=== PATIENT | female | born 1945 | race Caucasian/White ===

== ENCOUNTER → 2017-02-20 | Outpatient (CLI) | payer MEDICARE ==
--- NOTE | 2017-02-20 11:07 | XR ---
EXAMINATION TYPE: XR chest 2V DATE OF EXAM: 02/20/2017 COMPARISON: 07/01/2012 HISTORY: Unexpected weight loss and cough with history of tobacco abuse TECHNIQUE: Frontal and lateral views of the chest are obtained. FINDINGS: There is no focal air space opacity, pleural effusion, or pneumothorax seen. There is pulm onary hyperinflation, tapering of the pulmonary vasculature, and flattening of the diaphragms. The ca rdiac silhouette size is within normal limits. The osseous structures are intact. Degenerative shirley ges are appreciated of the thoracic spine. IMPRESSION: 1. No acute cardiopulmonary process. 2. No radiographic pulmonary nodules, however CT is better suited for assessment of pulmonary nodules . With a history of tobacco abuse low dose CT could be performed for annual lung cancer screening. 3. Radiographic sequela of COPD.
--- NOTE | 2017-02-21 09:27 | MM ---
Reason for exam: screening (asymptomatic). Last mammogram was performed 2 years and 2 months ago. History: Patient is postmenopausal. Benign stereotactic core biopsy of the right breast, December 14, 1999. Core biopsy of the right breast. Physical Findings: A clinical breast exam by your physician is recommended on an annual basis and results should be correlated with mammographic findings. MG 3D Screening Mammo W/Cad Bilateral CC and MLO view(s) were taken. Prior study comparison: December 24, 2014, bilateral MG screening mammo w CAD. May 20, 2014, left breast MG diagnostic mammo LT w CAD. December 02, 2013, bilateral MG screening mammo w CAD. The breast tissue is heterogeneously dense. This may lower the sensitivity of mammography. Finding: There are typically benign dystrophic, round, diffuse/scattered and grouped calcifications in the left breast. Previous mammotome biopsy in the right breast. Increase in number of calcifications since December 24, 2014, May 20, 2014, and December 02, 2013, but still benign morphology. ASSESSMENT: Benign, BI-RAD 2 RECOMMENDATION: Routine screening mammogram of both breasts in 1 year.
== END | disposition home or self-care (01) ==
LOC: RADMAMWWP 10:00
PROVIDERS: ATTEND Internal Medicine
DX: Z12.31 Encounter for screening mammogram for malignant neoplasm of breast (principal); R05 Cough; R91.8 Other nonspecific abnormal finding of lung field
CPT/HCPCS: 71020; 77063; G0202

== ENCOUNTER → 2017-03-01 | Outpatient (CLI) | payer MEDICARE ==
--- NOTE | 2017-03-01 13:46 | CT ---
EXAMINATION TYPE: CT chest w con DATE OF EXAM: 03/01/2017 COMPARISON: CT abdomen pelvis 04/05/2010 HISTORY: Pulmonary Nodule CT DLP: 494 mGycm Automated exposure control for dose reduction was used. CONTRAST: CT scan of the chest is performed with IV Contrast, patient injected with 100 mL of Omnipaque 300. FINDINGS: LUNGS: There is hyperinflation compatible with COPD. Upper lobe emphysematous changes are noted as we ll as biapical parenchymal scarring. No suspicious nodule or mass. No evidence for infiltrate or volu me loss. No pleural effusion detected. MEDIASTINUM: There are no greater than 1 cm hilar or mediastinal lymph nodes. No pericardial effusi on is seen. Thoracic aorta is of normal caliber. The heart is not enlarged. UPPER ABDOMEN: Nodular thickening of the left adrenal gland is stable. Splenic granulomas identified. OTHER: No additional significant abnormality is seen. IMPRESSION: 1. COPD with biapical scarring and mild emphysematous change.
== END | disposition home or self-care (01) ==
LOC: RADCTMAIN 12:16
PROVIDERS: ATTEND Internal Medicine
DX: J43.9 Emphysema, unspecified (principal); J98.4 Other disorders of lung
CPT/HCPCS: 82565; 84520; 71260; 36415; Q9967

== ENCOUNTER 2018-02-25 09:34 | Inpatient (IN) | payer MEDICARE ==
[2018-02-25] MEDS ORDERED: SODIUM CHLORIDE 0.9% 500 ML IV STA (09:49)
--- NOTE | 2018-02-25 10:02 | ED ---
General Adult HPI - General Chief complaint: Weakness Stated complaint: Leg Weakness Time Seen by Provider: 02/25/18 09:34 Source: patient, RN notes reviewed Mode of arrival: wheelchair Limitations: no limitations - History of Present Illness Initial comments: This is a 72-year-old female who presents emergency Department with left-sided weakness since last night at 8:00. Patient was unable to get out of the car and she needed assistance from her . She went to bed and woke up this morning continued to have difficulty walking and cord in the left side of her body she came to the emergency department. Patient is able to write her name but is not the same because she can't correlate her hand very well. Patient states her leg is also weak on the left. Patient denies any headache patient denies blurred vision. Patient denies any slurred speech. Patient denies any chest pain palpitations difficulty breathing or shortness of breath. Patient is complaint is her left leg is weak any catwalk without feeling she got a fall over. And her other complaint is that her left hand is uncoordinated when she is trying to do something. Patient states she's not had a previous stroke she is a heavy smoker. Patient denies any high blood pressure she does have high cholesterol. Patient denies any recent fever chills or cough. - Related Data Home Medications Medication Instructions Recorded Confirmed Aspirin EC [Ecotrin Low Dose] 81 mg PO HS 02/25/18 02/25/18 Atorvastatin [Lipitor] 80 mg PO HS 02/25/18 02/25/18 Allergies Allergy/AdvReac Type Severity Reaction Status Date / Time No Known Allergies Allergy Verified 02/25/18 11:11 Review of Systems ROS Statement: Those systems with pertinent positive or pertinent negative responses have been documented in the HPI. ROS Other: All systems not noted in ROS Statement are negative. Past Medical History Past Medical History: CVA/TIA, Hyperlipidemia History of Any Multi-Drug Resistant Organisms: None Reported Past Psychological History: No Psychological Hx Reported Smoking Status: Current every day smoker Past Alcohol Use History: None Reported Past Drug Use History: None Reported General Exam - General Exam Comments Initial Comments: GENERAL: Patient is well-developed and well-nourished. Patient is nontoxic and well- hydrated and is in no acute distress. ENT: Neck is soft and supple. No significant lymphadenopathy is noted. Oropharynx is clear. Moist mucous membranes. Neck has full range of motion without eliciting any pain. There is no thyroid enlargement and no masses were felt. EYES: The sclera were anicteric and conjunctiva were pink and moist. Extraocular movements were intact and pupils were equal round and reactive to light. Eyelids were unremarkable. PULMONARY: Unlabored respirations. Good breath sounds bilaterally. No audible rales rhonchi or wheezing was noted. CARDIOVASCULAR: There is a regular rate and rhythm without any murmurs gallops or rubs. Femoral pulses are equal bilaterally ABDOMEN: Soft and nontender with normal bowel sounds. No palpable organomegaly was noted. There is no palpable pulsatile mass. SKIN: Skin is clear with no lesions or rashes and otherwise unremarkable. NEUROLOGIC: Patient is alert and oriented x3. Cranial nerves II through XII are grossly intact. Patient has weakness when trying to lift her left leg and plantar and dorsiflexion. Patient also has poor finger-nose testing on the left hand. Patient has poor hpeq-ax-thcm movement as well. MUSCULOSKELETAL: Normal extremities with adequate strength and full range of motion. No lower extremity swelling or edema. No calf tenderness. LYMPHATICS: No significant lymphadenopathy is noted PSYCHIATRIC: Normal psychiatric evaluation. Normal interpersonal interactions appears functionally intact in deals appropriately with others. No signs of depression. Limitations: no limitations Course Vital Signs 02/25/18 09:37 Temperature 98.5 F Pulse Rate 99 Respiratory 18 Rate Blood Pressure 156/90 O2 Sat by Pulse 94 L Oximetry Medical Decision Making - Medical Decision Making EKG shows normal sinus rhythm at 94 bpm WI interval is 152 QRS is 84 Q-T intervals 380 QTC is 475. Patient's EKG shows no ST segment elevation or depression or T wave abnormalities are noted. Patient's CT and CTA were negative. Patient's chest x-ray was negative.. Patient continued to have strokelike symptoms. I gave the patient aspirin. I spoke with Dr. wright he agreed to accept the patient I admitted the patient I wrote admitting orders and I consult the neurology - Lab Data Result diagrams: 02/25/18 09:55 02/25/18 09:55 Lab Results 02/25/18 02/25/18 02/25/18 Range/Units 09:55 09:55 09:55 WBC 12.5 H (3.8-10.6) k/uL RBC 5.38 (3.80-5.40) m/uL Hgb 15.4 (11.4-16.0) gm/dL Hct 47.7 H (34.0-46.0) % MCV 88.7 (80.0-100.0) fL MCH 28.7 (25.0-35.0) pg MCHC 32.3 (31.0-37.0) g/dL RDW 16.1 H (11.5-15.5) % Plt Count 338 (150-450) k/uL Neutrophils % 63 % Lymphocytes % 23 % Monocytes % 6 % Eosinophils % 6 % Basophils % 1 % Neutrophils # 7.9 H (1.3-7.7) k/uL Lymphocytes # 2.9 (1.0-4.8) k/uL Monocytes # 0.7 (0-1.0) k/uL Eosinophils # 0.8 H (0-0.7) k/uL Basophils # 0.1 (0-0.2) k/uL Anisocytosis Slight PT (9.0-12.0) sec INR (<1.2) APTT (22.0-30.0) sec Sodium 141 (137-145) mmol/L Potassium 4.5 (3.5-5.1) mmol/L Chloride 107 (98-107) mmol/L Carbon Dioxide 27 (22-30) mmol/L Anion Gap 7 mmol/L BUN 24 H (7-17) mg/dL Creatinine 0.90 (0.52-1.04) mg/dL Est GFR (CKD-EPI)AfAm 75 (>60 ml/min/1.73 sqM) Est GFR (CKD-EPI)NonAf 65 (>60 ml/min/1.73 sqM) Glucose 102 H (74-99) mg/dL Calcium 9.1 (8.4-10.2) mg/dL Total Bilirubin 0.5 (0.2-1.3) mg/dL AST 50 H (14-36) U/L ALT 50 (9-52) U/L Alkaline Phosphatase 105 (38-126) U/L Total Creatine Kinase 153 H (30-135) U/L CK-MB (CK-2) 2.5 H* (0.0-2.4) ng/mL CK-MB (CK-2) Rel Index 1.6 Troponin I <0.012 (0.000-0.034) ng/mL Total Protein 7.6 (6.3-8.2) g/dL Albumin 4.0 (3.5-5.0) g/dL 02/25/18 Range/Units 09:55 WBC (3.8-10.6) k/uL RBC (3.80-5.40) m/uL Hgb (11.4-16.0) gm/dL Hct (34.0-46.0) % MCV (80.0-100.0) fL MCH (25.0-35.0) pg MCHC (31.0-37.0) g/dL RDW (11.5-15.5) % Plt Count (150-450) k/uL Neutrophils % % Lymphocytes % % Monocytes % % Eosinophils % % Basophils % % Neutrophils # (1.3-7.7) k/uL Lymphocytes # (1.0-4.8) k/uL Monocytes # (0-1.0) k/uL Eosinophils # (0-0.7) k/uL Basophils # (0-0.2) k/uL Anisocytosis PT 9.8 (9.0-12.0) sec INR 1.0 (<1.2) APTT 22.8 (22.0-30.0) sec Sodium (137-145) mmol/L Potassium (3.5-5.1) mmol/L Chloride (98-107) mmol/L Carbon Dioxide (22-30) mmol/L Anion Gap mmol/L BUN (7-17) mg/dL Creatinine (0.52-1.04) mg/dL Est GFR (CKD-EPI)AfAm (>60 ml/min/1.73 sqM) Est GFR (CKD-EPI)NonAf (>60 ml/min/1.73 sqM) Glucose (74-99) mg/dL Calcium (8.4-10.2) mg/dL Total Bilirubin (0.2-1.3) mg/dL AST (14-36) U/L ALT (9-52) U/L Alkaline Phosphatase (38-126) U/L Total Creatine Kinase (30-135) U/L CK-MB (CK-2) (0.0-2.4) ng/mL CK-MB (CK-2) Rel Index Troponin I (0.000-0.034) ng/mL Total Protein (6.3-8.2) g/dL Albumin (3.5-5.0) g/dL Disposition Clinical Impression: CVA (cerebral vascular accident) Disposition: ADMITTED IP TO THIS HOSP Referrals: Therese Omer MD [Primary Care Provider] - 1-2 days Time of Disposition: 11:46
[2018-02-25 10:13] LABS: Anisocytosis Slight; Basophils # (A) 0.1 k/uL (0-0.2); Basophils % (A) 1 %; Eosinophils # (A) 0.8 k/uL (0-0.7); Eosinophils % (A) 6 %; HCT 47.7 % (34.0-46.0); HGB 15.4 gm/dL (11.4-16.0); Lymphocytes # (A) 2.9 k/uL (1.0-4.8); Lymphocytes % (A) 23 %; MCH 28.7 pg (25.0-35.0); MCHC 32.3 g/dL (31.0-37.0); MCV 88.7 fL (80.0-100.0); Mean Platelet Volume 6.9; Monocytes # (A) 0.7 k/uL (0-1.0); Monocytes % (A) 6 %; Neutrophils # (A) 7.9 k/uL (1.3-7.7); Neutrophils % (A) 63 %; Platelet Count 338 k/uL (150-450); RBC 5.38 m/uL (3.80-5.40); RDW 16.1 % (11.5-15.5); WBC 12.5 k/uL (3.8-10.6)
[2018-02-25 10:21] LABS: Calcium 9.1 mg/dL (8.4-10.2); Potassium 4.5 mmol/L (3.5-5.1); Total Bilirubin 0.5 mg/dL (0.2-1.3); Total Protein 7.6 g/dL (6.3-8.2)
[2018-02-25 10:27] LABS: Partial Thromboplastin Time 22.8 sec (22.0-30.0); Prothrombin Time 9.8 sec (9.0-12.0)
--- NOTE | 2018-02-25 10:32 | CT ---
EXAMINATION TYPE: CT brain wo con for TPA DATE OF EXAM: 02/25/2018 COMPARISON: Previous study dated 07/17/2012 HISTORY: Lt sided weakness CT DLP: 999.8 mGycm Automated exposure control for dose reduction was used. FINDINGS: There are mild, generalized changes of sulcal prominence and ventriculomegaly, compatible with mild a trophic change. There is diffuse periventricular white matter lucency, compatible with chronic white matter ischemic change. There are bilateral lacunar infarcts in the caudate nuclear lab bilaterally. There is no mass effect, midline shift or intracranial blood. Visualized portions of the paranasal sinuses and mastoids are clear. The bony calvarium is intact. IMPRESSION: 1. NO ACUTE INTRACRANIAL ABNORMALITY. 2. 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 3. DEGENERATIVE CHANGE.
--- NOTE | 2018-02-25 10:39 | XR ---
EXAMINATION TYPE: XR chest 1V DATE OF EXAM: 02/25/2018 HISTORY: altered mental status. REFERENCE: Previous study dated 02/20/2017. FINDINGS: The lungs are overinflated. There is some scarring or atelectasis at the left lung base. Jennifer ngs otherwise clear. Pleural space are clear. The heart is not enlarged. IMPRESSION: 1. COPD. 2. SCARRING VERSUS ATELECTASIS, LEFT LUNG BASE.
[2018-02-25 10:59] LABS: Creatine Kinase 153 U/L (30-135)
--- NOTE | 2018-02-25 11:06 | CT ---
EXAMINATION TYPE: CT angio head neck DATE OF EXAM: 02/25/2018 HISTORY: Lt sided weakness COMPARISON: Unenhanced CT scan of the brain from earlier today. CT DLP: 223.0 mGycm. Automated Exposure Control for Dose Reduction was Utilized. TECHNIQUE: CTA scan of the neck is performed with IV Contrast, patient injected with 65 mL of Isovue 370, axial images are obtained, coronal and sagittal reformatted images are reviewed. Three-D recons tructed images are created on an independent workstation and reviewed. FINDINGS: There are diffuse emphysematous changes within the visualized portions of the lungs. There is apical scarring bilaterally. Soft tissues of the neck are unremarkable. There is mild degenerative disc disease at C3-4, C4-5 and C6-7. There is a normal origin of the great vessels. There is mild atheromatous calcification at the caroti d bulbs. There is no significant stenosis in either carotid system. Vertebral arteries are codominant. There is a origin of the left posterior cerebral artery. The re is normal arborization of the middle cerebral arteries. Both anterior cerebral arteries are patent . No sizable aneurysm is seen. IMPRESSION: 1. MINIMAL ATHEROMATOUS CALCIFICATION OF THE CAROTID BULBS WITHOUT HEMODYNAMICALLY SIGNIFICANT STENOS IS ON EITHER SIDE. 2. NORMAL MRI OF THE TELLER OF HYMAN.
[2018-02-25 11:10] LABS: Troponin I <0.012 ng/mL (0.000-0.034)
[2018-02-25 11:17] LABS: Creatine Kinase MB 2.5 ng/mL (0.0-2.4)
[2018-02-25] MEDS ORDERED: hydrALAZINE HCL 20 MG/ML 1 ML VIAL IVP STA (11:54)
[2018-02-25] MEDS ORDERED: IPRATROPIUM-ALBUTEROL 3 ML NEB INHALATION STA (11:54)
[2018-02-25] MEDS: ATORVASTATIN 80 MG TAB PO SCH (20:01)
--- NOTE | 2018-02-25 23:40 | P.CNNES ---
History of Present Illness Consult date: 02/25/18 History of Present Illness: The patient is a 72-year-old left-handed white female who states that nSaturday night she was gtting out of ar leg went numb. When she went to bed and she woke up with worsening left arm and leg weakness. There was also numbness in the left leg. Her coordination was off to the point where she had difficulty walking. She felt her legs felt like rubber. The patient denied any other neurologic complaints such as double vision slurred speech facial droop or dizziness Patient gives a history of TIA 5 years ago but does not recall what her symptoms were at the time. She does take 1 baby aspirin daily. She does smoke one pack of cigarettes a day. The patient was admitted through the emergency room with stroke. She had a CT of the brain which showed old lacunar infarcts in both basal ganglia. No acute abnormality. She had a CT angiogram of the head and neck which showed minimal calcification of the carotid bulbs without hemodynamically significant stenosis. Review of Systems Constitutional: Denies chills, Denies fever Eyes: denies blurred vision, denies pain Ears, nose, mouth and throat: Denies headache, Denies sore throat Cardiovascular: Denies chest pain, Denies shortness of breath Respiratory: Denies cough Gastrointestinal: Denies abdominal pain, Denies diarrhea, Denies nausea, Denies vomiting Musculoskeletal: Denies myalgias Neurological: Denies numbness, Denies weakness Psychiatric: Denies anxiety, Denies depression Past Medical History Past Medical History: CVA/TIA, Hyperlipidemia History of Any Multi-Drug Resistant Organisms: None Reported Additional Past Surgical History / Comment(s): bilateral cataract removed November 2017 Past Anesthesia/Blood Transfusion Reactions: No Reported Reaction Past Psychological History: No Psychological Hx Reported Smoking Status: Current every day smoker Past Alcohol Use History: None Reported Past Drug Use History: None Reported Medications and Allergies Home Medications Medication Instructions Recorded Confirmed Type Aspirin EC [Ecotrin Low Dose] 81 mg PO HS 02/25/18 02/25/18 History Atorvastatin [Lipitor] 80 mg PO HS 02/25/18 02/25/18 History Allergies Allergy/AdvReac Type Severity Reaction Status Date / Time No Known Allergies Allergy Verified 02/25/18 11:11 Physical Examination - Vital Signs Vital Signs: Vital Signs Temp Pulse Pulse Resp BP BP Pulse Ox 02/25/18 20:00 98.0 F 88 18 136/72 94 L 02/25/18 16:00 97.0 F L 80 16 166/77 94 L 02/25/18 12:13 76 16 191/93 97 02/25/18 11:50 96.8 F L 74 16 188/91 96 02/25/18 11:46 78 16 164/100 93 L 02/25/18 11:00 74 16 194/96 93 L 02/25/18 10:40 80 16 182/95 95 02/25/18 09:40 100 16 189/90 95 02/25/18 09:37 98.5 F 99 18 156/90 94 L Intake and Output 02/25/18 02/25/18 02/26/18 14:59 22:59 06:59 Intake Total 240 240 Balance 240 240 Intake: Oral 240 240 Other: Voiding Method Toilet Weight 72.575 kg - Constitutional General appearance: average body habitus, thin - EENT EENT: PERRL, hearing intact, vision intact - Respiratory Respiratory: lungs clear - Cardiovascular Cardiovascular: regular rate, normal S1 - Integumentary Integumentary: normal - Neurologic Neurologic examination: Mental status: He she was awake alert and oriented 3. Her speech was fluent there is no a aphasia or dysarthria. Cranial nerve examination: PERRL, VFF, V1/V2/V3 grossly intact, face symmetric Speech examination: intact Sensorimotor examination: intact Detailed motor examination: grossly full strength in all extremities Motor examination - right side: 5/5: biceps, triceps, knee extensors Motor examination - left side: 3/5: hip flexors, knee extensors, 4/5: biceps Detailed sensory examination: intact - Psychiatric Psychiatric: mood/affect appropriate Results - Laboratory Findings CBC and BMP: 02/25/18 09:55 02/25/18 09:55 Abnormal Lab Findings: Abnormal Labs 02/25/18 02/25/18 02/25/18 09:55 09:55 09:55 WBC 12.5 H Hct 47.7 H RDW 16.1 H Neutrophils # 7.9 H Eosinophils # 0.8 H BUN 24 H Glucose 102 H AST 50 H Total Creatine Kinase 153 H CK-MB (CK-2) 2.5 H* Assessment and Plan (1) CVA (cerebral vascular accident) Current Visit: Yes Status: Acute SNOMED Code(s): 010478068 Plan: The patient is a 72-year-old woman with history of left sided weakness and prior history of TIA. She has been taking one baby aspirin daily. Her stroke risk factors are high cholesterol and smoking. The patient has likely had a right subcortical infarct with left-sided weakness. Recommend PT OT. Recommend echocardiogram. Recommend aspirin 325 mg a day. Recommend MRI of the brain
[2018-02-25 23:53] LABS: Cholesterol 163 mg/dL (<200); HDL Cholesterol 46 mg/dL (40-60); LDL Cholesterol,Calculated 98 mg/dL (0-99); Triglycerides 97 mg/dL (<150)
[2018-02-26] MEDS: ASPIRIN 325 MG TAB PO SCH (08:04)
--- NOTE | 2018-02-26 09:27 | MR ---
EXAMINATION TYPE: MR brain wo con DATE OF EXAM: 02/26/2018 COMPARISON: CT brain from yesterday and older exam from 2013. Prior MRI brain July 14, 2012. HISTORY: Stroke per order. Patient admitted for left-sided weakness for neuro deficit yesterday. TECHNIQUE: Multiplanar, multisequence imaging of the brain and brainstem is performed without IV cont rast. FINDINGS: Diffusion weighted images demonstrate roughly 1.5 x 1.0 cm area at level of right yun radiata fron chun parietal junction periventricular level image 152 series 305 that shows increased signal on diffu katelyn weighted images with diminished signal on ADC mapping that shows diminished T1 and increased T2 signal consistent with evolving acute infarct just above the thalamus. There is a smaller 5 mm focus deep left parietal white matter at level of centrum semiovale image 168 series 305 of increased signa l on diffusion weighted images and diminished signal on ADC mapping with increased T2 signal consiste nt with second focus of evolving acute infarct. There is no worrisome extra-axial fluid collection. The ventricular system and cisternal spaces are normal in size and appearance. The brain volume is age appropriate. There are focal and confluent ar eas of T2 hyperintensity seen throughout the deep and periventricular white matter. Lesions are nonsp ecific in appearance and distribution but most likely on basis of product of chronic small vessel isc hemic change. Progression in findings from 2012 MRI is noted. Lesion is involving the right cerebella r peduncle axial image 9 is redemonstrated unchanged from prior MRI. Midline structures demonstrate normal morphology. The craniocervical junction appears within normal limits. Normal vascular flow voids are present. The visualized sinuses are clear and the globes are i ntact. Nasal septum is deviated to right of midline. There is mild mucosal thickening involving ethmo id sinuses bilaterally. IMPRESSION: 1. There is evolving acute right-sided periventricular infarct level of yun radiata frontal pariet al junction. There is evolving acute lacunar infarct left centrum semiovale at level of deep parietal white matter. 2. There is moderate to advanced nonspecific white matter changes may be on basis of product of chron ic small vessel ischemic change. Combination of etiologies are not excluded. Progression from prior M RI is noted.
[2018-02-26 10:27] VITALS: BMI 20.9
--- NOTE | 2018-02-26 11:29 | P.HPIM ---
History of Present Illness This is a pleasant 72 years old female with past medical history of hyperlipidemia, TIA on aspirin, fall about 4 months ago. She presents because of left sided weakness. As per patient 2 days ago she felt numbness in her left leg which results, next morning she woke up with weakness in her left leg and left upper extremity with the legs more than arm. Patient denies headache. No slurred speech no difficulty in swallowing. No blurred vision. Patient denies chest pain, no dyspnea. No change in urine or bowel habits. No fever In the ED, a shunt has high WBC at 12.5 K, rest of CBC was unremarkable. INR 1.0. BMP was unremarkable a sodium 141, potassium 4.5, creatinine 0.9. Troponin less than 0.012. Patient has negative CT of the brain. Chest x-ray shows COPD. CTA of the neck shows no significant hemodynamic stenosis. There is MRI of the brain which shows acute right sided. Ventricular infarct as well as evolving acute left infarct in the centrum semiovale and the white matter. Chronic small vessel ischemic changes Review of Systems CONSTITUTIONAL: No fever, no malaise, no fatigue. HEENT: No recent visual problems or hearing problems. Denied any sore throat. CARDIOVASCULAR: No orthopnea, PND, no palpitations, no syncope. PULMONARY: No shortness of breath, no cough, no hemoptysis. GASTROINTESTINAL: No diarrhea, no nausea, no vomiting, no abdominal pain. Normoactive bowel sounds. NEUROLOGICAL: No headaches, no weakness, no numbness. HEMATOLOGICAL: Denies any bleeding or petechiae. GENITOURINARY: Denies any burning micturition, frequency, or urgency. MUSCULOSKELETAL/RHEUMATOLOGICAL: Denies any joint pain, swelling, or any muscle pain. ENDOCRINE: Denies any polyuria or polydipsia. Past Medical History Past Medical History: CVA/TIA, Hyperlipidemia History of Any Multi-Drug Resistant Organisms: None Reported Additional Past Surgical History / Comment(s): bilateral cataract removed November 2017 Past Anesthesia/Blood Transfusion Reactions: No Reported Reaction Past Psychological History: No Psychological Hx Reported Smoking Status: Current every day smoker Past Alcohol Use History: None Reported Past Drug Use History: None Reported Medications and Allergies Home Medications Medication Instructions Recorded Confirmed Type Aspirin EC [Ecotrin Low Dose] 81 mg PO HS 02/25/18 02/25/18 History Atorvastatin [Lipitor] 80 mg PO HS 02/25/18 02/25/18 History Allergies Allergy/AdvReac Type Severity Reaction Status Date / Time No Known Allergies Allergy Verified 02/25/18 11:11 Physical Exam Vitals: Vital Signs Temp Pulse Pulse Resp BP BP Pulse Ox 02/26/18 07:58 98.2 F 98 16 136/70 93 L 02/26/18 04:00 97.6 F 84 17 138/84 92 L 02/26/18 00:00 98.3 F 83 16 157/87 94 L 02/25/18 20:00 98.0 F 88 18 136/72 94 L 02/25/18 16:00 97.0 F L 80 16 166/77 94 L 02/25/18 12:13 76 16 191/93 97 02/25/18 11:50 96.8 F L 74 16 188/91 96 02/25/18 11:46 78 16 164/100 93 L Intake and Output 02/25/18 02/26/18 02/26/18 22:59 06:59 14:59 Intake Total 240 240 Balance 240 240 Intake: Oral 240 240 Other: Voiding Method Toilet Toilet # Voids 1 Weight 64.4 kg 64.4 kg GENERAL: The patient is alert and oriented x3, not in any acute distress. Well developed, well nourished. HEENT: Pupils are round and equally reacting to light. EOMI. No scleral icterus. No conjunctival pallor. Normocephalic, atraumatic. No pharyngeal erythema. No thyromegaly. CARDIOVASCULAR: S1 and S2 present. No murmurs, rubs, or gallops. PULMONARY: Chest is clear to auscultation, no wheezing or crackles. ABDOMEN: Soft, nontender, nondistended, normoactive bowel sounds. No palpable organomegaly. MUSCULOSKELETAL: No joint swelling or deformity. EXTREMITIES: No cyanosis, clubbing, or pedal edema. - mild weakness of her left forearm, and more significant weakness of her left leg NEUROLOGICAL: Gross neurological examination did not reveal any focal deficits. SKIN: No rashes. Results CBC & Chem 7: 02/25/18 09:55 02/25/18 09:55 Labs: Abnormal Lab Results - Last 24 Hours (Table) 02/25/18 Range/Units 09:55 CK-MB (CK-2) 2.5 H* (0.0-2.4) ng/mL Thrombosis Risk Factor Assmnt - Choose All That Apply Other Risk Factors: Yes Each Risk Factor Represents 2 Points: Age 61-74 years Thrombosis Risk Factor Assessment Total Risk Factor Score: 2 Thrombosis Risk Factor Assessment Level: Low Risk Assessment and Plan Assessment: Bilateral acute infarct on MRI of the brain on 02/26/2018 Hyperlipidemia Plan: This is a pleasant 72 years old female who presents with signs symptoms of acute stroke. Continue same treatment. Continue symptomatic treatment. Neurological evaluation is appreciated. Patient is already on aspirin and statin. We'll add Plavix. Echo: Pending. As for physical therapy evaluation. GI and DVT prophylaxis. Further recommendation the clinical course DVT prophylaxis subcutaneous heparin GI prophylaxis Pepcid PT/OT:Pending Prognosis is guarded
[2018-02-26] MEDS: CLOPIDOGREL 75 MG TAB PO SCH (12:09)
[2018-02-26] MEDS: HEPARIN SODIUM,PORCINE 5,000 UNIT/ML 1 ML VIAL SQ SCH ×2 (12:09→20:24)
--- NOTE | 2018-02-26 19:34 | P.PN ---
Subjective Progress Note Date: 02/26/18 The patient is a 72-year-old woman who was admitted to the hospital yesterday with left-sided weakness. The patient reports that today she is doing much better. She is able to lift her leg today. She is still unable to walk. She did have some physical therapy. She denies any new complaints such as numbness speech disturbance visual disturbance or dizziness. She had an MRI of the brain which showed bilateral infarcts and nonspecific white matter changes. Cardiology has been consulted to evaluate for KEYA. She has had a CT angiogram of the head and neck which was unremarkable. Objective - Vital Signs Vital signs: Vital Signs Temp 98.3 F 02/26/18 16:00 Pulse 84 02/26/18 16:00 Resp 16 02/26/18 16:00 BP 128/78 02/26/18 16:00 Pulse Ox 96 02/26/18 16:00 Intake & Output 02/26/18 02/26/18 02/27/18 06:59 18:59 06:59 Intake Total 960 Balance 960 Weight 64.4 kg 64.4 kg Intake: Oral 960 Other: Voiding Method Toilet # Voids 1 1 - Constitutional General appearance: Present: thin - EENT Eyes: Present: EOMI, PERRLA ENT: Present: hearing grossly normal - Respiratory Respiratory: bilateral: CTA - Cardiovascular Rhythm: regular - Neurologic Neurologic Comment(s): Neurologic examination: Mental status: She was awake alert and oriented. There was no a aphasia or dysarthria. Neurologic: Present: CNII-XII intact - Musculoskeletal Musculoskeletal: Present: left sided weakness - Psychiatric Psychiatric: Present: A&O x's 3, appropriate affect - Labs CBC & Chem 7: 02/25/18 09:55 02/25/18 09:55 Assessment and Plan (1) CVA (cerebral vascular accident) Current Visit: Yes Status: Acute SNOMED Code(s): 556848445 Plan: The patient is a 72-year-old woman with history of left sided weakness and prior history of TIA. She has been taking one baby aspirin daily. Her stroke risk factors are high cholesterol and smoking. The patient has had an MRI of the brain today which showed bilateral infarcts. Cardiology is consulted for evaluation for KEYA. Patient has been placed on Plavix and aspirin. Recommend possible inpatient rehab
[2018-02-26] MEDS: ATORVASTATIN 80 MG TAB PO SCH (20:24)
[2018-02-26] MEDS: FAMOTIDINE 20 MG/2 ML VIAL IV SCH (20:30)
[2018-02-27] MEDS: FAMOTIDINE 20 MG/2 ML VIAL IV SCH ×2 (11:14→21:16)
[2018-02-27] MEDS: ASPIRIN 325 MG TAB PO SCH (11:14)
[2018-02-27] MEDS: CLOPIDOGREL 75 MG TAB PO SCH (11:14)
[2018-02-27] MEDS: HEPARIN SODIUM,PORCINE 5,000 UNIT/ML 1 ML VIAL SQ SCH ×2 (11:15→21:16)
--- NOTE | 2018-02-27 12:06 | P.CRDCN ---
History of Present Illness Consult date: 02/27/18 Requesting physician: Ramon Upton Chief complaint: Left-sided weakness History of present illness: This is a pleasant 72-year-old female with history of hyperlipidemia and nicotine dependence, who presented to the hospital with symptoms of left arm and left leg weakness. According to the patient, she had been told in the past to have a prior TIA. CAT scan on admission here did not reveal any acute intracranial abnormality. It did reveal an old lacunar infarct in both basal ganglia. Chest x-ray showed COPD. CT angiography revealed minimal atheromatous calcification in the carotid bulbs without hemodynamically significant stenosis on either side. Normal MRI of the [place] of [place]. EKG on presentation here showed a normal sinus rhythm with a left anterior fascicular block, no acute changes noted. MRI of the brain revealed an evolving acute right sided periventricular infarct at the level of the yun radiata frontal parietal junction. There is evolving acute lacunar infarct in the left centrum semiovale at level of deep parietal white matter.Moderate to advanced nonspecific white matter changes. Blood pressure this morning 194/96, heart rate in the 70s, 93% on room air. Blood cell count 12.5, hemoglobin 15.4 , platelet count 338. Sodium 141, potassium 4.5, BUN 24, creatinine 0.9. Troponin 0.012. At the time of my examination this morning, patient's left arm strength seems to be improving, she continues to have weakness in the left leg. Cardiology consultation was requested, and we were asked to perform a transesophageal echocardiographic study. The risks and the benefits of this procedure were explained to the patient in detail. This will be performed tomorrow by Dr. VC Franklin. Past Medical History Past Medical History: CVA/TIA, Hyperlipidemia History of Any Multi-Drug Resistant Organisms: None Reported Additional Past Surgical History / Comment(s): bilateral cataract removed November 2017 Past Anesthesia/Blood Transfusion Reactions: No Reported Reaction Past Psychological History: No Psychological Hx Reported Smoking Status: Current every day smoker Past Alcohol Use History: None Reported Past Drug Use History: None Reported Medications and Allergies Home Medications Medication Instructions Recorded Confirmed Type Aspirin EC [Ecotrin Low Dose] 81 mg PO HS 02/25/18 02/25/18 History Atorvastatin [Lipitor] 80 mg PO HS 02/25/18 02/25/18 History Allergies Allergy/AdvReac Type Severity Reaction Status Date / Time No Known Allergies Allergy Verified 02/25/18 11:11 Physical Exam Vitals: Vital Signs Temp Pulse Resp BP Pulse Ox 02/27/18 11:10 96.8 F L 83 18 167/88 90 L 02/27/18 07:40 96.8 F L 82 18 167/84 94 L 02/27/18 04:00 97.9 F 67 16 127/56 96 02/27/18 00:00 98 F 68 16 118/67 97 02/26/18 20:00 97.9 F 70 16 120/62 96 02/26/18 16:00 98.3 F 84 16 128/78 96 02/26/18 12:00 97.3 F L 62 16 118/70 97 Intake and Output 02/26/18 02/27/18 02/27/18 22:59 06:59 14:59 Intake Total 840 0 250 Balance 840 0 250 Intake: Oral 840 0 250 Other: Voiding Method Toilet Toilet Toilet # Voids 2 2 Weight 64.4 kg 64.9 kg PHYSICAL EXAMINATION: GENERAL: 72-year-old female in no acute distress at the time of our examination. HEENT: Head is atraumatic, normocephalic. Pupils equal, round. Sclera anicteric. Conjunctiva are clear. Mucous membranes of the mouth are moist. Neck is supple. There is no elevated jugular venous pressure.] bruit is heard. HEART EXAMINATION: Heart S1, S2 normal. No murmur or gallop heard. CHEST EXAMINATION: Lungs are clear to auscultation and precussion. No chest wall tenderness is noted on palpation or with deep breathing. ABDOMEN: Soft, nontender. Bowel sounds are heard. No organomegaly noted. EXTREMITIES: 2+ peripheral pulses with no evidence of peripheral edema and no calf tenderness noted. NEUROLOGIC patient is awake, alert and oriented ?-3. Patient does continue to have weakness in the left leg, mild weakness in the left hand . Results 02/25/18 09:55 02/25/18 09:55 Current Medications Generic Name Dose Route Start Last Admin Trade Name Freq PRN Reason Stop Dose Admin Aspirin 325 mg 02/26/18 09:00 02/27/18 11:14 Aspirin PO 325 mg DAILY ELIANA Administration Atorvastatin Calcium 80 mg 02/25/18 21:00 02/26/18 20:24 Lipitor PO 80 mg HS ELIANA Administration Clopidogrel Bisulfate 75 mg 02/26/18 11:30 02/27/18 11:14 Plavix PO 75 mg DAILY ELIANA Administration Famotidine 20 mg 02/26/18 21:00 02/27/18 11:14 Pepcid IV 20 mg Q12HR ELIANA Administration Heparin Sodium (Porcine) 5,000 unit 02/26/18 11:30 02/27/18 11:15 Heparin SQ 5,000 unit Q12HR ELIANA Administration Intake and Output 02/26/18 02/27/18 02/27/18 22:59 06:59 14:59 Intake Total 840 0 250 Balance 840 0 250 Intake: Oral 840 0 250 Other: Voiding Method Toilet Toilet Toilet # Voids 2 2 Weight 64.4 kg 64.9 kg 02/25/18 09:55 02/25/18 09:55 EKG Interpretations (text) EKG shows a normal sinus rhythm with left anterior fascicular block. Assessment and Plan Plan: Assessment and plan #1 acute CVA #2 hyperlipidemia #3 nicotine dependence Plan We will obtain an echocardiogram with Doppler study. Patient will be scheduled tomorrow to undergo transesophageal echocardiographic study. The risks and the benefits of the procedure were explained in detail, this will be performed tomorrow by Dr. VC Franklin. DNP note has been reviewed, I agree with a documented findings and plan of care. Patient was seen and examined.
--- NOTE | 2018-02-27 15:29 | P.PN ---
Subjective This is a pleasant 72 years old female with past medical history of hyperlipidemia, TIA on aspirin, fall about 4 months ago. She presents because of left sided weakness. As per patient 2 days ago she felt numbness in her left leg which results, next morning she woke up with weakness in her left leg and left upper extremity with the legs more than arm. Patient denies headache. No slurred speech no difficulty in swallowing. No blurred vision. Patient denies chest pain, no dyspnea. No change in urine or bowel habits. No fever In the ED, a shunt has high WBC at 12.5 K, rest of CBC was unremarkable. INR 1.0. BMP was unremarkable a sodium 141, potassium 4.5, creatinine 0.9. Troponin less than 0.012. Patient has negative CT of the brain. Chest x-ray shows COPD. CTA of the neck shows no significant hemodynamic stenosis. There is MRI of the brain which shows acute right sided. Ventricular infarct as well as evolving acute left infarct in the centrum semiovale and the white matter. Chronic small vessel ischemic changes Subjective 02/27/2018 Patient feels better today, she couldn't move her left arm and leg more freely and she can hold her up and straight which she couldn't do yesterday. Patient might go for a KEYA tomorrow Objective - Vital Signs Vital signs: Vital Signs Temp 96.8 F L 02/27/18 11:10 Pulse 83 02/27/18 11:10 Resp 18 02/27/18 11:10 BP 167/88 02/27/18 11:10 Pulse Ox 90 L 02/27/18 11:10 Intake & Output 02/26/18 02/27/18 02/27/18 18:59 06:59 18:59 Intake Total 960 480 250 Balance 960 480 250 Weight 64.4 kg 64.9 kg Intake: Oral 960 480 250 Other: Voiding Method Toilet Toilet # Voids 1 2 - Exam GENERAL: The patient is alert and oriented x3, not in any acute distress. Well developed, well nourished. HEENT: Pupils are round and equally reacting to light. EOMI. No scleral icterus. No conjunctival pallor. Normocephalic, atraumatic. No pharyngeal erythema. No thyromegaly. CARDIOVASCULAR: S1 and S2 present. No murmurs, rubs, or gallops. PULMONARY: Chest is clear to auscultation, no wheezing or crackles. ABDOMEN: Soft, nontender, nondistended, normoactive bowel sounds. No palpable organomegaly. MUSCULOSKELETAL: No joint swelling or deformity. EXTREMITIES: No cyanosis, clubbing, or pedal edema. - mild weakness of her left forearm, and more significant weakness of her left leg , both improving NEUROLOGICAL: Gross neurological examination did not reveal any focal deficits. SKIN: No rashes. - Labs CBC & Chem 7: 02/25/18 09:55 02/25/18 09:55 Assessment and Plan Assessment: Bilateral acute infarct on MRI of the brain on 02/26/2018 Hyperlipidemia Plan: This is a pleasant 72 years old female who presents with signs symptoms of acute stroke. Continue same treatment. Continue symptomatic treatment. Neurological evaluation is appreciated. Patient is already on aspirin and statin. We'll add Plavix. Echo: Pending. As for physical therapy evaluation. GI and DVT prophylaxis. Further recommendation the clinical course DVT prophylaxis subcutaneous heparin GI prophylaxis Pepcid PT/OT:Pending Prognosis is guarded
[2018-02-27] MEDS: ATORVASTATIN 80 MG TAB PO SCH (21:17)
[2018-02-28] MEDS: ACETAMINOPHEN TAB 325 MG TAB PO PRN ×3 (06:12→23:07)
[2018-02-28 06:19] LABS: Basophils % (A) 0 %; Eosinophils # (A) 0.3 k/uL (0-0.7); Eosinophils % (A) 1 %; HCT 45.5 % (34.0-46.0); Lymphocytes % (A) 5 %; MCH 28.9 pg (25.0-35.0); MCHC 33.1 g/dL (31.0-37.0); MCV 87.4 fL (80.0-100.0); Mean Platelet Volume 7.2; Monocytes # (A) 0.8 k/uL (0-1.0); Monocytes % (A) 4 %; Neutrophils # (A) 16.8 k/uL (1.3-7.7); Neutrophils % (A) 89 %; Platelet Count 304 k/uL (150-450); RDW 15.8 % (11.5-15.5); WBC 18.9 k/uL (3.8-10.6)
[2018-02-28 06:36] LABS: Potassium 4.2 mmol/L (3.5-5.1)
[2018-02-28] MEDS: FAMOTIDINE 20 MG TAB PO SCH ×2 (07:58→21:49)
[2018-02-28] MEDS: CLOPIDOGREL 75 MG TAB PO SCH (07:58)
[2018-02-28] MEDS: ASPIRIN 325 MG TAB PO SCH (07:58)
[2018-02-28] MEDS: HEPARIN SODIUM,PORCINE 5,000 UNIT/ML 1 ML VIAL SQ SCH ×2 (07:58→21:49)
[2018-02-28] MEDS ORDERED: MIDAZOLAM 2 MG/2 ML VIAL ONE ×2 (09:19)
[2018-02-28] MEDS ORDERED: fentaNYL (PF) 50 MCG/ML 2 ML AMP ONE (09:19)
[2018-02-28] MEDS ORDERED: SODIUM CHLORIDE 0.9% 500 ML IV ONE (09:30)
[2018-02-28] MEDS ORDERED: BENZOCAINE SPRAY 1 CAN MUCOUS MEM ONE (09:32)
[2018-02-28] MEDS ORDERED: fentaNYL (PF) 50 MCG/ML 2 ML AMP IV ONE (09:43)
[2018-02-28] MEDS ORDERED: MIDAZOLAM 2 MG/2 ML VIAL IV ONE (09:43)
--- NOTE | 2018-02-28 10:23 | ECHOT ---
TRANSESOPHAGEAL ECHOCARDIOGRAM This patient was seen in consultation yesterday because patient presented with a CVA. MRI is suggestive of possible lacunar infarct. There is no definite evidence of any cortical infarct. The patient was advised further evaluation with transesophageal echocardiogram to rule out any cardiac source of emboli. The patient was given intravenous sedation with Versed and fentanyl and transesophageal echocardiogram was performed without any complications. FINDINGS: Left ventricular chamber is normal in size with normal left ventricular systolic function. Mitral valve morphology is normal. There is a mild mitral regurgitation noted. Mild thickening of the aortic leaflets noted. There is no definite evidence of any vegetations or thrombus. There is no evidence of thrombus in left atrium or atrial appendage. No aortic regurgitation is noted. Interatrial septum is intact. There is no evidence of any PFO by saline contrast study. There is a mild atherosclerotic plaque noted in the descending thoracic aorta. FINAL IMPRESSION: 1. There is no evidence of thrombus in left atrium or atrial appendage. 2. Aortic and mitral valve shows mild thickening without any evidence of thrombus. 3. The left ventricular systolic function is normal. 4. Interatrial septum is intact. There is no evidence of any patent foramen ovale. RECOMMENDATIONS: Continue the current treatment. Most likely, this patient's stroke is due to the small vessel disease. MMODL / IJN: [id number] /
--- NOTE | 2018-02-28 10:38 | ECHOF ---
Referral Reason:cva MEASUREMENTS -------- HEIGHT: 175.3 cm WEIGHT: 64.9 kg BP: 167/84 RVIDd: 2.5 cm (< 3.3) IVSd: 1.2 cm (0.6 - 1.1) LVIDd: 3.8 cm (3.9 - 5.3) LVPWd: 1.1 cm (0.6 - 1.1) IVSs: 1.5 cm LVIDs: 2.7 cm LVPWs: 1.4 cm LA Diam: 2.3 cm (2.7 - 3.8) LAESV Index (A-L): 15.24 ml/m Ao Diam: 3.4 cm (2.0 - 3.7) AV Cusp: 2.0 cm (1.5 - 2.6) MV EXCURSION: 12.690 mm (> 18.000) MV EF SLOPE: 60 mm/s (70 - 150) EPSS: 1.1 cm MV E Emanuel: 0.45 m/s MV DecT: 375 ms MV A Emanuel: 0.64 m/s MV E/A Ratio: 0.70 RAP: 5.00 mmHg RVSP: 22.55 mmHg FINDINGS -------- Sinus rhythm. This was a technically good study. The left ventricular size is normal. There is borderline concentric left ventricular hypertrophy. Overall left ventricular systolic function is mild-moderately impaired with, an EF between 40 - 45 % . The right ventricle is normal in size. Normal LA size by volume 22+/-6 ml/m2. The right atrium is normal in size. There is mild aortic valve sclerosis. The mitral valve is normal. Mild tricuspid regurgitation present. Right ventricular systolic pressure is normal at < 35 mmHg. The pulmonic valve was not well visualized. The aortic root size is normal. Normal inferior vena cava with normal inspiratory collapse consistent with estimated right atrial pre ssure of 5 mmHg. There is no pericardial effusion. CONCLUSIONS -------- 1. Sinus rhythm. 2. This was a technically good study. 3. The left ventricular size is normal. 4. There is borderline concentric left ventricular hypertrophy. 5. Overall left ventricular systolic function is mild-moderately impaired with, an EF between 40 - 45 %. 6. The right ventricle is normal in size. 7. Normal LA size by volume 22+/-6 ml/m2. 8. The right atrium is normal in size. 9. There is mild aortic valve sclerosis. 10. The mitral valve is normal. 11. Mild tricuspid regurgitation present. 12. Right ventricular systolic pressure is normal at < 35 mmHg. 13. The pulmonic valve was not well visualized. 14. The aortic root size is normal. 15. Normal inferior vena cava with normal inspiratory collapse consistent with estimated right atrial pressure of 5 mmHg. 16. There is no pericardial effusion. [employer]: Peyton Lara RDCS
--- NOTE | 2018-02-28 15:15 | XR ---
EXAMINATION TYPE: XR chest 2V DATE OF EXAM: 02/28/2018 COMPARISON: 02/25/2018 INDICATION: Fever and leukocytosis TECHNIQUE: Frontal and lateral views of the chest are obtained. FINDINGS: The heart size is normal. The pulmonary vasculature is normal. The lungs are clear. Some mild scarring stable is at the apices. IMPRESSION: 1. No suspicious acute pulmonary process.
[2018-02-28] MEDS ORDERED: ONDANSETRON 4 MG/2 ML VIAL IVP STA (15:23)
[2018-02-28] MEDS: AZITHROMYCIN 500 MG in SODIUM CHLORIDE 0.9% 250 ML IVPB SCH (15:28)
[2018-02-28] MEDS: cefTRIAXone IN SWFI 1,000 MG/10 ML SYRINGE IVP SCH (15:28)
--- NOTE | 2018-02-28 19:33 | P.PN ---
Subjective This is a pleasant 72 years old female with past medical history of hyperlipidemia, TIA on aspirin, fall about 4 months ago. She presents because of left sided weakness. As per patient 2 days ago she felt numbness in her left leg which results, next morning she woke up with weakness in her left leg and left upper extremity with the legs more than arm. Patient denies headache. No slurred speech no difficulty in swallowing. No blurred vision. Patient denies chest pain, no dyspnea. No change in urine or bowel habits. No fever In the ED, a shunt has high WBC at 12.5 K, rest of CBC was unremarkable. INR 1.0. BMP was unremarkable a sodium 141, potassium 4.5, creatinine 0.9. Troponin less than 0.012. Patient has negative CT of the brain. Chest x-ray shows COPD. CTA of the neck shows no significant hemodynamic stenosis. There is MRI of the brain which shows acute right sided. Ventricular infarct as well as evolving acute left infarct in the centrum semiovale and the white matter. Chronic small vessel ischemic changes Subjective 02/27/2018 Patient feels better today, she couldn't move her left arm and leg more freely and she can hold her up and straight which she couldn't do yesterday. Patient might go for a KEYA tomorrow 02/28/2018 pt feels genearlly weak, she had fever last night, and her wbc is trending up from 12K to 18 K , pt complains from coughing with scant yellow phelgm and sore throat, on exam she has pharyngitis with suspected purulent discharge on the right tonsil, that is started today as per pt. we will hold her discharge to rehab today and order sepsis work up , with UA , chest xray and BC, and strept culture and rapid strept test, pt was started on ceftriaxone and zithromax Objective - Vital Signs Vital signs: Vital Signs Temp 98.4 F 02/28/18 11:13 Pulse 79 02/28/18 10:00 Resp 18 02/28/18 11:13 BP 99/57 02/28/18 11:13 Pulse Ox 93 L 02/28/18 11:13 Intake & Output 02/28/18 02/28/18 03/01/18 06:59 18:59 06:59 Intake Total 30 180 Output Total 1750 Balance 30 -1570 Weight 64.7 kg Intake: IV 30 0.9 30 Oral 180 Output: Urine 1750 Other: Voiding Method Toilet # Voids 1 - Exam GENERAL: The patient is alert and oriented x3, not in any acute distress. Well developed, well nourished. HEENT: Pupils are round and equally reacting to light. EOMI. No scleral icterus. No conjunctival pallor. Normocephalic, atraumatic. No pharyngeal erythema. No thyromegaly. -pharyngitis and . no tonsilar enlarged , suspected discharge on the right tosnil but is not clear, CARDIOVASCULAR: S1 and S2 present. No murmurs, rubs, or gallops. PULMONARY: Chest is clear to auscultation, no wheezing or crackles. ABDOMEN: Soft, nontender, nondistended, normoactive bowel sounds. No palpable organomegaly. MUSCULOSKELETAL: No joint swelling or deformity. EXTREMITIES: No cyanosis, clubbing, or pedal edema. - mild weakness of her left forearm, and more significant weakness of her left leg , both improving NEUROLOGICAL: Gross neurological examination did not reveal any focal deficits. SKIN: No rashes. - Labs CBC & Chem 7: 02/28/18 06:07 02/28/18 06:07 Labs: Abnormal Lab Results - Last 24 Hours (Table) 02/28/18 02/28/18 Range/Units 06:07 06:07 WBC 18.9 H (3.8-10.6) k/uL RDW 15.8 H (11.5-15.5) % Neutrophils # 16.8 H (1.3-7.7) k/uL BUN 25 H (7-17) mg/dL Creatinine 1.21 H (0.52-1.04) mg/dL Glucose 126 H (74-99) mg/dL Assessment and Plan Assessment: Bilateral acute infarct on MRI of the brain on 02/26/2018 Hyperlipidemia possible sepsis with leukocytosis and fever possible pharyngitis vs Lower airway disease Plan: This is a pleasant 72 years old female who presents with signs symptoms of acute stroke. Continue same treatment. Continue symptomatic treatment. Neurological evaluation is appreciated. Patient is already on aspirin and statin. We'll add Plavix. Echo: Pending. As for physical therapy evaluation. GI and DVT prophylaxis. start antibiotic, cxr and other work up is done. Further recommendation the clinical course DVT prophylaxis subcutaneous heparin GI prophylaxis Pepcid PT/OT:Pending Prognosis is guarded
[2018-02-28] MEDS ORDERED: NON-FORMULARY DRUG (Aspirin Ec 81 MG) PO SCH (21:00)
[2018-02-28] MEDS: ATORVASTATIN 80 MG TAB PO SCH (21:49)
[2018-02-28 21:53] LABS: Appearance,Urine Cloudy (Clear); Bacteria,Urine Few /hpf; Bilirubin,Urine Negative (Negative); Blood,Urine Large (Negative); Color,Urine Yellow; Glucose,Urine (UA) Negative (Negative); Hyaline Casts,Urine 4 /lpf (0-2); Ketones,Urine Negative (Negative); Leukocyte Esterase,Urine Moderate (Negative); Mucus,Urine Rare /hpf; Nitrite,Urine Negative (Negative); PH, Urine 5.5 (5.0-8.0); Protein,Urine 1+ (Negative); RBC,Urine 39 /hpf (0-5); Specific Gravity,Urine 1.022 (1.001-1.035); Squamous Epithelial Cell,Urine 2 /hpf (0-4); Urobilinogen,Urine <2.0 mg/dL (<2.0); WBC,Urine 21 /hpf (0-5)
[2018-03-01 06:21] LABS: Anisocytosis Slight; Basophils % (A) 0 %; Eosinophils % (A) 0 %; HCT 46.5 % (34.0-46.0); HGB 14.9 gm/dL (11.4-16.0); Lymphocytes # (A) 0.9 k/uL (1.0-4.8); Lymphocytes % (A) 11 %; MCH 28.4 pg (25.0-35.0); MCHC 32.1 g/dL (31.0-37.0); MCV 88.5 fL (80.0-100.0); Mean Platelet Volume 6.6; Monocytes # (A) 0.4 k/uL (0-1.0); Monocytes % (A) 5 %; Neutrophils % (A) 83 %; Platelet Count 234 k/uL (150-450); RBC 5.25 m/uL (3.80-5.40); RDW 16.1 % (11.5-15.5); WBC 8.4 k/uL (3.8-10.6)
[2018-03-01 06:38] LABS: Potassium 4.8 mmol/L (3.5-5.1)
[2018-03-01] MEDS: HEPARIN SODIUM,PORCINE 5,000 UNIT/ML 1 ML VIAL SQ SCH ×2 (08:22→20:21)
[2018-03-01] MEDS: cefTRIAXone IN SWFI 1,000 MG/10 ML SYRINGE IVP SCH (08:22)
[2018-03-01] MEDS: CLOPIDOGREL 75 MG TAB PO SCH (08:22)
[2018-03-01] MEDS: FAMOTIDINE 20 MG TAB PO SCH ×2 (08:22→20:21)
[2018-03-01] MEDS: AZITHROMYCIN 500 MG in SODIUM CHLORIDE 0.9% 250 ML IVPB SCH (08:34)
[2018-03-01] MEDS: ASPIRIN 81 MG PO SCH (08:37)
[2018-03-01] MEDS ORDERED: ASPIRIN 325 MG TAB PO SCH (09:00)
[2018-03-01] MEDS: ATORVASTATIN 80 MG TAB PO SCH (20:21)
--- NOTE | 2018-03-01 22:59 | P.PN ---
Subjective This is a pleasant 72 years old female with past medical history of hyperlipidemia, TIA on aspirin, fall about 4 months ago. She presents because of left sided weakness. As per patient 2 days ago she felt numbness in her left leg which results, next morning she woke up with weakness in her left leg and left upper extremity with the legs more than arm. Patient denies headache. No slurred speech no difficulty in swallowing. No blurred vision. Patient denies chest pain, no dyspnea. No change in urine or bowel habits. No fever In the ED, a shunt has high WBC at 12.5 K, rest of CBC was unremarkable. INR 1.0. BMP was unremarkable a sodium 141, potassium 4.5, creatinine 0.9. Troponin less than 0.012. Patient has negative CT of the brain. Chest x-ray shows COPD. CTA of the neck shows no significant hemodynamic stenosis. There is MRI of the brain which shows acute right sided. Ventricular infarct as well as evolving acute left infarct in the centrum semiovale and the white matter. Chronic small vessel ischemic changes Subjective 02/27/2018 Patient feels better today, she couldn't move her left arm and leg more freely and she can hold her up and straight which she couldn't do yesterday. Patient might go for a KEYA tomorrow 02/28/2018 pt feels genearlly weak, she had fever last night, and her wbc is trending up from 12K to 18 K , pt complains from coughing with scant yellow phelgm and sore throat, on exam she has pharyngitis with suspected purulent discharge on the right tonsil, that is started today as per pt. we will hold her discharge to rehab today and order sepsis work up , with UA , chest xray and BC, and strept culture and rapid strept test, pt was started on ceftriaxone and zithromax 03/01/18 Patient strength is improving, she is moving her left lower extremity better than yesterday. Patient still have fever today but less than yesterday. His echo cytosis is resolved and WBCs back to normal. Her pharyngitis or salt. Most likely the source of her infection is urinary tract infection. Uses Zithromax. Continue with ceftriaxone. Send for urine culture. If patient continued to improve then discharge planning in 24-48 hours Objective - Vital Signs Vital signs: Vital Signs Temp 97.9 F 08/16/18 19:51 Pulse 84 03/01/18 19:51 Resp 16 03/01/18 19:51 BP 139/82 03/01/18 19:51 Pulse Ox 94 L 03/01/18 19:51 Intake & Output 03/01/18 03/01/18 03/02/18 06:59 18:59 06:59 Intake Total 20 970 20 Output Total 400 Balance -380 970 20 Weight 64.3 kg 64.3 kg Intake: IV 20 20 0.9 20 10 Invasive Line 3 10 Intake, IV Titration 250 Amount Azithromycin 500 mg In 250 Sodium Chloride 0.9% 250 ml @ 125 mls/hr IVPB DAILY [facility] Rx#:[id number] Oral 720 Output: Urine 400 Other: # Voids 1 - Exam GENERAL: The patient is alert and oriented x3, not in any acute distress. Well developed, well nourished. HEENT: Pupils are round and equally reacting to light. EOMI. No scleral icterus. No conjunctival pallor. Normocephalic, atraumatic. No pharyngeal erythema. No thyromegaly. -pharyngitis and . no tonsilar enlarged , suspected discharge on the right tosnil but is not clear, CARDIOVASCULAR: S1 and S2 present. No murmurs, rubs, or gallops. PULMONARY: Chest is clear to auscultation, no wheezing or crackles. ABDOMEN: Soft, nontender, nondistended, normoactive bowel sounds. No palpable organomegaly. MUSCULOSKELETAL: No joint swelling or deformity. EXTREMITIES: No cyanosis, clubbing, or pedal edema. - mild weakness of her left forearm, and more significant weakness of her left leg , both improving NEUROLOGICAL: Gross neurological examination did not reveal any focal deficits. SKIN: No rashes. - Labs CBC & Chem 7: 03/01/18 05:37 03/01/18 05:37 Labs: Abnormal Lab Results - Last 24 Hours (Table) 03/01/18 03/01/18 Range/Units 05:37 05:37 Hct 46.5 H (34.0-46.0) % RDW 16.1 H (11.5-15.5) % Lymphocytes # 0.9 L (1.0-4.8) k/uL BUN 23 H (7-17) mg/dL Creatinine 1.09 H (0.52-1.04) mg/dL Glucose 108 H (74-99) mg/dL Microbiology - Last 24 Hours (Table) 02/28/18 14:57 Blood Culture Gram Stain - Preliminary Blood Blood Culture - Preliminary Presumptive Staph aureus 02/28/18 13:56 Urine Culture - Preliminary Urine,Voided 02/28/18 14:57 Blood Culture - Final Blood 02/28/18 16:45 Group A Strep Throat Culture - Preliminary Throat Assessment and Plan Assessment: Bilateral acute infarct on MRI of the brain on 02/26/2018 Hyperlipidemia possible sepsis with leukocytosis and fever possible pharyngitis vs Lower airway disease Plan: This is a pleasant 72 years old female who presents with signs symptoms of acute stroke. Continue same treatment. Continue symptomatic treatment. Neurological evaluation is appreciated. Patient is already on aspirin and statin. We'll add Plavix. Echo: Pending. As for physical therapy evaluation. GI and DVT prophylaxis. start antibiotic, cxr and other work up is done. Further recommendation the clinical course DVT prophylaxis subcutaneous heparin GI prophylaxis Pepcid PT/OT:Pending Prognosis is guarded
[2018-03-02 06:26] LABS: Anisocytosis Slight; Basophils % (A) 0 %; Eosinophils # (A) 0.3 k/uL (0-0.7); Eosinophils % (A) 4 %; HCT 42.7 % (34.0-46.0); Lymphocytes # (A) 2.4 k/uL (1.0-4.8); Lymphocytes % (A) 27 %; MCH 28.7 pg (25.0-35.0); MCHC 32.9 g/dL (31.0-37.0); MCV 87.3 fL (80.0-100.0); Mean Platelet Volume 6.9; Monocytes # (A) 0.9 k/uL (0-1.0); Monocytes % (A) 10 %; Neutrophils % (A) 55 %; Platelet Count 233 k/uL (150-450); RBC 4.89 m/uL (3.80-5.40); RDW 16.3 % (11.5-15.5); WBC 9.1 k/uL (3.8-10.6)
[2018-03-02 06:34] LABS: Calcium 8.9 mg/dL (8.4-10.2); Potassium 4.2 mmol/L (3.5-5.1)
[2018-03-02] MEDS: FAMOTIDINE 20 MG TAB PO SCH (08:52)
[2018-03-02] MEDS: CLOPIDOGREL 75 MG TAB PO SCH (08:52)
[2018-03-02] MEDS: cefTRIAXone IN SWFI 1,000 MG/10 ML SYRINGE IVP SCH (08:53)
[2018-03-02] MEDS: HEPARIN SODIUM,PORCINE 5,000 UNIT/ML 1 ML VIAL SQ SCH (08:53)
[2018-03-02] MEDS: ASPIRIN 81 MG PO SCH (08:53)
[2018-03-02] MEDS ORDERED: AZITHROMYCIN 500 MG TAB PO SCH (09:00)
[2018-03-02] MEDS ORDERED: VANCOMYCIN IV PER PHARMACY 1 EACH MISC MISCELLANE PRN (13:23)
[2018-03-02] MEDS ORDERED: VANCOMYCIN 1,500 MG in SODIUM CHLORIDE 0.9% 250 ML IVPB ONE (14:00)
[2018-03-02 15:35] VITALS: BP 140/77; PULSE 78; RESP 18; TEMP 97
--- NOTE | 2018-03-02 16:54 | P.DS ---
Providers Date of admission: 02/25/18 11:46 Attending physician: Ramon Upton MD Consults: 02/25/18 11:46 Consult Physician Routine Consulting Provider: Clarita Tomlin Consult Reason/Comments: CVA Do you want consulting provider notified?: Yes 02/26/18 15:27 Consult Physician Routine Consulting Provider: Tolu Franklin Consult Reason/Comments: bilateral stroke, coagulopathy Do you want consulting provider notified?: Yes 03/02/18 13:15 Consult Physician Routine Consulting Provider: Thomas Morgan Consult Reason/Comments: staph in blood culture Do you want consulting provider notified?: Already Contacted Primary care physician: [facility] Course: This is a pleasant 72 years old female with past medical history of hyperlipidemia, TIA on aspirin, fall about 4 months ago. She presents because of left sided weakness. As per patient 2 days ago she felt numbness in her left leg which results, next morning she woke up with weakness in her left leg and left upper extremity with the legs more than arm. Patient denies headache. No slurred speech no difficulty in swallowing. No blurred vision. Patient denies chest pain, no dyspnea. No change in urine or bowel habits. No fever In the ED, a shunt has high WBC at 12.5 K, rest of CBC was unremarkable. INR 1.0. BMP was unremarkable a sodium 141, potassium 4.5, creatinine 0.9. Troponin less than 0.012. Patient has negative CT of the brain. Chest x-ray shows COPD. CTA of the neck shows no significant hemodynamic stenosis. There is MRI of the brain which shows acute right sided. Ventricular infarct as well as evolving acute left infarct in the centrum semiovale and the white matter. Chronic small vessel ischemic changes Patient had MRI of the brain which shows bilateral infarction. However patient showed partial progressive improvement and she can move her left lower extremity better than before. However patient's on the day of discharge developed leukocytosis and fever. Patient was started on antibiotics with ceftriaxone and Zithromax , further workup there was suspicious UTI, with abnormal urine analysis. However patient doesn't have fever in the last 24 hours. Her leukocytosis is normal again over the last 2 days. Patient is improving and clinically she feels getting her strength. However blood culture temperature positive for staph aureus. ID consult is obtained. Under input is appreciated. Patient was started on vancomycin. Risks of nephrotoxic stent with vancomycin is explained to the patient and has begun both sides and both agree with continue with the same treatment, For suspected MRSA. Case discussed with infectious disease and both agreed that she is stable to be transferred to [facility] for rehab, physical and occupational therapy and continue with IV vancomycin and with medicine and infectious disease will be on the consult GENERAL: The patient is alert and oriented x3, not in any acute distress. Well developed, well nourished. HEENT: Pupils are round and equally reacting to light. EOMI. No scleral icterus. No conjunctival pallor. Normocephalic, atraumatic. No pharyngeal erythema. No thyromegaly. -pharyngitis and . no tonsilar enlarged , suspected discharge on the right tosnil but is not clear, CARDIOVASCULAR: S1 and S2 present. No murmurs, rubs, or gallops. PULMONARY: Chest is clear to auscultation, no wheezing or crackles. ABDOMEN: Soft, nontender, nondistended, normoactive bowel sounds. No palpable organomegaly. MUSCULOSKELETAL: No joint swelling or deformity. EXTREMITIES: No cyanosis, clubbing, or pedal edema. - mild weakness of her left forearm, and more significant weakness of her left leg , both improving NEUROLOGICAL: Gross neurological examination did not reveal any focal deficits. SKIN: No rashes. Time spent more than 35 minutes Patient Condition at Discharge: Good Plan - Discharge Summary Discharge Rx Participant: No New Discharge Prescriptions: No Action Aspirin EC [Ecotrin Low Dose] 81 mg PO HS Atorvastatin [Lipitor] 80 mg PO HS Discharge Medication List Aspirin EC [Ecotrin Low Dose] 81 mg PO HS 02/25/18 [History] Atorvastatin [Lipitor] 80 mg PO HS 02/25/18 [History] Follow up Appointment(s)/Referral(s): Antoni Short MD [STAFF PHYSICIAN] - 4 Weeks (Office to call with follow up appointment.) Cindy Tomlin MD [STAFF PHYSICIAN] - 1 Week (Office will call with follow up appointment.) [facility], [NON-STAFF] - As Needed Therese Omer MD [Primary Care Provider] - 03/08/18 12:00 pm () Patient Instructions/Handouts: Urinary Tract Infection in Women (DC), Stroke ( DC) Activity/Diet/Wound Care/Special Instructions: Cancel Kan appointment if pt goes to inpatient rehab.
--- NOTE | 2018-03-02 20:28 | CONS ---
CONSULTATION DATE OF SERVICE: 03/02/2018. REASON FOR CONSULTATION: Positive blood culture with Staph aureus. HISTORY OF PRESENT ILLNESS: The patient is a 72-year-old female who presented to the [facility] on 02/25/2018 with chief complaints of the leg weakness and the patient started having weakness on the left side of her body both in the and the leg that started at night about 8 pm. The patient said she was unable to get out of the car and she needed assistance from her . She went to bed and woke up this morning and did have difficulty walking and weakness in the left arm and left leg. The patient denies having any headache. The patient denies having any difficulty swallowing. No weakness on the right side of the body. No back pain. With these symptoms, the patient was evaluated by the ER physician. The patient did have a brain CT which shows no acute intracranial abnormality, old lacunar infarct in both basal ganglia and degenerative changes. The patient did have an angiographic CT performed, which shows minimal calcification on the carotid bulb without hemodynamically significant stenosis on either side. Normal MRI of the [place] the [place]. The patient subsequently has been admitted to the hospital for workup of the CVA. The patient did have an MRI of the brain completed on February 26, which did show evolving acute right- sided periventricular infarct at the level of yun radiata, frontal parietal junction suggestive of evolving acute lacunar infarct left centrum semiovale at the level of deep white matter with white matter changes, progression from the prior MRI is noted. The patient did have an echocardiogram followed by [facility] that did not show any septal defect and did not show any thrombus or vegetation. The patient who was afebrile on admission did spike a fever of 101.9 degrees Fahrenheit on 02/28/2018 for which the patient did have a workup done including a UA that was positive with moderate leukocyte esterase, 21 WBC. Patient did not have a Jasmine catheter during this admission. She did also have group strep rapid, which was negative. The patient did have blood culture drawn which are coming back positive today for a presumptive Staph aureus that prompted this infectious disease consultation. The urine cultures on February 28 reported to be negative at this point. However, the cultures done on the are currently pending. The patient weakness to the left side of the body seemed to have been improving. The patient currently denies having any headache. No URI symptoms. No chest pain or shortness of breath or cough. No abdominal pain and no diarrhea. REVIEW OF SYSTEMS: Constitutional: Positive for weakness and a fever that seemed to have resolved. Eyes: No complaint. ENT no complaint. Respiratory: No complaint. Cardiovascular: No complaint. GENITOURINARY: As per HPI. Gastrointestinal: No complaint. Musculoskeletal no complaint. Integumentary: No complaint. Psychological: No complaint. Endocrine no complaint. Neurological as per HPI. PAST MEDICAL HISTORY: Significant for hyperlipidemia, CVA and TIA. PAST SURGICAL HISTORY: Bilateral cataract removal. SOCIAL HISTORY: Positive for current everyday smoker. No drinking or drug use. FAMILY HISTORY: No pertinent findings noticed. ALLERGIES: No known drug allergies. MEDICATION: Medications include the patient is currently on Tylenol, aspirin, Lipitor, Rocephin, Plavix, Pepcid, heparin. EXAMINATION: Blood pressure is 140/77 with a pulse of 78, temperature 97, she is 93% on room air. General description is an elderly female, lying in bed in no distress. No tachypnea or accessory muscle of respiration use. HEENT: Shows no pallor or scleral icterus. Oral mucosa membranes are dry. No significant pharyngeal erythema or thrush. Neck trachea central. No thyromegaly. Lungs unlabored breathing. Clear to auscultation anteriorly. No wheeze or crackles. Heart S1, S2. Regular rate and rhythm. No murmur. ABDOMEN: Soft, no tenderness. No guarding. No rigidity. EXTREMITIES: No edema of the feet. Skin examination: No rash or mass palpable. Neurological: Patient is awake, alert, oriented x3. Mood and affect normal. LABS: Hemoglobin is 14, white count 9.1. He did have elevated white count 18.9 on the 15th, BUN of 23, creatinine 1.03. Electrolytes has been normal. Urine was positive on 02/28 with large blood, moderate leukocyte esterases, 21 WBC. Cultures currently pending. Blood culture with Staph aureus. The patient did have chest x-ray negative for pneumonia. KEYA was negative for any vegetation. MRI of the brain was more of an evolving stroke. DIAGNOSTIC IMPRESSION AND PLAN: Patient with an episode of sepsis on 02/28/2018 in a patient who did have a fever of 101 degrees Fahrenheit. The patient did have elevated white count with significantly positive UA likely to be the source of this infection now with Staph aureus bacteremia. The patient currently with no other clinical focus of this positive blood culture with no inflammation at the IV sites. The patient did not have any clinical findings on lung examination. Chest x-ray report negative for pneumonia. KEYA was negative for any vegetation. No joint swelling. PLAN: 1. Blood cultures will be repeated to document clearance of bacteremia. 2. Vancomycin pharmacy to dose, target of 15 while waiting for the final ID sensitive to this pathogen. 3. Check an ultrasound of the kidney and bladder area. 4. Depending on clinical response as well as cultures, we will adjust her medications further if needed. 5. Plan of care discussed in detail with the admitting physician. If the patient ends up going to the [facility] rehab, she will be followed there closely. Continue supportive care. MOSES / DAQUAN: [id number] /
[2018-03-03] MEDS ORDERED: VANCOMYCIN 1,250 MG in SODIUM CHLORIDE 0.9% 250 ML IVPB SCH (06:00)
--- NOTE | 2018-03-05 14:50 | CDI ---
Last Revision, June 2017 Documentation Clarification Form Date: 03/05/18 From: Chikis Gomez Phone: If you have a question regarding this query, please contact Keyla Frank at [phone] between 8am and 5pm. Admit Date: 02/25/2018 11:46:00 AM Patient Name: Ludivina Davenport Visit Number: [id number] Discharge Date: 03/02/18 ATTENTION: The Clinical Documentation Specialists (CDI) and [facility] Coding Staff appreciate your assistance in clarifying documentation. Please respond to the clarification below the line at the bottom and electronically sign. The CDI & [facility] Coding staff will review the response and follow-up if needed. Please note: Queries are made part of the Legal Health Record. If you have any questions, please contact the author of this message via ITS. Ramon Calhoun MD Sepsis is documented in Dr. Morgan's consult. Your 02/28 and 03/01 progress notes documented "possible sepsis" However, you did not document sepsis or possible sepsis in your discharge summary. History/Risk Factors: Patient was admitted for CVA with left weakness. During the stay the patient developed a UTI with a culture of MRSA Clinical Indicators: Leukocytosis and fever WBC/Left Shift: 02/28: 18.9/16.8 Blood cultures: Staph aureus. Vital signs on 02/28: T. 101.9, P. 107, R. 16, BP 129/70 with one episode of 99 /57 ID Consult: Dr. Morgan documented "patient with an episode of sepsis on 2017 in a patient who did have a fever of 101 degrees Fahrenheit. The patient did have elevated white count with significantly positive UA likely to be the source of ithis infection now with Staph aureus bacteremia." Antibiotics: IV Zithromax, IV Rocephin, IV Vancomycin In your professional opinion, please clarify if these findings signify one of the following conditions: Sepsis ruled out Sepsis confirmed Sepsis possible Septic Shock Other, please specify Unable to determine SIR with fever and leukocytosis septicemia with positive blood culture for staph, mostly secondary to UTI MTDD
== END 2018-03-02 17:32 | DRG 64 ==
LOC: EC 09:34 → 6SEL 11:46
PROVIDERS: ADMIT Internal Medicine; ATTEND Internal Medicine
PROC: B24BZZ4 Ultrasonography of Heart with Aorta, Transesophageal (ICD-10-PCS; principal; 2018-02-28 09:25)
DX: I63.8 Other cerebral infarction (principal); A41.01 Sepsis due to Methicillin susceptible Staphylococcus aureus; N39.0 Urinary tract infection, site not specified; G81.94 Hemiplegia, unspecified affecting left nondominant side; E78.5 Hyperlipidemia, unspecified; F17.210 Nicotine dependence, cigarettes, uncomplicated; I44.4 Left anterior fascicular block; J44.9 Chronic obstructive pulmonary disease, unspecified; J02.9 Acute pharyngitis, unspecified; E78.00 Pure hypercholesterolemia, unspecified; R29.703 NIHSS score 3; Z79.82 Long term (current) use of aspirin; Z79.899 Other long term (current) drug therapy; Z86.73 Personal history of transient ischemic attack (TIA), and cerebral infarction without residual deficits; Z98.42 Cataract extraction status, left eye; Z98.41 Cataract extraction status, right eye; Z96.1 Presence of intraocular lens
CPT/HCPCS: 36415; 70450; 70496; 70498; 70551; 71045; 71046; 80048; 80053; 80061; 81001; 82550; 82553; 84484; 85025; 85610; 85730; 87040; 87077; 87081; 87086; 87186; 87430; 93005; 93306; 93312; 93320; 93325; 96361; 96374; 99285

== ENCOUNTER → 2018-03-21 | Outpatient (CLI) | payer MEDICARE | END | disposition home or self-care (01) | LOC: LABWHC1 10:59 | PROVIDERS: ATTEND Internal Medicine Infectious Disease | DX: A49.01 Methicillin susceptible Staphylococcus aureus infection, unspecified site (principal) | CPT/HCPCS: 36415; 87040 ==

== ENCOUNTER → 2018-04-13 | Outpatient (CLI) | payer MEDICARE ==
--- NOTE | 2018-04-16 13:18 | MM ---
Reason for exam: screening (asymptomatic). Last mammogram was performed 1 year and 2 months ago. History: Patient is postmenopausal. Benign stereotactic core biopsy of the right breast, December 14, 1999. Core biopsy of the right breast. Physical Findings: A clinical breast exam by your physician is recommended on an annual basis and results should be correlated with mammographic findings. MG 3D Screening Mammo W/Cad Bilateral CC and MLO view(s) were taken. Prior study comparison: February 20, 2017, bilateral MG 3d screening mammo w/cad. December 24, 2014, bilateral MG screening mammo w CAD. No significant changes when compared with prior studies. ASSESSMENT: Benign, BI-RAD 2 RECOMMENDATION: Routine screening mammogram of both breasts in 1 year.
== END | disposition home or self-care (01) ==
LOC: RADMAMWWP 13:24
PROVIDERS: ATTEND Internal Medicine
DX: Z12.31 Encounter for screening mammogram for malignant neoplasm of breast (principal)
CPT/HCPCS: 77063; 77067

== ENCOUNTER 2018-11-14 01:29 | Inpatient (IN) | payer MEDICARE ==
--- NOTE | 2018-11-14 01:57 | XR ---
EXAM: XR Chest, 1 View CLINICAL HISTORY: ITS.REASON XR Reason: altered mental status TECHNIQUE: Frontal view of the chest. COMPARISON: 02/28/18 chest x-ray IMPRESSION: Normal heart size. No consolidation or pleural effusion. Stable scarring.
--- NOTE | 2018-11-14 02:11 | ED ---
Neuro HPI - General Chief Complaint: Neuro Symptoms/Deficit Stated Complaint: Neuro Deficits Time Seen by Provider: 11/14/18 01:36 Source: patient, family Mode of arrival: ambulatory Limitations: physical limitation - History of Present Illness Is the patient presenting with stroke symptoms?: Yes Last Known Well Date: 11/14/18 Last Known Well Time: 00:10 Onset/Timin -: hour(s) Initial Comments: This patient is a 73-year-old woman who shortly after midnight noticed that she is feeling numbness to the right side of her body, mainly in the right leg but also somewhat in the right arm. She states that she also then noted that it was difficult for walking. She states that it felt like her right leg was somewhat heavier than usual. Patient states that she also has a little bit of left leg heaviness but that this was something she had had since a previous stroke. Patient denies headache. Location: right arm, right leg History of same: No Place: home Severity: moderate Quality: weak, numb Improves With: none Worsens With: none On Anticoagulants: No Context: sudden onset Associated Symptoms: denies other symptoms Treatments Prior to Arrival: none - Related Data Home Medications: Home Medications Medication Instructions Recorded Confirmed Aspirin EC [Ecotrin Low Dose] 81 mg PO HS 02/25/18 11/14/18 Atorvastatin [Lipitor] 80 mg PO HS 02/25/18 11/14/18 Atenolol [Tenormin] 25 mg PO BID 11/14/18 11/14/18 Previous Rx's Medication Instructions Recorded Clopidogrel [Plavix] 75 mg PO DAILY tab 03/02/18 Allergies/Adverse Reactions: Allergies Allergy/AdvReac Type Severity Reaction Status Date / Time No Known Allergies Allergy Verified 11/14/18 07:40 Review of Systems ROS Statement: Those systems with pertinent positive or pertinent negative responses have been documented in the HPI. ROS Other: All systems not noted in ROS Statement are negative. Constitutional: Denies: fever, chills Eyes: Denies: vision change ENT: Denies: hearing loss Respiratory: Denies: cough, dyspnea Cardiovascular: Denies: chest pain, palpitations, orthopnea, edema, syncope Gastrointestinal: Denies: abdominal pain, vomiting, diarrhea Genitourinary: Denies: dysuria, hematuria Musculoskeletal: Denies: back pain Skin: Denies: rash Neurological: Reports: as per HPI, weakness, numbness. Denies: headache Hematological/Lymphatic: Denies: easy bleeding General Exam Limitations: physical limitation General appearance: alert, in no apparent distress Head exam: Present: atraumatic, normocephalic Eye exam: Present: normal appearance. Absent: scleral icterus, conjunctival i njection ENT exam: Present: normal oropharynx Neck exam: Present: normal inspection, full ROM Respiratory exam: Present: normal lung sounds bilaterally. Absent: respiratory distress, wheezes, rales, rhonchi, stridor Cardiovascular Exam: Present: regular rate, normal rhythm, normal heart sounds. Absent: systolic murmur, diastolic murmur, rubs, gallop GI/Abdominal exam: Present: soft. Absent: distended, tenderness, guarding, rebound, rigid, mass Back exam: Present: normal inspection. Absent: CVA tenderness (R), CVA tenderness (L) Neurological exam: Present: alert, oriented X3 Skin exam: Present: warm, dry, intact, normal color. Absent: rash Stroke MDM - Lab Data Result diagrams: 11/14/18 02:07 11/14/18 02:07 Lab Results 11/14/18 11/14/18 11/14/18 Range/Units 02:07 02:07 02:07 WBC 11.9 H (3.8-10.6) k/uL RBC 4.91 (3.80-5.40) m/uL Hgb 13.8 (11.4-16.0) gm/dL Hct 44.1 (34.0-46.0) % MCV 89.8 (80.0-100.0) fL MCH 28.2 (25.0-35.0) pg MCHC 31.4 (31.0-37.0) g/dL RDW 15.9 H (11.5-15.5) % Plt Count 393 (150-450) k/uL Neutrophils % 67 % Lymphocytes % 20 % Monocytes % 8 % Eosinophils % 3 % Basophils % 0 % Neutrophils # 8.0 H (1.3-7.7) k/uL Lymphocytes # 2.4 (1.0-4.8) k/uL Monocytes # 0.9 (0-1.0) k/uL Eosinophils # 0.3 (0-0.7) k/uL Basophils # 0.1 (0-0.2) k/uL PT 9.9 (9.0-12.0) sec INR 0.9 (<1.2) APTT 23.0 (22.0-30.0) sec Sodium 138 (137-145) mmol/L Potassium 3.8 (3.5-5.1) mmol/L Chloride 106 (98-107) mmol/L Carbon Dioxide 25 (22-30) mmol/L Anion Gap 7 mmol/L BUN 22 H (7-17) mg/dL Creatinine 0.96 (0.52-1.04) mg/dL Est GFR (CKD-EPI)AfAm 68 (>60 ml/min/1.73 sqM) Est GFR (CKD-EPI)NonAf 59 (>60 ml/min/1.73 sqM) Glucose 109 H (74-99) mg/dL POC Glucose (mg/dL) (75-99) mg/dL POC Glu Loss Prevention Guard ID Calcium 9.2 (8.4-10.2) mg/dL Total Bilirubin 0.5 (0.2-1.3) mg/dL AST 28 (14-36) U/L ALT 28 (9-52) U/L Alkaline Phosphatase 103 (38-126) U/L Total Creatine Kinase (30-135) U/L CK-MB (CK-2) (0.0-2.4) ng/mL CK-MB (CK-2) Rel Index Troponin I (0.000-0.034) ng/mL Total Protein 7.5 (6.3-8.2) g/dL Albumin 4.0 (3.5-5.0) g/dL 11/14/18 11/14/18 Range/Units 02:07 02:24 WBC (3.8-10.6) k/uL RBC (3.80-5.40) m/uL Hgb (11.4-16.0) gm/dL Hct (34.0-46.0) % MCV (80.0-100.0) fL MCH (25.0-35.0) pg MCHC (31.0-37.0) g/dL RDW (11.5-15.5) % Plt Count (150-450) k/uL Neutrophils % % Lymphocytes % % Monocytes % % Eosinophils % % Basophils % % Neutrophils # (1.3-7.7) k/uL Lymphocytes # (1.0-4.8) k/uL Monocytes # (0-1.0) k/uL Eosinophils # (0-0.7) k/uL Basophils # (0-0.2) k/uL PT (9.0-12.0) sec INR (<1.2) APTT (22.0-30.0) sec Sodium (137-145) mmol/L Potassium (3.5-5.1) mmol/L Chloride (98-107) mmol/L Carbon Dioxide (22-30) mmol/L Anion Gap mmol/L BUN (7-17) mg/dL Creatinine (0.52-1.04) mg/dL Est GFR (CKD-EPI)AfAm (>60 ml/min/1.73 sqM) Est GFR (CKD-EPI)NonAf (>60 ml/min/1.73 sqM) Glucose (74-99) mg/dL POC Glucose (mg/dL) 109 H (75-99) mg/dL POC Glu Loss Prevention Guard ID Conrad Angela Calcium (8.4-10.2) mg/dL Total Bilirubin (0.2-1.3) mg/dL AST (14-36) U/L ALT (9-52) U/L Alkaline Phosphatase (38-126) U/L Total Creatine Kinase 111 (30-135) U/L CK-MB (CK-2) 2.5 H (0.0-2.4) ng/mL CK-MB (CK-2) Rel Index 2.3 Troponin I <0.012 (0.000-0.034) ng/mL Total Protein (6.3-8.2) g/dL Albumin (3.5-5.0) g/dL - EKG Data -: EKG Interpreted by Me EKG shows normal: sinus rhythm, axis (Normal), intervals (Normal), QRS complexes (Normal), ST-T waves (Normal) Rate: normal (Rate 73 bpm) Interpretation: normal EKG Past Medical History Past Medical History: CVA/TIA, Hyperlipidemia History of Any Multi-Drug Resistant Organisms: MRSA Date of last positivie culture/infection: 03/01/18 MDRO Source:: urine Additional Past Surgical History / Comment(s): bilateral cataract removed OctNovember 2017 Past Anesthesia/Blood Transfusion Reactions: No Reported Reaction Past Psychological History: No Psychological Hx Reported Smoking Status: Current every day smoker Past Alcohol Use History: None Reported Past Drug Use History: None Reported Course Vital Signs 11/14/18 11/14/18 11/14/18 01:37 02:00 02:15 Temperature 97.7 F Pulse Rate 81 70 71 Respiratory 18 16 16 Rate Blood Pressure 188/91 175/88 170/87 Blood Pressure [Left Arm Sitting] O2 Sat by Pulse 96 100 100 Oximetry 11/14/18 11/14/18 11/14/18 02:30 02:45 03:15 Temperature Pulse Rate 77 76 71 Respiratory 16 18 16 Rate Blood Pressure 168/86 168/78 167/90 Blood Pressure [Left Arm Sitting] O2 Sat by Pulse 100 100 100 Oximetry 11/14/18 04:41 Temperature Pulse Rate Respiratory 20 Rate Blood Pressure Blood Pressure 148/100 [Left Arm Sitting] O2 Sat by Pulse 100 Oximetry - Reevaluation(s) Reevaluation #1: 11/14/18 08:12 Patient 73-year-old woman with symptoms suggestive of TIA versus ischemic stroke. She is evaluated and also discussed with the stroke team. The patient has had some improvement. In addition the deficit is very minimal. Patient not felt to be a candidate for TPA as she has had some marked improvement. She will be admitted to have further neurology consultation. Critical Care Time Critical Care Time: Yes (35 minutes) Disposition Clinical Impression: CVA (cerebral vascular accident) Disposition: ADMITTED IP TO THIS [facility] Condition: Fair Is patient prescribed a controlled substance at d/c from ED?: No
[2018-11-14 02:26] LABS: Glucose,Whole Blood 109 mg/dL (75-99)
[2018-11-14 02:30] LABS: Basophils # (A) 0.1 k/uL (0-0.2); Basophils % (A) 0 %; Eosinophils # (A) 0.3 k/uL (0-0.7); Eosinophils % (A) 3 %; HCT 44.1 % (34.0-46.0); HGB 13.8 gm/dL (11.4-16.0); Lymphocytes # (A) 2.4 k/uL (1.0-4.8); Lymphocytes % (A) 20 %; MCH 28.2 pg (25.0-35.0); MCHC 31.4 g/dL (31.0-37.0); MCV 89.8 fL (80.0-100.0); Mean Platelet Volume 7.2; Monocytes # (A) 0.9 k/uL (0-1.0); Monocytes % (A) 8 %; Neutrophils % (A) 67 %; Platelet Count 393 k/uL (150-450); RBC 4.91 m/uL (3.80-5.40); RDW 15.9 % (11.5-15.5); WBC 11.9 k/uL (3.8-10.6)
--- NOTE | 2018-11-14 02:38 | CT ---
EXAM: CT Head Without Intravenous Contrast CLINICAL HISTORY: ITS.REASON CT Reason: Neuro Deficits TECHNIQUE: Axial computed tomography images of the head/brain without intravenous contrast. CTDI is 42 mGy and DLP is 922 mGy-cm. This CT exam was performed using one or more of the following dose reduction techniques: automated exposure control, adjustment of the mA and/or kV according to patient size, and/or use of iterative reconstruction technique. COMPARISON: 02/25/18 CT head FINDINGS: Brain: No hemorrhage, large hypodensity, or mass effect. Chronic microvascular ischemic changes. Ventricles: No hydrocephalus. Age-appropriate cerebral volume loss. Bones/joints: Unremarkable. Soft tissues: Unremarkable. Sinuses: Unremarkable. Mastoid air cells: Clear. IMPRESSION: No acute hemorrhage, hydrocephalus, or mass effect.
[2018-11-14 02:39] LABS: Calcium 9.2 mg/dL (8.4-10.2); Potassium 3.8 mmol/L (3.5-5.1); Total Bilirubin 0.5 mg/dL (0.2-1.3); Total Protein 7.5 g/dL (6.3-8.2)
--- NOTE | 2018-11-14 02:40 | CT ---
EXAM: CT Angiography Head With Intravenous Contrast CLINICAL HISTORY: ITS.REASON CT Reason: Neuro Deficits TECHNIQUE: Axial computed tomographic angiography images of the head with intravenous contrast using CT angiography protocol. CTDI is 28 mGy and DLP is 330 mGy-cm. This CT exam was performed using one or more of the following dose reduction techniques: automated exposure control, adjustment of the mA and/or kV according to patient size, and/or use of iterative reconstruction technique. MIP reconstructed images were created and reviewed. COMPARISON: 02/25/18 FINDINGS: Right internal carotid artery: Intracranial segment is patent with no significant stenosis. No aneurysm. Right anterior cerebral artery: No occlusion or significant stenosis. No aneurysm. Right middle cerebral artery: No occlusion or significant stenosis. No aneurysm. Right posterior cerebral artery: No occlusion or significant stenosis. No aneurysm. Right vertebral artery: Unremarkable. Left internal carotid artery: Intracranial segment is patent with no significant stenosis. No aneurysm. Left anterior cerebral artery: No occlusion or significant stenosis. No aneurysm. Left middle cerebral artery: No occlusion or significant stenosis. No aneurysm. Left posterior cerebral artery: No occlusion or significant stenosis. No aneurysm. Left vertebral artery: Unremarkable. Basilar artery: No occlusion or significant stenosis. No aneurysm. IMPRESSION: No significant stenosis. EXAM: CT Angiography Neck With Intravenous Contrast CLINICAL HISTORY: ITS.REASON CT Reason: Neuro Deficits TECHNIQUE: Axial computed tomographic angiography images of the neck with intravenous contrast using CT angiography protocol. CTDI is 28 mGy and DLP is 330 mGy-cm. This CT exam was performed using one or more of the following dose reduction techniques: automated exposure control, adjustment of the mA and/or kV according to patient size, and/or use of iterative reconstruction technique. MIP reconstructed images were created and reviewed. COMPARISON: 02/25/18 FINDINGS: VASCULATURE: Right common carotid artery: Unremarkable. No significant stenosis. No dissection or occlusion. Right internal carotid artery: Unremarkable. Extracranial segment is patent with no significant stenosis. No dissection or occlusion. Right external carotid artery: Unremarkable. No occlusion. Right vertebral artery: Unremarkable. No significant stenosis. No dissection or occlusion. Left common carotid artery: Unremarkable. No significant stenosis. No dissection or occlusion. Left internal carotid artery: Unremarkable. Extracranial segment is patent with no significant stenosis. No dissection or occlusion. Left external carotid artery: Unremarkable. No occlusion. Left vertebral artery: Unremarkable. No significant stenosis. No dissection or occlusion. NECK: Bones/joints: No acute fracture. No dislocation. Soft tissues: Moderate centrilobular emphysema. No mass. CAROTID STENOSIS REFERENCE USING NASCET CRITERIA: % ICA stenosis = (1 - narrowest ICA diameter/diameter of distal cervical ICA) x 100. Mild - <50% stenosis. Moderate - 50-69% stenosis. Severe - 70-94% stenosis. Near occlusion - 95-99% stenosis. Occluded - 100% stenosis. IMPRESSION: No significant stenosis.
[2018-11-14 02:41] LABS: Creatine Kinase 111 U/L (30-135)
[2018-11-14 02:44] LABS: INR 0.9 (<1.2); Prothrombin Time 9.9 sec (9.0-12.0)
[2018-11-14 02:54] LABS: Creatine Kinase MB 2.5 ng/mL (0.0-2.4); Troponin I <0.012 ng/mL (0.000-0.034)
[2018-11-14] MEDS ORDERED: ASPIRIN 325 MG TAB PO STA (03:41)
[2018-11-14] MEDS ORDERED: ACETAMINOPHEN TAB 325 MG TAB PO PRN (06:00)
[2018-11-14] MEDS: SODIUM CHLORIDE 0.9% 1,000 ML IV SCH ×3 (07:07→23:54)
[2018-11-14] MEDS: CLOPIDOGREL 75 MG TAB PO SCH (08:18)
[2018-11-14] MEDS: FAMOTIDINE 20 MG TAB PO SCH ×2 (08:18→19:46)
[2018-11-14] MEDS: DOCUSATE 100 MG CAP PO SCH ×3 (08:18→23:13)
[2018-11-14] MEDS: ASPIRIN 325 MG TAB PO SCH (08:18)
[2018-11-14 11:51] LABS: Appearance,Urine Clear (Clear); Bacteria,Urine Rare /hpf; Bilirubin,Urine Negative (Negative); Blood,Urine Moderate (Negative); Color,Urine Light Yellow; Glucose,Urine (UA) Negative (Negative); Ketones,Urine Negative (Negative); Leukocyte Esterase,Urine Negative (Negative); Mucus,Urine Rare /hpf; Nitrite,Urine Negative (Negative); PH, Urine 6.5 (5.0-8.0); Protein,Urine Negative (Negative); RBC,Urine 21 /hpf (0-5); Specific Gravity,Urine 1.019 (1.001-1.035); Squamous Epithelial Cell,Urine <1 /hpf (0-4); Urobilinogen,Urine <2.0 mg/dL (<2.0); WBC,Urine 1 /hpf (0-5)
--- NOTE | 2018-11-14 14:06 | P.CNNES ---
History of Present Illness Consult date: 11/14/18 Chief complaint: Stroke vs TIA History of Present Illness: Patient is a 73-year-old left-hand dominant female, who has history of previous TIA and CVA, was watching TV at around midnight, but her right side felt numb and weak. She couldn't get up. Patient states her feet would not move. There was no slurred speech or facial droop or problem with the vision. They arrived to the ER at 1:30 AM. Patient had computed tomography scan of the head, which revealed no acute stroke. Evidence of old strokes involving bilateral caudate, right basal ganglia, as well as significant small vessel white matter disease. Patient also had CTA of head and neck, which was negative. Patient did not receive TPA. Patient states her symptoms have improved, but still weak on the right side. Patient had a CVA in February 2018, when she presented with left hemiparesis and was found to have bilateral ischemic strokes. Patient had transesophageal echocardiogram done at that time, which revealed no embolic source, no PFO or left atrial thrombus. Patient was started on Plavix 75 mg on top of aspirin 81 mg. The patient says that she is compliant with her medications. Patient also had history of TIA 5 years ago with no residual deficits. Patient denies hypertension or diabetes. She has smoked 1-1-1/2 pack per day for 50-60 years, cut back to one pack per week since last stroke about a year ago. Review of Systems Eyes: denies blurred vision, denies loss of peripheral vision Ears: deny: decreased hearing Past Medical History Past Medical History: CVA/TIA, Hyperlipidemia History of Any Multi-Drug Resistant Organisms: MRSA Date of last positivie culture/infection: 03/01/18 MDRO Source:: urine Additional Past Surgical History / Comment(s): bilateral cataract removed November 2017 Past Anesthesia/Blood Transfusion Reactions: No Reported Reaction Past Psychological History: No Psychological Hx Reported Smoking Status: Current every day smoker Past Alcohol Use History: None Reported Past Drug Use History: None Reported Medications and Allergies Home Medications Medication Instructions Recorded Confirmed Type Aspirin EC [Ecotrin Low Dose] 81 mg PO HS 02/25/18 11/14/18 History Atorvastatin [Lipitor] 80 mg PO HS 02/25/18 11/14/18 History Clopidogrel [Plavix] 75 mg PO DAILY tab 03/02/18 11/14/18 Rx Atenolol [Tenormin] 25 mg PO BID 11/14/18 11/14/18 History Allergies Allergy/AdvReac Type Severity Reaction Status Date / Time No Known Allergies Allergy Verified 11/14/18 07:40 Physical Examination - Vital Signs Vital Signs: Vital Signs Temp Pulse Pulse Resp BP BP Pulse Ox 11/14/18 12:21 97.6 F 70 16 167/77 93 L 11/14/18 08:19 98.2 F 78 16 148/81 95 11/14/18 05:44 80 20 143/97 100 11/14/18 05:41 98 F 76 16 146/90 98 11/14/18 04:41 20 148/100 100 11/14/18 03:15 71 16 167/90 100 11/14/18 02:45 76 18 168/78 100 11/14/18 02:30 77 16 168/86 100 11/14/18 02:15 71 16 170/87 100 11/14/18 02:00 70 16 175/88 100 11/14/18 01:37 97.7 F 81 18 188/91 96 Intake and Output 11/13/18 11/14/18 11/14/18 22:59 06:59 14:59 Intake Total 240 Output Total 300 Balance -60 Intake: Oral 240 Output: Urine 300 Other: # Voids 400 1 Weight 73.482 kg On examination patient is an elderly female, in no distress. There is no carotid bruit or murmur, peripheral pulses are present. On neurological examination, patient is alert and awake fully oriented to time place and person. Speech is mildly dysarthric but no aphasia. Attention and concentration and fund of knowledge is adequate. On cranial nerve examination, pupils are round and reactive to light, visual crooks are full on confrontation. Extraocular muscles are intact. Face is symmetric. Tongue protrudes slightly to the right. Shoulder shrug normal. On muscle strength testing patient has mild right pronator drift. The strength is normal in the left arm and left leg. On the right side, her deltoid is 5-, biceps 5, triceps 5, tattoo identifier 4, right hip flexion 4, knee extension 5-ankle dorsiflexion 5-. Reflexes are 1 in the upper and lower limbs and plantar is up on the right whereas withdrawal on the left side. Sensory to touch is equal with no neglect on double simultaneous stimulation. Patient is ataxic on [id number] testing as well as [id number] on the right. Tone and bulk of muscles normal. Gait deferred. 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 * Hypertension * Hyperlipidemia * Tobacco user * Previous history of CVA and TIAs Plan: Patient has presented with ataxic hemiparesis on the right side. Mechanism likely from small vessel disease. Patient currently on aspirin 81 mg, Plavix 75 mg and high-dose statins, compliant with medication. Her major risk factor includes tobacco use and hypertension. Patient had a KEYA performed in February 2018, which was negative for any embolic source. We will check an MRI of the brain to localize CVA. Patient will be continued on aspirin 81 mg and Plavix 75 mg and statins. Suggest permissible hypertension for 24-48 hours due to hyperacute stroke. Will check hemoglobin A1c and fasting a.m. lipid panel. Strongly recommended tobacco cessation. PT OT and speech therapy. DVT prophylaxis.
--- NOTE | 2018-11-14 14:45 | XR ---
EXAMINATION TYPE: XR Hip RT and AP Pelvis DATE OF EXAM: 11/14/2018 COMPARISON: CT abdomen and pelvis May 16, 2017. HISTORY: Chronic pelvic and right hip pain. TECHNIQUE: A single AP view of the pelvis is obtained. Two views of the right hip are obtained. FINDINGS: There is no acute fracture/dislocation evident in the pelvis. The sacroiliac joints appea r symmetric and unremarkable. Mild to moderate axial joint space loss in both hips is redemonstrated, right slightly greater than left. No significant spurring is seen. Bilateral pelvic phleboliths loco in present. Two views of right hip show no acute fracture or dislocation. No focal lytic or sclerotic lesion see n in the proximal right femur. The overlying soft tissue is unremarkable. IMPRESSION: As above.
--- NOTE | 2018-11-14 17:29 | MR ---
EXAMINATION TYPE: MR brain wo con DATE OF EXAM: 11/14/2018 COMPARISON: MRI 02/26/2018 HISTORY: Rt side weakness, CVA TECHNIQUE: Department protocol. Multiplanar, multisequence images were acquired, including diffusion weighted imaging. FINDINGS: There is a thin band of restricted diffusion, measuring approximately 6 mm transverse x 18 mm AP, in the left periventricular yun radiata. This is a new finding, and is compatible with acute/subacute nonhemorrhagic infarction in the vascular territory of the left medial lenticulostriate arteries. Th ere is no other restricted diffusion. The previously seen moderate-marked baseline bilateral yun radiata and centrum semiovale deep whit e matter T2 hyperintensity is redemonstrated, with subtle evidence suggesting possibility of mild int erval progression since the 02/26/2018. The 1 cm ill-defined T2 hyperintense right brachium pontis les ion is similar. The vascular flow void pattern is unremarkable. The remainder of the intra-axial and extra-axial compartment examination is unremarkable. Calvarium a nd orbits are intact. Middle ear cavities and paranasal sinuses and mastoid sinus air cells are clear . IMPRESSION: Prominent bilateral T2 hyperintense yun radiata and centrum semiovale deep white matte r pattern is redemonstrated, within which is evidence of a small thin band of restricted diffusion.
[2018-11-14] MEDS: ATORVASTATIN 80 MG TAB PO SCH (19:46)
[2018-11-14 21:17] LABS: Hemoglobin A1C 5.7 % (4.0-6.0)
--- NOTE | 2018-11-14 22:33 | P.HPIM ---
History of Present Illness H&P Date: 11/14/18 Chief Complaint: Right-sided numbness Patient is a 73-year-old female with a known history of CVA/TIA 5 years ago with balance issues came to ER with the complaints of numbness of the right side of the body, bilateral upper and lower extremities. Patient also having difficulty with walking. Patient says that her symptoms started last night while she was watching TV and suddenly felt numbness over the right side of the body and unable to get up from the couch. Otherwise denied any complaints of headache. No dizziness or lightheadedness. Denied any slurred speech or facial droop. Patient came to ER last night. Patient is out of time for TPA. Currently patient's symptoms have improved especially right leg numbness. Still having some residual numbness. Otherwise denied any complaints of recent illnesses. No chest pain or shortness of breath. No nausea vomiting. No diarrhea. No dysuria or hematuria. CT head was done in the ER showed no acute intracranial process. CT angiogram of the head and neck showed no significant stenosis. Chest x-ray negative EKG showed normal sinus rhythm. Review of Systems Constitutional: Patient denies any fever or chills . No generalized weakness or weight loss. Abdomen: Patient denied nausea vomiting and diarrhea and abdominal pain. Cardiovascular: Patient denies any chest pain or short of breath no palpitations. Respiratory: patient denied any cough is from production. No shortness of breath Neurologic: Patient does have numbness over the right side of the body. No tingling. No headache.. Musculoskeletal: Patient denies any complaints of joint swelling or deformity. Skin: Negative Psychiatric: Negative Endocrine: No heat or cold intolerance. No recent weight gain. Genitourinary: No dysuria or hematuria. All other 14 point ROS negative except the above Past Medical History Past Medical History: CVA/TIA, Hyperlipidemia History of Any Multi-Drug Resistant Organisms: MRSA Date of last positivie culture/infection: 03/01/18 MDRO Source:: urine Additional Past Surgical History / Comment(s): bilateral cataract removed November 2017 Past Anesthesia/Blood Transfusion Reactions: No Reported Reaction Past Psychological History: No Psychological Hx Reported Smoking Status: Current every day smoker Past Alcohol Use History: None Reported Past Drug Use History: None Reported Medications and Allergies Home Medications Medication Instructions Recorded Confirmed Type Aspirin EC [Ecotrin Low Dose] 81 mg PO HS 02/25/18 11/14/18 History Atorvastatin [Lipitor] 80 mg PO HS 02/25/18 11/14/18 History Clopidogrel [Plavix] 75 mg PO DAILY tab 03/02/18 11/14/18 Rx Atenolol [Tenormin] 25 mg PO BID 11/14/18 11/14/18 History Allergies Allergy/AdvReac Type Severity Reaction Status Date / Time No Known Allergies Allergy Verified 11/14/18 07:40 Physical Exam Vitals: Vital Signs Temp Pulse Pulse Resp BP BP Pulse Ox 11/14/18 08:19 98.2 F 78 16 148/81 95 11/14/18 05:44 80 20 143/97 100 11/14/18 05:41 98 F 76 16 146/90 98 11/14/18 04:41 20 148/100 100 11/14/18 03:15 71 16 167/90 100 11/14/18 02:45 76 18 168/78 100 11/14/18 02:30 77 16 168/86 100 11/14/18 02:15 71 16 170/87 100 11/14/18 02:00 70 16 175/88 100 11/14/18 01:37 97.7 F 81 18 188/91 96 Intake and Output 11/13/18 11/14/18 11/14/18 22:59 06:59 14:59 Other: # Voids 400 1 Weight 73.482 kg PHYSICAL EXAMINATION: Patient is lying in the bed comfortably, no acute distress, awake alert and oriented.. HEENT: Normocephalic. Neck is supple. Pupils reactive. Nostrils clear. Oral cavity is moist. Ears reveal no drainage. Neck reveals no JVD, carotid bruits, or thyromegaly. CHEST EXAMINATION: Trachea is central. Symmetrical expansion. Lung crooks clear to auscultation and percussion. CARDIAC: Normal S1, S2 with no gallops. No murmurs ABDOMEN: Soft. Bowel sounds normal. No organomegaly. No abdominal bruits. Extremities: reveal no edema. No clubbing or cyanosis Neurologically awake, alert, oriented x3 with well-coordinated movements. No focal deficits noted Skin: No rash or skin lesions. Psychiatric: Coperative. Nonsuicidal Musculoskeletal: No joint swelling or deformity. Normal range of motion. Results CBC & Chem 7: 11/14/18 02:07 11/14/18 02:07 Labs: Abnormal Lab Results - Last 24 Hours (Table) 11/14/18 11/14/18 11/14/18 Range/Units 02:07 02:07 02:07 WBC 11.9 H (3.8-10.6) k/uL RDW 15.9 H (11.5-15.5) % Neutrophils # 8.0 H (1.3-7.7) k/uL BUN 22 H (7-17) mg/dL Glucose 109 H (74-99) mg/dL POC Glucose (mg/dL) (75-99) mg/dL CK-MB (CK-2) 2.5 H (0.0-2.4) ng/mL 11/14/18 Range/Units 02:24 WBC (3.8-10.6) k/uL RDW (11.5-15.5) % Neutrophils # (1.3-7.7) k/uL BUN (7-17) mg/dL Glucose (74-99) mg/dL POC Glucose (mg/dL) 109 H (75-99) mg/dL CK-MB (CK-2) (0.0-2.4) ng/mL Thrombosis Risk Factor Assmnt - DVT/VTE Prophylaxis DVT/VTE Prophylaxis: Pharmacologic Prophylaxis ordered - Choose All That Apply Any of the Below Risk Factors Present?: No Other Risk Factors: Yes Each Risk Factor Represents 2 Points: Age 61-74 years Other congenital or acquired thrombophilia - If yes, enter type in comment: No Thrombosis Risk Factor Assessment Total Risk Factor Score: 2 Thrombosis Risk Factor Assessment Level: Low Risk Assessment and Plan Assessment: Right-sided numbness with difficulty walking likely due to acute CVA Hypertension on admission Previous history of CVA/TIA Hyperlipidemia Nicotine addiction DVT prophylaxis Plan: Patient will be continued on aspirin Plavix and statins. CT head showed no acute process. Neurology was consulted. MRI of the brain will be ordered to rule out acute CVA. We will monitor blood pressure closely and continue to allow permissive hypertension currently. Smoking cessation has been counseled extensively. PTOT consult. Speech and s wallow evaluation. Further recommendations based on the clinical course. Time with Patient: Greater than 30
[2018-11-15 05:07] LABS: Cholesterol 159 mg/dL (<200); HDL Cholesterol 39 mg/dL (40-60); LDL Cholesterol,Calculated 87 mg/dL (0-99); Triglycerides 163 mg/dL (<150)
[2018-11-15 07:48] LABS: Basophils % (A) 0 %; Eosinophils # (A) 0.3 k/uL (0-0.7); Eosinophils % (A) 3 %; HCT 42.3 % (34.0-46.0); HGB 13.7 gm/dL (11.4-16.0); Lymphocytes % (A) 22 %; MCH 29.1 pg (25.0-35.0); MCHC 32.3 g/dL (31.0-37.0); MCV 90.2 fL (80.0-100.0); Mean Platelet Volume 6.6; Monocytes # (A) 0.7 k/uL (0-1.0); Monocytes % (A) 8 %; Neutrophils # (A) 5.8 k/uL (1.3-7.7); Neutrophils % (A) 65 %; Platelet Count 333 k/uL (150-450); RBC 4.69 m/uL (3.80-5.40); RDW 15.8 % (11.5-15.5)
[2018-11-15] MEDS: DOCUSATE 100 MG CAP PO SCH ×3 (07:58→23:22)
[2018-11-15] MEDS: FAMOTIDINE 20 MG TAB PO SCH ×2 (07:59→20:32)
[2018-11-15] MEDS: ASPIRIN 325 MG TAB PO SCH (07:59)
[2018-11-15] MEDS: CLOPIDOGREL 75 MG TAB PO SCH (07:59)
[2018-11-15 08:13] LABS: Calcium 8.9 mg/dL (8.4-10.2); Potassium 3.8 mmol/L (3.5-5.1)
--- NOTE | 2018-11-15 09:16 | P.PN ---
Subjective Progress Note Date: 11/15/18 Principal diagnosis: * Acute ischemic CVA, bilateral, subcortical * Hypertension * Hyperlipidemia * Tobacco users Patient was seen for a follow-up. Patient states that her legs still feel heavy, right more than left. Her right arm is also weak, almost like going to sleep, but the left arm is normal. Denies any speech difficulty any headache or visual issues or numbness. MRI of the brain was performed, which revealed evidence of bilateral ischemic strokes in multiple vascular territories. There is acute ischemic stroke in the left periventricular white matter, another one in the genu of the corpus callosum on the left, and a third one, which is probably subacute involving subcortical frontal white matter on the right side. Hemoglobin A1c is normal. LDL is also normal. Patient is on high-dose statins. Objective - Vital Signs Vital signs: Vital Signs Temp 98.6 F 11/15/18 07:52 Pulse 78 11/15/18 08:00 Resp 16 11/15/18 08:00 BP 152/76 11/15/18 07:52 Pulse Ox 96 11/15/18 07:52 Intake & Output 11/14/18 11/15/18 11/15/18 18:59 06:59 18:59 Intake Total 480 2000 240 Output Total 300 Balance 180 2000 240 Weight 74.6 kg Intake: Intake, IV Titration 1100 Amount Sodium Chloride 0.9% 1, 1100 000 ml @ 100 mls/hr IV . Q10H [facility] Rx#:[id number] Oral 480 900 240 Output: Urine 300 Other: Voiding Method Toilet # Voids 2 3 - Exam On examination patient is an elderly female, in no distress. Her mental status, speech and language functions are normal. No aphasia or dysarthria. His admission, pupils are round and reacting to light. Visual crooks are full. Face is symmetric and tongue protrudes in midline. Palatal elevation and sensation is normal. Muscle strength testing, there is right pronator drift. The strength is normal in the left arm and left leg. On the right side, her deltoid is 5-, biceps and triceps are normal. Payroll Consultant is 4. Hip flexion 4, ankle dorsiflexion normal. Sensations are equal. Patient still has ataxia. Pupmds-mo-wrix and nxlt-pm-pisl testing mainly on the right. Tone and bulk of muscles normal. Patient has SCDs in place. - Labs CBC & Chem 7: 11/15/18 07:28 11/15/18 07:28 Labs: Abnormal Lab Results - Last 24 Hours (Table) 11/14/18 11/14/18 11/15/18 Range/Units 02:07 11:10 07:28 RDW 15.8 H (11.5-15.5) % Glucose (74-99) mg/dL Triglycerides 163 H (<150) mg/dL HDL Cholesterol 39 L (40-60) mg/dL Urine Blood Moderate H (Negative) Urine RBC 21 H (0-5) /hpf Urine Bacteria Rare H (None) /hpf Urine Mucus Rare H (None) /hpf 11/15/18 Range/Units 07:28 RDW (11.5-15.5) % Glucose 101 H (74-99) mg/dL Triglycerides (<150) mg/dL HDL Cholesterol (40-60) mg/dL Urine Blood (Negative) Urine RBC (0-5) /hpf Urine Bacteria (None) /hpf Urine Mucus (None) /hpf Assessment and Plan Assessment: * Acute ischemic stroke, bilateral, subcortical. Differential diagnosis is between cardioembolic source, hypercoagulable state or vasculitis. * Hypertension * Hyperlipidemia * Tobacco user Plan: Patient has bilateral ischemic strokes of unclear etiology. Patient is cur rently on dual antiplatelet medications. She is compliant with medication. I would suggest cardiology consultation to rule out cardioembolic source. Patient may need cardiac monitoring to rule out paroxysmal atrial fibrillation. Suggest hematology consultation to rule out hypercoagulable state. If no obvious answers found, then patient may need a cerebral angiogram to rule out ADMINISTRATIVE SERVICES COORDINATOR vasculitis. PT OT Patient was again recommended tobacco cessation.
[2018-11-15] MEDS: SODIUM CHLORIDE 0.9% 1,000 ML IV SCH ×2 (12:01→21:31)
--- NOTE | 2018-11-15 16:13 | P.CONS ---
History of Present Illness - Chief Complaint Gait disturbance - History of Present Illness November 14 with acute onset right-sided numbness. Seen by Dr. his son who notes ataxic right hemiparesthesias. Angiogram CT and head CT negative. Chest x-ray stable scarring. 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 Brain MRI with bilateral lacunar disease yun radiata and centrum semiovale. PT re ports two-person assistance bed mobility. Minimal assistance transfers, gait 150 feet with roller walker. Fatigues. OT reports supervision for upper dressing and minimal assist for lower dressing, bathing, toileting and minimal moderate assistance for toilet transfer. Speech therapy reports MOCA score 27/30. Previous functional history as elicited from patient: 73-year-old left-handed white female who is lives in a first-floor of 2 floor home with her . Both are retired. Patient was independent with cooking, laundry, driving, standing shower and more recently he's not require assistive device for gait. Was using a 4 wheeled walker from recent stroke until July of this year. Infection reports being inpatient rehab at [facility]. History tobacco and denies alcohol. Regular doctors Dr. Omer. Family history of cancer in mother and [place] in father. Review of Systems Review of systems: ENT: Denies sneezes or discharge. Eyes: Denies discharge or photophobia. Cardiac: Denies chest pain or palpitation. Pulmonary: Denies cough or shortness of breath. Breast: Denies discharge or lumps. Gastrointestinal: Denies nausea, emesis, constipation, diarrhea. Genitourinary: Denies discharge or frequency. Musculoskeletal: Denies muscle or bone aches. Neurologic: Mild numbness right side. History of left-sided weakness which may persist, minimally. Endocrine: Denies shakes or sweats. Oncology: Denies cancers. Dermatologic: Denies rash, itching, pruritus. ALLERGY/immunology: Denies sneezes, rashes. Past Medical History Past Medical History: CVA/TIA, Hyperlipidemia History of Any Multi-Drug Resistant Organisms: MRSA Year Discovered:: 03/01/18 MDRO Source:: urine Additional Past Surgical History / Comment(s): bilateral cataract removed November 2017 Past Anesthesia/Blood Transfusion Reactions: No Reported Reaction Past Psychological History: No Psychological Hx Reported Smoking Status: Current every day smoker Past Alcohol Use History: None Reported Past Drug Use History: None Reported Medications and Allergies Home Medications Medication Instructions Recorded Confirmed Type Aspirin EC [Ecotrin Low Dose] 81 mg PO HS 02/25/18 11/14/18 History Atorvastatin [Lipitor] 80 mg PO HS 02/25/18 11/14/18 History Clopidogrel [Plavix] 75 mg PO DAILY tab 03/02/18 11/14/18 Rx Atenolol [Tenormin] 25 mg PO BID 11/14/18 11/14/18 History Allergies Allergy/AdvReac Type Severity Reaction Status Date / Time No Known Allergies Allergy Verified 11/14/18 07:40 Physical Exam Vitals: Vital Signs Temp Pulse Resp BP Pulse Ox 11/15/18 15:28 97.8 F 97 16 143/81 98 11/15/18 11:29 77 11/15/18 11:28 77 18 129/80 97 11/15/18 08:00 78 16 11/15/18 07:52 98.6 F 78 16 152/76 96 11/15/18 04:00 98 F 70 18 150/78 95 11/14/18 23:58 75 19 11/14/18 23:57 98.2 F 75 19 140/99 95 11/14/18 20:00 98 F 79 19 139/87 98 Intake and Output 11/15/18 11/15/18 11/15/18 06:59 14:59 22:59 Intake Total 1600 480 Balance 1600 480 Intake: Intake, IV Titration 1100 Amount Sodium Chloride 0.9% 1, 1100 000 ml @ 100 mls/hr IV . Q10H [facility] Rx#:[id number] Oral 500 480 Other: Voiding Method Toilet # Voids 3 2 # Bowel Movements 1 Weight 74.6 kg Skin: Good color, texture, turgor. General: Medium build and comfortable appearance. Head: Normocephalic, atraumatic. Eyes: Symmetric. Pupils equal round. Ears: Symmetric. Hearing within normal limits. Mouth: Clear. Neck: Supple. Carotid without bruit. Cardiac: Regular rate and rhythm. Lungs: Clear anteriorly and posteriorly. Abdomen: Soft active nontender. Extremities: Normal tone. Neurological: Mental status: Alert, cooperative, pleasant. Cranial nerves: Symmetric facial tone and trapezius. Motor: Normal strength and isolation all 4 limbs. Except right hand 4+/5 and left ankle 5 minus/5. Sensation: Intact throughout. DTRs: Symmetric and equal throughout. Mobility: Sits without assistance or verbal cueing or loss of balance. Results CBC & Chem 7: 11/15/18 07:28 11/15/18 07:28 Labs: Abnormal Lab Results - Last 24 Hours (Table) 11/14/18 11/15/18 11/15/18 Range/Units 02:07 07:28 07:28 RDW 15.8 H (11.5-15.5) % Glucose 101 H (74-99) mg/dL Triglycerides 163 H (<150) mg/dL HDL Cholesterol 39 L (40-60) mg/dL Assessment and Plan (1) CVA (cerebral vascular accident) Current Visit: Yes Status: Acute Code(s): I63.9 - CEREBRAL INFARCTION, UNSPECIFIED SNOMED Code(s): 342416464 Plan: impression: 1. Gait disturbance. 2. Stroke with ataxic right hemiparesthesias, this time. 3. History of previous stroke 2 or 3 with left hemiparesthesias, in fact require an inpatient rehab. 4. Dyslipidemia. Comments and plan: At this time PT, OT, ARBORICULTURE TEACHER ongoing. Patient reports that a cardiac work up as ensuing regard to cardiac cause and to further reduce risk of recurrent stroke or heart attack. This is apparently the priority. We'll follow patient's case but anticipate reviewing case Monday a.m.
[2018-11-15] MEDS: ATORVASTATIN 80 MG TAB PO SCH (20:32)
--- NOTE | 2018-11-16 00:54 | P.PN ---
Subjective Progress Note Date: 11/15/18 Principal diagnosis: Acute CVA Patient is a 73-year-old female with a known history of CVA/TIA 5 years ago with balance issues came to ER with the complaints of numbness of the right side of the body, bilateral upper and lower extremities. Patient also having difficulty with walking. Patient says that her symptoms started last night while she was watching TV and suddenly felt numbness over the right side of the body and unable to get up from the couch. Otherwise denied any complaints of headache. No dizziness or lightheadedness. Denied any slurred speech or facial droop. Patient came to ER last night. Patient is out of time for TPA. Currently patient's symptoms have improved especially right leg numbness. Still having some residual numbness. Otherwise denied any complaints of recent illnesses. No chest pain or shortness of breath. No nausea vomiting. No diarrhea. No dysuria or hematuria. CT head was done in the ER showed no acute intracranial process. CT angiogram of the head and neck showed no significant stenosis. Chest x-ray negative EKG showed normal sinus rhythm. 11/15/2018 Patient is able to sit in chair comfortably. I spent in physical therapy. Still complaining of numbness over the right upper extremity and right leg. Some weakness in the right upper arm.Difficulty. Tolerating oral diet. MRI of the brain showed prominent T2 hyperintense coronary radiata and centrum semiovale deep white matter pattern is redemonstrated. Which is evidence of a small skin band of restricted diffusion. Cardiology was consulted for cardioembolic workup including a ventilator for atrial fibrillation/arrhythmia. Patient denied any complaints of headache or dizziness. No fever no chills. No other acute overnight issues. Neurology is following. Current medications reviewed. Objective - Vital Signs Vital signs: Vital Signs Temp 97.8 F 11/15/18 15:28 Pulse 97 11/15/18 15:28 Resp 16 11/15/18 15:28 BP 143/81 11/15/18 15:28 Pulse Ox 98 11/15/18 15:28 Intake & Output 11/15/18 11/15/18 11/16/18 06:59 18:59 06:59 Intake Total 1999 720 Balance 1999 720 Weight 74.6 kg Intake: Intake, IV Titration 1100 Amount Sodium Chloride 0.9% 1, 1100 000 ml @ 100 mls/hr IV . Q10H [facility] Rx#:[id number] Oral 900 720 Other: Voiding Method Toilet # Voids 3 1 # Bowel Movements 0 - Exam PHYSICAL EXAMINATION: Patient is lying in the bed comfortably, no acute distress, awake alert and oriented.. HEENT: Normocephalic. Neck is supple. Pupils reactive. Nostrils clear. Oral cavity is moist. Ears reveal no drainage. Neck reveals no JVD, carotid bruits, or thyromegaly. CHEST EXAMINATION: Trachea is central. Symmetrical expansion. Lung crooks clear to auscultation and percussion. CARDIAC: Normal S1, S2 with no gallops. No murmurs ABDOMEN: Soft. Bowel sounds normal. No organomegaly. No abdominal bruits. Extremities: reveal no edema. No clubbing or cyanosis Neurologically awake, alert, oriented x3 with well-coordinated movements. No focal deficits noted Skin: No rash or skin lesions. Psychiatric: Coperative. Nonsuicidal Musculoskeletal: No joint swelling or deformity. Normal range of motion. - Labs CBC & Chem 7: 11/15/18 07:28 11/15/18 07:28 Labs: Abnormal Lab Results - Last 24 Hours (Table) 11/14/18 11/15/18 11/15/18 Range/Units 02:07 07:28 07:28 RDW 15.8 H (11.5-15.5) % Glucose 101 H (74-99) mg/dL Triglycerides 163 H (<150) mg/dL HDL Cholesterol 39 L (40-60) mg/dL Assessment and Plan Assessment: Right-sided numbness with difficulty walking due to acute CVA Hypertension on admission Previous history of CVA/TIA Hyperlipidemia Nicotine addiction DVT prophylaxis Plan: Patient will be continued on aspirin Plavix and statins. CT head showed no acute process. MRI of the brain reportedly reviewed. Neurology is following.. Plavix was added. Cardiology was consulted for cardioembolic workup. Smoking cessation has been counseled extensively. PTOT is following.. Speech and swallow evaluation. Further recommendations based on the clinical course. Possible transfer to rehab pending cardiac workup. Time with Patient: Greater than 30
[2018-11-16] MEDS: SODIUM CHLORIDE 0.9% 1,000 ML IV SCH (06:48)
[2018-11-16 07:33] LABS: Basophils % (A) 0 %; Eosinophils # (A) 0.4 k/uL (0-0.7); Eosinophils % (A) 4 %; HCT 41.3 % (34.0-46.0); HGB 13.3 gm/dL (11.4-16.0); Lymphocytes # (A) 1.7 k/uL (1.0-4.8); Lymphocytes % (A) 18 %; MCH 29.1 pg (25.0-35.0); MCHC 32.3 g/dL (31.0-37.0); MCV 90.2 fL (80.0-100.0); Mean Platelet Volume 6.6; Monocytes # (A) 0.8 k/uL (0-1.0); Monocytes % (A) 8 %; Neutrophils # (A) 6.4 k/uL (1.3-7.7); Neutrophils % (A) 68 %; Platelet Count 325 k/uL (150-450); RBC 4.57 m/uL (3.80-5.40); RDW 15.9 % (11.5-15.5); WBC 9.4 k/uL (3.8-10.6)
[2018-11-16 07:50] LABS: Calcium 8.9 mg/dL (8.4-10.2); Potassium 3.5 mmol/L (3.5-5.1)
[2018-11-16 08:50] VITALS: RESP 16; TEMP 97.2
[2018-11-16] MEDS: ASPIRIN 325 MG TAB PO SCH (08:52)
[2018-11-16] MEDS: FAMOTIDINE 20 MG TAB PO SCH (08:52)
[2018-11-16] MEDS: CLOPIDOGREL 75 MG TAB PO SCH (08:52)
--- NOTE | 2018-11-16 09:15 | P.CRDCN ---
History of Present Illness Consult date: 11/16/18 History of present illness: This is a 73-year-old female patient with a past medical history significant for recurrent TIA, hypertension, dyslipidemia, and history of smoking, presented to the hospital with right sided weakness. She was in her usual state of health until yesterday when she was sitting watching TV and she was trying to stand up and she felt her right leg was weak and her right arm was numb. No symptoms of slurred speech, syncope, dizziness, heart racing or fluttering, chest pain or chest discomfort, or shortness of breath. She underwent a computed tomography scan of the head which came in to be unremarkable. She also underwent a CT angiogram of the head and neck which came in to be unremarkable. In February 2080 she underwent a KEYA which also came in to be unremarkable. So far the patient has been maintaining normal sinus mechanism. Past Medical History Past Medical History: CVA/TIA, Hyperlipidemia History of Any Multi-Drug Resistant Organisms: MRSA Date of last positivie culture/infection: 03/01/18 MDRO Source:: urine Additional Past Surgical History / Comment(s): bilateral cataract removed Ap November 2017 Past Anesthesia/Blood Transfusion Reactions: No Reported Reaction Past Psychological History: No Psychological Hx Reported Smoking Status: Current every day smoker Past Alcohol Use History: None Reported Past Drug Use History: None Reported Medications and Allergies Home Medications Medication Instructions Recorded Confirmed Type Aspirin EC [Ecotrin Low Dose] 81 mg PO HS 02/25/18 11/14/18 History Atorvastatin [Lipitor] 80 mg PO HS 02/25/18 11/14/18 History Clopidogrel [Plavix] 75 mg PO DAILY tab 03/02/18 11/14/18 Rx Atenolol [Tenormin] 25 mg PO BID 11/14/18 11/14/18 History Allergies Allergy/AdvReac Type Severity Reaction Status Date / Time No Known Allergies Allergy Verified 11/14/18 07:40 Physical Exam Vitals: Vital Signs Temp Pulse Resp BP BP Pulse Ox 11/16/18 08:00 97.2 F L 90 16 133/103 150/90 94 L 11/16/18 04:00 98.1 F 75 18 150/91 97 11/16/18 00:00 98.0 F 78 18 150/79 95 11/15/18 20:00 98 F 87 17 156/82 97 11/15/18 15:28 97.8 F 97 16 143/81 98 11/15/18 11:29 77 11/15/18 11:28 77 18 129/80 97 Intake and Output 11/15/18 11/16/18 11/16/18 22:59 06:59 14:59 Intake Total 240 1700 0 Output Total 200 Balance 240 1500 0 Intake: Intake, IV Titration 1100 Amount Sodium Chloride 0.9% 1, 1100 000 ml @ 100 mls/hr IV . Q10H [facility] Rx#:[id number] Oral 240 600 0 Output: Urine 200 Other: Voiding Method Toilet Toilet # Voids 1 3 # Bowel Movements 0 Weight 74.6 kg - Constitutional General appearance: no acute distress - Respiratory Respiratory: bilateral: CTA - Cardiovascular Rhythm: regular Heart sounds: normal: S1, S2 Results 11/16/18 06:37 11/16/18 06:37 CBC 11/16/18 Range/Units 06:37 WBC 9.4 (3.8-10.6) k/uL RBC 4.57 (3.80-5.40) m/uL Hgb 13.3 (11.4-16.0) gm/dL Hct 41.3 (34.0-46.0) % Plt Count 325 (150-450) k/uL Comprehensive Metabolic Panel 11/16/18 Range/Units 06:37 Sodium 142 (137-145) mmol/L Potassium 3.5 (3.5-5.1) mmol/L Chloride 108 H (98-107) mmol/L Carbon Dioxide 28 (22-30) mmol/L BUN 15 (7-17) mg/dL Creatinine 0.90 (0.52-1.04) mg/dL Glucose 96 (74-99) mg/dL Calcium 8.9 (8.4-10.2) mg/dL Current Medications Generic Name Dose Route Start Last Admin Trade Name Freq PRN Reason Stop Dose Admin Acetaminophen 650 mg 11/14/18 06:00 Tylenol Tab PO Q6HR PRN Fever and/ or Pain Aspirin 325 mg 11/14/18 09:00 11/16/18 08:52 Aspirin PO 325 mg DAILY [facility] Administration Atorvastatin Calcium 80 mg 11/14/18 21:00 11/15/18 20:32 Lipitor PO 80 mg HS [facility] Administration Clopidogrel Bisulfate 75 mg 11/14/18 09:00 11/16/18 08:52 Plavix PO 75 mg DAILY [facility] Administration Docusate Sodium 100 mg 11/14/18 08:00 11/15/18 23:22 Colace PO 100 mg Q8HR [facility] Administration Famotidine 20 mg 11/14/18 09:00 11/16/18 08:52 Pepcid PO 20 mg BID [facility] Administration Sodium Chloride 1,000 mls @ 100 mls/hr 11/14/18 03:45 11/16/18 06:48 Saline 0.9% IV Not Given .Q10H [facility] Intake and Output 11/15/18 11/16/18 11/16/18 22:59 06:59 14:59 Intake Total 240 1700 0 Output Total 200 Balance 240 1500 0 Intake: Intake, IV Titration 1100 Amount Sodium Chloride 0.9% 1, 1100 000 ml @ 100 mls/hr IV . Q10H [facility] Rx#:[id number] Oral 240 600 0 Output: Urine 200 Other: Voiding Method Toilet Toilet # Voids 1 3 # Bowel Movements 0 Weight 74.6 kg 11/16/18 06:37 11/16/18 06:37 Assessment and Plan Assessment: Assessment #1 recurrent TIA #260 of smoking #3 dyslipidemia Plan #1 continue the current medical regimen #2 if there is no evidence of arrhythmia noted in the hospital, the patient might benefit from an event monitor and possibly loop recorder Thank you for allowing us participate in her care
--- NOTE | 2018-11-16 10:30 | P.PN ---
Subjective Progress Note Date: 11/16/18 Principal diagnosis: * Acute ischemic CVA, bilateral, subcortical * Hypertension * Hyperlipidemia * Tobacco users Patient was seen for a follow-up. Patient states that she is feeling much better. No new neurological symptoms. Her right side of the body and the legs feels better. No new neurological symptoms. Her speech appears normal. Patient's and couple children were also present. Patient was seen by respiratory supervisor, who is recommending continuing telemetry monitoring. If any evidence of arrhythmia, that may need event monitor. Patient already had transesophageal echocardiogram performed in February 2018 which was normal. MRI of the brain was performed, which revealed evidence of bilateral ischemic strokes in multiple vascular territories. There is acute ischemic stroke in the left periventricular white matter, another one in the genu of the corpus callosu m on the left, and a third one, which is probably subacute involving subcortical frontal white matter on the right side. Hemoglobin A1c is normal. LDL is also normal. Patient is on high-dose statins. Objective - Vital Signs Vital signs: Vital Signs Temp 97.2 F L 11/16/18 08:00 Pulse 90 11/16/18 08:00 Resp 16 11/16/18 08:00 BP 133/103 11/16/18 08:00 Pulse Ox 94 L 11/16/18 08:00 Intake & Output 11/15/18 11/16/18 11/16/18 18:59 06:59 18:59 Intake Total 720 1700 0 Output Total 200 Balance 720 1500 0 Weight 74.6 kg Intake: Intake, IV Titration 1100 Amount Sodium Chloride 0.9% 1, 1100 000 ml @ 100 mls/hr IV . Q10H ON LICENSE OF [facility] Rx#:[id number] Oral 720 600 0 Output: Urine 200 Other: Voiding Method Toilet # Voids 1 3 # Bowel Movements 0 - Exam On examination patient is an elderly female, in no distress. Her mental status, speech and language functions are normal. No aphasia or dysarthria. His admission, pupils are round and reacting to light. Visual crooks are full. Face is symmetric and tongue protrudes in midline. Palatal elevation and sensation is normal. Muscle strength testing, there is very mild right pronator drift, much better than yesterday. The strength is normal in the left arm and left leg. On the right side, her deltoid is 5, biceps and triceps are normal. Cardiac Rn is 5-. Hip flexion 5-, ankle dorsiflexion normal. Sensations are equal. The ataxia has much improved on the right side in the arm and leg. Tone and bulk of muscles normal. Patient states that she walks and appeared better than yesterday. Patient has SCDs in place. - Labs CBC & Chem 7: 11/16/18 06:37 11/16/18 06:37 Labs: Abnormal Lab Results - Last 24 Hours (Table) 11/16/18 11/16/18 Range/Units 06:37 06:37 RDW 15.9 H (11.5-15.5) % Chloride 108 H (98-107) mmol/L Assessment and Plan Assessment: * Acute ischemic stroke, bilateral, subcortical. Differential diagnosis is between cardioembolic source, hypercoagulable state or vasculitis. * Hypertension * Hyperlipidemia * Tobacco user Plan: Patient has bilateral ischemic strokes of unclear etiology. Patient is currently on dual antiplatelet medications. She is compliant with medication. Her dose of aspirin has been increased from 81 to 325 mg daily. Patient will be continued on Plavix 75 mg daily also. Cardiology input appreciated. Awaiting hematology consultation to rule out hypercoagulable state. Patient has clinically improved a lot. Her right hemiparesis has remarkably improved. Her ataxia also has improved. If no obvious answers found, then patient may need a cerebral angiogram as an outpatient to rule out [employer] vasculitis. PT OT Patient was again recommended tobacco cessation.
[2018-11-16 11:22] VITALS: BP 139/80; PULSE 84
[2018-11-16] MEDS: DOCUSATE 100 MG CAP PO SCH (11:23)
--- NOTE | 2018-11-16 15:05 | P.CONS ---
History of Present Illness - Reason for Consult Consult date: 11/16/18 Rule out hypercoagulable state Requesting physician: Naveed Singleton - Chief Complaint Right-sided lower extremity deficit - History of Present Illness Mrs. Davenport is a very pleasant 73-year-old female who states a history of left-sided CVA in 2018 with some residual deficit in the left lower extremity, she is now admitted for a right-sided lower extremity deficit. Patient states her TIAs started about 4-5 years ago. During that timeframe she also had about a 40-50 pound weight loss, all workup she states has been nondiagnostic. Patient denies any personal history of cancer, she is up-to-date on her mammogram, she had a colonoscopy in 2018, she is unsure if she is ever had an EGD, she is no longer having Pap smears. Review of Systems 10 point review of systems is negative except as stated in HPI Past Medical History Past Medical History: CVA/TIA, Hyperlipidemia History of Any Multi-Drug Resistant Organisms: MRSA Year Discovered:: 03/01/18 MDRO Source:: urine Additional Past Surgical History / Comment(s): bilateral cataract removed November 2017 Past Anesthesia/Blood Transfusion Reactions: No Reported Reaction Past Psychological History: No Psychological Hx Reported Smoking Status: Current every day smoker Past Alcohol Use History: None Reported Past Drug Use History: None Reported Medications and Allergies Home Medications Medication Instructions Recorded Confirmed Type Atorvastatin [Lipitor] 80 mg PO HS 02/25/18 11/14/18 History Clopidogrel [Plavix] 75 mg PO DAILY tab 03/02/18 11/14/18 Rx Atenolol [Tenormin] 25 mg PO BID 11/14/18 11/14/18 History Aspirin 325 mg PO DAILY #30 tab 11/16/18 Rx Allergies Allergy/AdvReac Type Severity Reaction Status Date / Time No Known Allergies Allergy Verified 11/14/18 07:40 Physical Exam Vitals: Vital Signs Temp Pulse Resp BP BP Pulse Ox 11/16/18 11:34 84 11/16/18 11:22 84 16 139/80 96 11/16/18 08:00 97.2 F L 90 16 133/103 150/90 94 L 11/16/18 04:00 98.1 F 75 18 150/91 97 11/16/18 00:00 98.0 F 78 18 150/79 95 11/15/18 20:00 98 F 87 17 156/82 97 11/15/18 15:28 97.8 F 97 16 143/81 98 Intake and Output 11/15/18 11/16/18 11/16/18 22:59 06:59 14:59 Intake Total 240 1700 0 Output Total 200 Balance 240 1500 0 Intake: Intake, IV Titration 1100 Amount Sodium Chloride 0.9% 1, 1100 000 ml @ 100 mls/hr IV . Q10H [facility] Rx#:[id number] Oral 240 600 0 Output: Urine 200 Other: Voiding Method Toilet Toilet # Voids 1 3 # Bowel Movements 0 Weight 74.6 kg - Constitutional General appearance: cooperative, no acute distress, thin - EENT Eyes: anicteric sclerae, EOMI ENT: no hard of hearing, hearing grossly normal, no NA/AT, normal oropharynx, no other, no pharyngeal erythema, no thrush, no tonsillar exudates, no tonsillar swelling - Neck Neck: no lymphadenopathy - Respiratory Respiratory: bilateral: CTA, diminished - Cardiovascular Rhythm: regular Heart sounds: normal: S1, S2 leg Peripheral Edema: bilateral: None - Gastrointestinal General gastrointestinal: no absent bowel sounds, no decreased bowel sounds, no distended, no hepatomegaly, no hyperactive bowel sounds, normal bowel sounds, no organomegaly, no rigid, no scaphoid, soft, no splenomegaly, no tenderness, no umbilical hernia, no ventral hernia - Neurologic Mild speech deficit noted - Musculoskeletal Musculoskeletal: right sided weakness - Psychiatric Psychiatric: A&O x's 3, appropriate affect, intact judgment & insight Results CBC & Chem 7: 11/16/18 06:37 11/16/18 06:37 Labs: Abnormal Lab Results - Last 24 Hours (Table) 11/16/18 11/16/18 Range/Units 06:37 06:37 RDW 15.9 H (11.5-15.5) % Chloride 108 H (98-107) mmol/L Comments: Pelvic x-ray report reviewed CT Scan - head: report reviewed MRI - head: report reviewed Assessment and Plan (1) CVA (cerebral vascular accident) Narrative/Plan: History of TIA and CVA. Patient has been seen by Neurology. We have been asked to see patient to rule out a hypercoagulable state. All the labs have been ordered for evaluation. Most of these labs can take up to 2 weeks to return. Recommend a follow-up with grief counselor in 2-3 weeks for results and recommendations. Patient will need to continue her treatment as prescribed by Neurology Current Visit: Yes Status: Acute Priority: High Code(s): I63.9 - CEREBRAL INFARCTION, UNSPECIFIED SNOMED Code(s): 209348140 Plan: Once labs are drawn pt is ok from a Hem/Onc standpoint to go to rehab. She will f/u in the outpatient setting in about 2 weeks when results of work up available If pt has not had, would recommend bubble study to rule out PFO
--- NOTE | 2018-11-16 15:09 | P.DS ---
Providers Date of admission: 11/14/18 03:41 Expected date of discharge: 11/16/18 Attending physician: Oliver Franklin Consults: 11/14/18 03:41 Consult Physician Routine Consulting Provider: Naveed Singleton Consult Reason/Comments: Stroke vs TIA Do you want consulting provider notified?: Yes 11/15/18 09:50 Consult Physician Routine Consulting Provider: Cj Morris Consult Reason/Comments: cva Do you want consulting provider notified?: Yes 11/15/18 11:48 Consult Physician Routine Consulting Provider: [facility] Consult Reason/Comments: Bilateral ischemic CVA. Rule out cardio-embolic vs paroxysmal A Fib Do you want consulting provider notified?: Yes 11/15/18 11:50 Consult Physician Routine Consulting Provider: [facility] Consult Reason/Comments: Recurrent multiple CVA rule out hypercoagulable state Do you want consulting provider notified?: Yes 11/16/18 11:00 Consult Physician Routine Consulting Provider: Ken Lubin Consult Reason/Comments: multipel strokes, r/o blood issue Do you want consulting provider notified?: Yes Primary care physician: Therese Omer Hospital Course: Discharge diagnosis Right-sided numbness with difficulty walking due to acute CVA Recurrent TIA Hypertension on admission Previous history of CVA/TIA Hyperlipidemia Nicotine addiction DVT prophylaxis Hospital course Patient is a 73-year-old female with a known history of CVA/TIA 5 years ago with balance issues came to ER with the complaints of numbness of the right side of the body, bilateral upper and lower extremities. Patient also having difficulty with walking. Patient says that her symptoms started last night while she was watching TV and suddenly felt numbness over the right side of the body and unable to get up from the couch. Otherwise denied any complaints of headache. No dizziness or lightheadedness. Denied any slurred speech or facial droop. Patient came to ER last night. Patient is out of time for TPA. Currently patient's symptoms have improved especially right leg numbness. Still having some residual numbness. Otherwise denied any complaints of recent illnesses. No chest pain or shortness of breath. No nausea vomiting. No diarrhea. No dysuria or hematuria. CT head was done in the ER showed no acute intracranial process. CT angiogram of the head and neck showed no significant stenosis. Chest x-ray negative EKG showed normal sinus rhythm. 11/15/2018 Patient is able to sit in chair comfortably. I spent in physical therapy. Still complaining of numbness over the right upper extremity and right leg. Some weakness in the right upper arm.Difficulty. Tolerating oral diet. MRI of the brain showed prominent T2 hyperintense coronary radiata and centrum semiovale deep white matter pattern is redemonstrated. Which is evidence of a small skin band of restricted diffusion. Cardiology was consulted for cardioembolic workup including a ventilator for atrial fibrillation/arrhythmia. Patient denied any complaints of headache or dizziness. No fever no chills. No other acute overnight issues. Neurology is following. 11/16/2018 Patient is able to sit in the chair comfortably. Right-sided numbness is almost resolved. No acute overnight issues. Patient was seen by cardiology due to recurrent TIA. Patient needs to follow with cardiology clinic for possible loop recorder placement. No arrhythmia noted while in the hospital. Patient was also seen by hematology for hypercoagulable workup. Lab tests for protein C,S, lupus anticoagulant, antithrombin III, homocystine, cardiolipin and factor V Leiden were sent. Patient is participating in physical therapy. Stable to be discharged to rehab. PHYSICAL EXAMINATION: Patient is lying in the bed comfortably, no acute distress, awake alert and oriented.. HEENT: Normocephalic. Neck is supple. Pupils reactive. Nostrils clear. Oral cavity is moist. Ears reveal no drainage. Neck reveals no JVD, carotid bruits, or thyromegaly. CHEST EXAMINATION: Trachea is central. Symmetrical expansion. Lung crooks clear to auscultation and percussion. CARDIAC: Normal S1, S2 with no gallops. No murmurs ABDOMEN: Soft. Bowel sounds normal. No organomegaly. No abdominal bruits. Extremities: reveal no edema. No clubbing or cyanosis Neurologically awake, alert, oriented x3 with well-coordinated movements. No fo lucy deficits noted Skin: No rash or skin lesions. Psychiatric: Coperative. Nonsuicidal Musculoskeletal: No joint swelling or deformity. Normal range of motion. Vital Signs 11/16/18 11/16/18 11/16/18 08:00 11:22 11:34 Temperature 97.2 F L Pulse Rate [ 90 84 84 [employer] ] Respiratory 16 16 Rate Blood Pressure 133/103 139/80 [Left Arm Sitting] Blood Pressure 150/90 [Right Arm Sitting] O2 Sat by Pulse 94 L 96 Oximetry Total time taken greater than 35 minutes including 18 minutes for counseling and coordination of care. Patient Condition at Discharge: Fair Plan - Discharge Summary Discharge Rx Participant: No New Discharge Prescriptions: New Aspirin 325 mg PO DAILY #30 tab Continue Atorvastatin [Lipitor] 80 mg PO HS Clopidogrel [Plavix] 75 mg PO DAILY tab Atenolol [Tenormin] 25 mg PO BID Discontinued Aspirin EC [Ecotrin Low Dose] 81 mg PO HS Discharge Medication List Atorvastatin [Lipitor] 80 mg PO HS 02/25/18 [History] Clopidogrel [Plavix] 75 mg PO DAILY tab 03/02/18 [Rx] Atenolol [Tenormin] 25 mg PO BID 11/14/18 [History] Aspirin 325 mg PO DAILY #30 tab 11/16/18 [Rx] Follow up Appointment(s)/Referral(s): Ken Lubin MD [STAFF PHYSICIAN] - 12/11/18 3:00 pm () Antoni Short MD [STAFF PHYSICIAN] - 1 Week (Please make follow up appointment after rehab discharge to set up event monitor. ) Clarita Tomlin MD [STAFF PHYSICIAN] - 1 Week Therese Omer MD [Primary Care Provider] - 1-2 days Patient Instructions/Handouts: Ischemic Stroke (DC) Activity/Diet/Wound Care/Special Instructions: IPR Discharge Disposition: TRANSFER TO SNF/ECF
[2018-11-17 00:16] LABS: Cardiolipin Ab IgG Interp NEGATIVE (NEGATIVE); Cardiolipin IgA Antibody <0.5 U/mL
[2018-11-17 00:19] LABS: Cardiolipin Ab IgM Interp NEGATIVE (NEGATIVE); Cardiolipin IgM Antibody 0.8 U/mL
[2018-11-19 12:16] LABS: APTT 37 Sec(s) (<43); Dilute Russell Viper Venom 43 Sec(s) (<44)
[2018-11-19 13:41] LABS: Protein S Antigen 119 % (50 - 140)
[2018-11-20 11:18] LABS: Protein C Antigen 86 % (72-160)
[2018-11-20 13:14] LABS: Protein C (Activity) 83 % (71-138)
== END 2018-11-16 15:54 | DRG 65 ==
LOC: EC 01:29 → 3SCARD 03:41
PROVIDERS: ADMIT Hospitalist; ATTEND Hospitalist
DX: I63.81 Other cerebral infarction due to occlusion or stenosis of small artery (principal); I69.352 Hemiplegia and hemiparesis following cerebral infarction affecting left dominant side; I69.353 Hemiplegia and hemiparesis following cerebral infarction affecting right non-dominant side; E78.5 Hyperlipidemia, unspecified; I10 Essential (primary) hypertension; F17.210 Nicotine dependence, cigarettes, uncomplicated; M19.90 Unspecified osteoarthritis, unspecified site; Z79.899 Other long term (current) drug therapy; Z79.02 Long term (current) use of antithrombotics/antiplatelets; Z86.14 Personal history of Methicillin resistant Staphylococcus aureus infection; Z98.42 Cataract extraction status, left eye; Z98.41 Cataract extraction status, right eye; Z71.6 Tobacco abuse counseling; Z82.49 Family history of ischemic heart disease and other diseases of the circulatory system; Z80.9 Family history of malignant neoplasm, unspecified; Z79.82 Long term (current) use of aspirin
CPT/HCPCS: 36415; 70450; 70496; 70498; 70551; 71045; 73502; 80048; 80053; 80061; 81001; 81240; 81241; 82550; 82553; 83036; 83090; 84484; 85025; 85300; 85301; 85302; 85303; 85305; 85306; 85610; 85613; 85730; 86146; 86147; 93005; 99291

== ENCOUNTER → 2019-04-17 | Outpatient (CLI) | payer MEDICARE ==
--- NOTE | 2019-04-19 11:49 | MM ---
Reason for exam: screening (asymptomatic). Last mammogram was performed 1 year ago. History: Patient is postmenopausal. Benign stereotactic core biopsy of the right breast, December 14, 1999. Core biopsy of the right breast. Physical Findings: A clinical breast exam by your physician is recommended on an annual basis and results should be correlated with mammographic findings. MG 3D Screening Mammo W/Cad Bilateral CC and MLO view(s) were taken. Prior study comparison: April 13, 2018, bilateral MG 3d screening mammo w/cad. February 20, 2017, bilateral MG 3d screening mammo w/cad. The breast tissue is heterogeneously dense. This may lower the sensitivity of mammography. Previous mammotome biopsy in the right breast with associated benign mass. Stable grouped calcifications centrally on the left. No significant changes when compared with prior studies. ASSESSMENT: Benign, BI-RAD 2 RECOMMENDATION: Routine screening mammogram of both breasts in 1 year.
== END ==
LOC: RADMAMWWP 13:29
PROVIDERS: ATTEND Internal Medicine
DX: Z12.31 Encounter for screening mammogram for malignant neoplasm of breast (principal); Z78.0 Asymptomatic menopausal state
CPT/HCPCS: 77063; 77067

== ENCOUNTER → 2020-10-21 | Outpatient (CLI) | payer MEDICARE ==
--- NOTE | 2020-10-21 15:35 | US ---
EXAMINATION TYPE: US kidneys/renal and bladder DATE OF EXAM: 10/21/2020 COMPARISON: NONE CLINICAL HISTORY: R31.0 GROSS HEMATURIA. Hematuria EXAM MEASUREMENTS: Right Kidney: 10.5 x 3.6 x 4.8 cm Left Kidney: 11.8 x 4.1 x 3.9 cm cm Right Kidney: Multiple cysts seen largest 2.4 x 2.3 x 2.5 cm with hydronephrosis Left Kidney: Hydronephrosis vs. dilated renal pelvis 2.1 x 2.6 x 1.8 cm. Bladder: Anechoic Bilateral Jets seen: Yes There is no evidence for hydronephrosis at this point in time. No nephrolithiasis is seen. No solid masses are identified. The urinary bladder is anechoic. Bilateral ureteral jets are seen. IMPRESSION: 1. Mild hydronephrosis left kidney is difficult to exclude. 2. Mild hydronephrosis right kidney. 3. Renal cystic changes.
--- NOTE | 2020-10-21 15:39 | US ---
EXAMINATION TYPE: US pelvic complete DATE OF EXAM: 10/21/2020 COMPARISON: NONE CLINICAL HISTORY: R31.0 GROSS HEMATURIA. Hematuria exam limited due to bowel gas. TECHNIQUE: Transabdominal (TA). Date of LMP: EXAM MEASUREMENTS: Uterus: 5.1 x 2.8 x 4.1 cm Endometrial Stripe: Not well visualized. 1. Uterus: Anteverted Heterogenous limited 2. Endometrium: Not well visualized. 3. Right Ovary: Obscured by overlying bowel gas 4. Left Ovary: Obscured by overlying bowel gas 5. Bilateral Adnexa: wnl 6. Posterior cul-de-sac: wnl IMPRESSION: No distinct abnormality appreciated.
== END | disposition home or self-care (01) ==
LOC: RADUSWWP 14:34
PROVIDERS: ATTEND Internal Medicine
DX: R31.0 Gross hematuria (principal); N13.30 Unspecified hydronephrosis
CPT/HCPCS: 76770; 76856

== ENCOUNTER → 2020-11-11 | Outpatient (CLI) | payer MEDICARE ==
--- NOTE | 2020-11-12 08:03 | CT ---
EXAMINATION TYPE: CT urogram wo/w con DATE OF EXAM: 11/11/2020 HISTORY: Hematuria CT DLP: 1058.2mGycm Automated Exposure Control for Dose Reduction was Utilized. CONTRAST: CT scan of the abdomen and pelvis is performed without oral and without and with IV Contrast, patient injected with 80 mL of Isovue 300. Urogram protocol with 3-D reconstructed images created on a [employer] workstation and reviewed. COMPARISON: CT abdomen and pelvis May 16, 2017 FINDINGS: KUB: Noncontrast images show new 4 mm calculus lower pole calyx right kidney coronal image 71 and sug gestion of 2 additional 1 to 2 mm calculi midpole level coronal image 82. There is 1 to 2 mm nonobstr ucting calculus lower pole level coronal image 75 left kidney. Postcontrast images show symmetric upt ashley and excretion despite appearance of persistent moderate left greater than right bilateral hydrone phrosis. There are scattered simple appearing thin-walled cysts identified bilaterally with more nume beto and larger cysts noted throughout the right kidney versus left kidney. No concerning solid or cy stic renal masses. Bilateral ureters are not dilated, and no obstructing mass or calculi seen. Urinar y bladder appears unremarkable in the pelvis. LUNG BASES: No significant abnormality is appreciated. LIVER/GB: No significant abnormality is appreciated. PANCREAS: No significant abnormality is seen. SPLEEN: Few scattered punctate calcifications throughout the spleen redemonstrated consistent with pr oduct of old granulomatous disease. 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 BOWEL: Incidental normal-appearing appendix right lower quadrant. UTERUS/ADNEXA: Anteverted uterus. Scattered bilateral pelvic phleboliths redemonstrated. LYMPH NODES: No new greater than 1cm abdominal or pelvic lymph nodes are appreciated. OSSEOUS STRUCTURES: Focal left lateral spurring L3-L4 level redemonstrated. OTHER: Persistent moderate calcified plaque of the aorta extends into branch vessels. Stable focal ec fly coronal image 37 infrarenal abdominal aorta. No greater than 3.0 cm aneurysm. IMPRESSION: Small bilateral renal calculi as detailed above. Scattered benign-appearing thin-walled c ysts are more prominent right kidney versus left kidney. Moderate bilateral hydronephrosis redemonstr ated left slightly more prominent than right but no delayed excretion and no hydroureter suggests pos sible persistent UPJ stricture or stenosis.
== END | disposition home or self-care (01) ==
LOC: RADCTMAIN 13:19
PROVIDERS: ATTEND Urology
DX: N20.0 Calculus of kidney (principal); N28.1 Cyst of kidney, acquired; N13.30 Unspecified hydronephrosis
CPT/HCPCS: 82565; 84520; 74178; 36415; 74400; Q9967

== ENCOUNTER → 2020-11-26 | Outpatient (CLI) | payer MEDICARE ==
--- NOTE | 2020-11-27 14:58 | MM ---
Reason for exam: screening (asymptomatic). Last mammogram was performed 1 year and 7 months ago. History: Patient is postmenopausal. Benign stereotactic core biopsy of the right breast, December 14, 1999. Core biopsy of the right breast. Physical Findings: A clinical breast exam by your physician is recommended on an annual basis and results should be correlated with mammographic findings. MG 3D Screening Mammo W/Cad Bilateral CC and MLO view(s) were taken. Prior study comparison: April 17, 2019, bilateral MG 3d screening mammo w/cad. April 13, 2018, bilateral MG 3d screening mammo w/cad. There are scattered fibroglandular densities. No significant changes when compared with prior studies. ASSESSMENT: Benign, BI-RAD 2 RECOMMENDATION: Routine screening mammogram of both breasts in 1 year.
== END | disposition home or self-care (01) ==
LOC: RADMAMWWP 11:55
PROVIDERS: ATTEND Internal Medicine
DX: Z12.31 Encounter for screening mammogram for malignant neoplasm of breast (principal); Z78.0 Asymptomatic menopausal state
CPT/HCPCS: 77063; 77067

== ENCOUNTER 2021-01-08 15:04 | Emergency (ER) | payer MEDICARE ==
[2021-01-08 15:09] VITALS: BP 152/82; PULSE 86; RESP 18; TEMP 97.4
[2021-01-08] MEDS ORDERED: MECLIZINE 12.5 MG TAB PO STA (15:34)
[2021-01-08] MEDS ORDERED: SODIUM CHLORIDE 0.9% 1,000 ML IV STA (15:34)
--- NOTE | 2021-01-08 15:48 | ED ---
General Adult HPI - General Chief complaint: Dizziness Stated complaint: Neuro Symptoms Time Seen by Provider: 01/08/21 15:20 Source: patient, RN notes reviewed, old records reviewed Mode of arrival: wheelchair Limitations: no limitations - History of Present Illness Initial comments: 75-year-old female presenting for evaluation of dizziness and lightheadedness which began yesterday approximately 24 hours prior to arrival. Patient denies associated headache. No chest pain. No abdominal pain. Patient does believe she may be dehydrated. . She denies focal limb weakness or numbness. No difficulty finding words, no slurred speech. - Related Data Home Medications Medication Instructions Recorded Confirmed Atorvastatin [Lipitor] 80 mg PO HS 02/25/18 01/08/21 atenoloL [Tenormin] 50 mg PO DAILY 11/14/18 01/08/21 Acetaminophen [Tylenol Extra 500 mg PO Q8H PRN 01/08/21 01/08/21 Strength] Allergies Allergy/AdvReac Type Severity Reaction Status Date / Time No Known Allergies Allergy Verified 01/08/21 16:35 Review of Systems ROS Statement: Those systems with pertinent positive or pertinent negative responses have been documented in the HPI. ROS Other: All systems not noted in ROS Statement are negative. 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 Date of last positivie culture/infection: 03/01/18 MDRO Source:: urine Past Surgical History: No Surgical Hx Reported Additional Past Surgical History / Comment(s): bilateral cataract removed November 2017, Past Anesthesia/Blood Transfusion Reactions: No Reported Reaction Past Psychological History: No Psychological Hx Reported Smoking Status: Current every day smoker Past Alcohol Use History: None Reported Past Drug Use History: None Reported General Exam Limitations: no limitations General appearance: alert, in no apparent distress Head exam: Present: atraumatic, normocephalic Eye exam: Present: normal appearance, PERRL ENT exam: Present: mucous membranes dry Neck exam: Present: normal inspection. Absent: tenderness, meningismus Respiratory exam: Present: normal lung sounds bilaterally. Absent: respiratory distress, wheezes Cardiovascular Exam: Present: regular rate, normal rhythm GI/Abdominal exam: Present: soft. Absent: distended, tenderness, guarding Extremities exam: Present: normal inspection, normal capillary refill. Absent: pedal edema, calf tenderness Neurological exam: Present: alert, oriented X3, CN II-XII intact, other (NIH of 0, no limb ataxia). Absent: motor sensory deficit Psychiatric exam: Present: normal affect, normal mood Skin exam: Present: warm, dry, intact. Absent: cyanosis, diaphoretic Course Vital Signs 01/08/21 15:05 Temperature 97.4 F L Pulse Rate 86 Respiratory 18 Rate Blood Pressure 152/82 O2 Sat by Pulse 98 Oximetry - Reevaluation(s) Reevaluation #1: 01/08/21 17:50 Patient reevaluated, resting comfortably, normal gait, negative Romberg, no ataxia EKG Findings - EKG Comments: EKG Findings:: EKG: Normal sinus rhythm, left axis rate 75, AZ interval 158, QRS duration 90, QTC 460 Medical Decision Making - Medical Decision Making 75-year-old female with dizziness, lightheadedness. Patient has stable vitals, in sinus rhythm. She has a nonfocal neurologic exam with no ataxia. I did perform a workup on this patient including labs, chest x-ray, CT brain. CT brain negative for hemorrhage or mass effect. Chest x-ray negative for acute cardio pulmonary disease. She has a relatively normal CBC and CMP, urinalysis showing small amount of red cells, no urinary symptoms, culture pending. Patient feeling better after hydration and meclizine. I did discuss observation and the patient prefers to be discharged home with strict return parameters. - Lab Data Result diagrams: 01/08/21 16:12 01/08/21 16:12 Lab Results 01/08/21 01/08/21 01/08/21 Range/Units 16:12 16:12 16:12 WBC 8.5 (3.8-10.6) k/uL RBC 5.31 (3.80-5.40) m/uL Hgb 15.7 (11.4-16.0) gm/dL Hct 46.5 H (34.0-46.0) % MCV 87.5 (80.0-100.0) fL MCH 29.6 (25.0-35.0) pg MCHC 33.9 (31.0-37.0) g/dL RDW 16.6 H (11.5-15.5) % Plt Count 344 (150-450) k/uL MPV 6.9 Neutrophils % 63 % Lymphocytes % 23 % Monocytes % 6 % Eosinophils % 6 % Basophils % 0 % Neutrophils # 5.4 (1.3-7.7) k/uL Lymphocytes # 2.0 (1.0-4.8) k/uL Monocytes # 0.5 (0-1.0) k/uL Eosinophils # 0.5 (0-0.7) k/uL Basophils # 0.0 (0-0.2) k/uL Anisocytosis Slight PT 9.9 (9.0-12.0) sec INR 0.9 (<1.2) Sodium (137-145) mmol/L Potassium (3.5-5.1) mmol/L Chloride (98-107) mmol/L Carbon Dioxide (22-30) mmol/L Anion Gap mmol/L BUN (7-17) mg/dL Creatinine (0.52-1.04) mg/dL Est GFR (CKD-EPI)AfAm (>60 ml/min/1.73 sqM) Est GFR (CKD-EPI)NonAf (>60 ml/min/1.73 sqM) Glucose (74-99) mg/dL Calcium (8.4-10.2) mg/dL Total Bilirubin (0.2-1.3) mg/dL AST (14-36) U/L ALT (4-34) U/L Alkaline Phosphatase (38-126) U/L Troponin I (0.000-0.034) ng/mL Total Protein (6.3-8.2) g/dL Albumin (3.5-5.0) g/dL Urine Color Yellow Urine Appearance Clear (Clear) Urine pH 6.5 (5.0-8.0) Ur Specific [place] 1.012 (1.001-1.035) Urine Protein Negative (Negative) Urine Glucose (UA) Negative (Negative) Urine Ketones Negative (Negative) Urine Blood Moderate H (Negative) Urine Nitrite Negative (Negative) Urine Bilirubin Negative (Negative) Urine Urobilinogen <2.0 (<2.0) mg/dL Ur Leukocyte Esterase Moderate H (Negative) Urine RBC 20 H (0-5) /hpf Urine WBC 7 H (0-5) /hpf Ur Squamous Epith Cells 4 (0-4) /hpf Urine Bacteria Occasional H (None) /hpf Urine Mucus Rare H (None) /hpf 01/08/21 01/08/21 Range/Units 16:12 16:12 WBC (3.8-10.6) k/uL RBC (3.80-5.40) m/uL Hgb (11.4-16.0) gm/dL Hct (34.0-46.0) % MCV (80.0-100.0) fL MCH (25.0-35.0) pg MCHC (31.0-37.0) g/dL RDW (11.5-15.5) % Plt Count (150-450) k/uL MPV Neutrophils % % Lymphocytes % % Monocytes % % Eosinophils % % Basophils % % Neutrophils # (1.3-7.7) k/uL Lymphocytes # (1.0-4.8) k/uL Monocytes # (0-1.0) k/uL Eosinophils # (0-0.7) k/uL Basophils # (0-0.2) k/uL Anisocytosis PT (9.0-12.0) sec INR (<1.2) Sodium 139 (137-145) mmol/L Potassium 4.1 (3.5-5.1) mmol/L Chloride 102 (98-107) mmol/L Carbon Dioxide 29 (22-30) mmol/L Anion Gap 8 mmol/L BUN 29 H (7-17) mg/dL Creatinine 1.08 H (0.52-1.04) mg/dL Est GFR (CKD-EPI)AfAm 59 (>60 ml/min/1.73 sqM) Est GFR (CKD-EPI)NonAf 51 (>60 ml/min/1.73 sqM) Glucose 102 H (74-99) mg/dL Calcium 9.3 (8.4-10.2) mg/dL Total Bilirubin 0.4 (0.2-1.3) mg/dL AST 32 (14-36) U/L ALT 19 (4-34) U/L Alkaline Phosphatase 93 (38-126) U/L Troponin I <0.012 (0.000-0.034) ng/mL Total Protein 7.6 (6.3-8.2) g/dL Albumin 4.1 (3.5-5.0) g/dL Urine Color Urine Appearance (Clear) Urine pH (5.0-8.0) Ur Specific [place] (1.001-1.035) Urine Protein (Negative) Urine Glucose (UA) (Negative) Urine Ketones (Negative) Urine Blood (Negative) Urine Nitrite (Negative) Urine Bilirubin (Negative) Urine Urobilinogen (<2.0) mg/dL Ur Leukocyte Esterase (Negative) Urine RBC (0-5) /hpf Urine WBC (0-5) /hpf Ur Squamous Epith Cells (0-4) /hpf Urine Bacteria (None) /hpf Urine Mucus (None) /hpf Disposition Clinical Impression: Dehydration, Dizziness Disposition: HOME SELF-CARE Condition: Fair Instructions (If sedation given, give patient instructions): Dizziness (ED), Vertigo (ED), Dehydration (ED) Is patient prescribed a controlled substance at d/c from ED?: No Referrals: Therese Omer MD [Primary Care Provider] - 1-2 days Time of Disposition: 17:50
[2021-01-08 16:20] LABS: Anisocytosis Slight; Basophils % (A) 0 %; Eosinophils # (A) 0.5 k/uL (0-0.7); Eosinophils % (A) 6 %; HCT 46.5 % (34.0-46.0); HGB 15.7 gm/dL (11.4-16.0); Lymphocytes % (A) 23 %; MCH 29.6 pg (25.0-35.0); MCHC 33.9 g/dL (31.0-37.0); MCV 87.5 fL (80.0-100.0); Mean Platelet Volume 6.9; Monocytes # (A) 0.5 k/uL (0-1.0); Monocytes % (A) 6 %; Neutrophils # (A) 5.4 k/uL (1.3-7.7); Neutrophils % (A) 63 %; Platelet Count 344 k/uL (150-450); RBC 5.31 m/uL (3.80-5.40); RDW 16.6 % (11.5-15.5); WBC 8.5 k/uL (3.8-10.6)
[2021-01-08 16:29] LABS: Albumin 4.1 g/dL (3.5-5.0); Calcium 9.3 mg/dL (8.4-10.2); Potassium 4.1 mmol/L (3.5-5.1); Total Bilirubin 0.4 mg/dL (0.2-1.3); Total Protein 7.6 g/dL (6.3-8.2)
[2021-01-08 16:32] LABS: INR 0.9 (<1.2); Prothrombin Time 9.9 sec (9.0-12.0)
--- NOTE | 2021-01-08 16:53 | CT ---
EXAMINATION TYPE: CT brain wo con DATE OF EXAM: 01/08/2021 COMPARISON: 11/14/2018 HISTORY: Dizziness with weakness. CT DLP: 1099.4 mGycm Automated exposure control for dose reduction was used. Images obtained of the brain without contrast. There is hypodensity in the periventricular white matter in a fairly symmetric distribution. There is no mass effect nor midline shift. There is no sign of intracranial hemorrhage. There is no significa nt atrophy. There is symmetrical hypodensity adjacent to the lateral ventricles posterior to the caud ate nucleus. These are probably old lacunar infarcts. The calvarium is intact. The skull base is intact. IMPRESSION: Moderate white matter changes consistent with chronic small vessel ischemia or demyelinating disease. No significant atrophy. No significant change compared to old exam.
--- NOTE | 2021-01-08 16:56 | XR ---
EXAMINATION TYPE: XR chest 2V DATE OF EXAM: 01/08/2021 COMPARISON: 11/14/2018 HISTORY: Syncope TECHNIQUE: FINDINGS: Heart and mediastinum are within normal limits. Lungs are clear of consolidation. There is mild fibrotic changes at the lung apices. Thoracic aorta is atheromatous. There is no pleural effusio n. There are no hilar masses. There are chest leads. IMPRESSION: No active cardiopulmonary disease. Normal heart. No change. Mild fibrotic changes.
[2021-01-08 17:35] LABS: Appearance,Urine Clear (Clear); Bacteria,Urine Occasional /hpf; Bilirubin,Urine Negative (Negative); Blood,Urine Moderate (Negative); Color,Urine Yellow; Glucose,Urine (UA) Negative (Negative); Ketones,Urine Negative (Negative); Leukocyte Esterase,Urine Moderate (Negative); Mucus,Urine Rare /hpf; Nitrite,Urine Negative (Negative); PH, Urine 6.5 (5.0-8.0); Protein,Urine Negative (Negative); RBC,Urine 20 /hpf (0-5); Specific Gravity,Urine 1.012 (1.001-1.035); Squamous Epithelial Cell,Urine 4 /hpf (0-4); Urobilinogen,Urine <2.0 mg/dL (<2.0); WBC,Urine 7 /hpf (0-5)
== END 2021-01-08 18:12 | disposition home or self-care (01) ==
LOC: EC 15:04
DX: R42 Dizziness and giddiness (principal); E86.0 Dehydration; E78.5 Hyperlipidemia, unspecified; F17.200 Nicotine dependence, unspecified, uncomplicated; Z86.73 Personal history of transient ischemic attack (TIA), and cerebral infarction without residual deficits
CPT/HCPCS: 36415; 70450; 71046; 80053; 81001; 84484; 85025; 85610; 93005; 99284

== ENCOUNTER → 2021-05-13 | Outpatient (CLI) | payer MEDICARE ==
--- NOTE | 2021-05-13 17:07 | US ---
EXAMINATION TYPE: US kidneys/renal and bladder DATE OF EXAM: 05/13/2021 COMPARISON: NONE CLINICAL HISTORY: N13.30 HYDRONEPHROSIS. EXAM MEASUREMENTS: Right Kidney: 11.8 x 3.3 x 3.8 cm Left Kidney: 11.1 x 4.5 x 4.3 cm Right Kidney: mild hydro, multiple cysts largest measuring 2.7 x 2.5 x 2.2cm Left Kidney: mild hydro Bladder: wnl No nephrolithiasis is seen. No solid masses are identified. The urinary bladder is anechoic. Johnathon ateral ureteral jets are seen. IMPRESSION: Mild bilateral hydronephrosis noted.
== END | disposition home or self-care (01) ==
LOC: RADUSWWP 15:27
PROVIDERS: ATTEND Urology
DX: N13.30 Unspecified hydronephrosis (principal)
CPT/HCPCS: 76770

== ENCOUNTER → 2022-12-05 | Outpatient (CLI) | payer MEDICARE ==
--- NOTE | 2022-12-06 19:34 | MM ---
Reason for Exam: Screening (asymptomatic). Last screening mammogram was performed 12 month(s) ago. Patient History: Menarche at age 14. First Full-Term at age 21. Postmenopausal. Core Biopsy on the Right side. 12/14/1999, Benign Stereotactic Core Biopsy on the right side. Sister had breast cancer, right, age 64. Risk Values: Manuela 5 year model risk: 5.0%. NCI Lifetime model risk: 10.0%. Prior Study Comparison: 04/17/2019 Bilateral Screening Mammogram, [facility]. 11/26/2020 Bilateral Screening Mammogram, [facility]. 12/03/2021 Bilateral MG 3D screening mammo w/cad, [facility]. Tissue Density: The breast tissue is heterogeneously dense. This may lower the sensitivity of mammography. Analyzed By CAD. Overall Assessment: Probably benign, BI-RAD 3 Management: Diagnostic Mammogram of the right breast in 6 months. Electronically signed and approved by: Felicia Flores M.D. Radiologist
== END | disposition home or self-care (01) ==
LOC: RADMAMWWP 11:18
PROVIDERS: ATTEND Internal Medicine
DX: Z12.31 Encounter for screening mammogram for malignant neoplasm of breast (principal); Z78.0 Asymptomatic menopausal state; Z80.3 Family history of malignant neoplasm of breast
CPT/HCPCS: 77063; 77067

== ENCOUNTER → 2023-03-29 | Outpatient (CLI) | payer MEDICARE ==
--- NOTE | 2023-03-29 13:53 | XR ---
EXAMINATION TYPE: XR chest 2V DATE OF EXAM: 03/29/2023 12:06 PM CLINICAL INDICATION:Female, 77 years old with history of R042 HEMOPTYSIS; [facility] COMPARISON: Chest radiographs from 01/08/2021 TECHNIQUE: XR chest 2V Frontal and lateral views of the chest. FINDINGS: Lungs/Pleura: There is no evidence of pleural effusion, focal consolidation, or pneumothorax. Pulmonary vascularity: Unremarkable. Heart/mediastinum: Cardiomediastinal silhouette is prominent in size. Atherosclerotic calcifications are seen in the aorta. Musculoskeletal: No acute osseous pathology. IMPRESSION: 1. No acute cardiopulmonary disease process. 2. COPD changes.
== END | disposition home or self-care (01) ==
LOC: RADXRYALE 11:55
PROVIDERS: ATTEND Internal Medicine
DX: J44.9 Chronic obstructive pulmonary disease, unspecified (principal); R04.2 Hemoptysis
CPT/HCPCS: 71046

== ENCOUNTER → 2023-04-03 | Outpatient (CLI) | payer MEDICARE ==
--- NOTE | 2023-04-03 11:01 | CT ---
EXAMINATION TYPE: CT chest w con DATE OF EXAM: 04/03/2023 COMPARISON: 1617 HISTORY: hemoptysis CT DLP: 216.1 mGycm Automated exposure control for dose reduction was used. CONTRAST: CT scan of the chest is performed with IV Contrast, patient injected with 80 mL of Isovue 300. FINDINGS: LUNGS: Right apical parenchymal scarring is noted unchanged from prior study. There is evidence of pa raseptal emphysema. Hyperinflation compatible with COPD. No evidence for airspace consolidation, pleu ral effusion or pulmonary mass. MEDIASTINUM: There are no greater than 1 cm hilar or mediastinal lymph nodes. No pericardial effusi on is seen. Thoracic aorta is of normal caliber. The heart is not enlarged. UPPER ABDOMEN: Nodular thickening of the left adrenal gland. OTHER: No additional significant abnormality is seen. IMPRESSION: 1. Right apical parenchymal scarring. 2. Emphysematous changes noted.
== END | disposition home or self-care (01) ==
LOC: RADCTMAIN 09:20
PROVIDERS: ATTEND Internal Medicine
DX: J43.9 Emphysema, unspecified (principal); R04.2 Hemoptysis; J98.4 Other disorders of lung
CPT/HCPCS: 71260; Q9967

== ENCOUNTER → 2023-04-04 | Outpatient (CLI) | payer MEDICARE | END | disposition home or self-care (01) | LOC: LABWHC1 11:15 | PROVIDERS: ATTEND Internal Medicine | DX: E03.9 Hypothyroidism, unspecified (principal) | CPT/HCPCS: 36415; 84443 ==

== ENCOUNTER 2023-04-26 11:45 | Day surgery (SDC) | payer MEDICARE ==
[2023-04-24 09:03] VITALS: BMI 22.1
[~2023-04-26 11:45] MED LIST: LACTATED RINGERS 1,000 ML IV SCH; LIDOCAINE 1% (10MG/ML) FOR IV START INTRADERMA PRN
[2023-04-26] MEDS ORDERED: LIDOCAINE 2% (PF) 20 MG/ML 5 ML VIAL ONE (12:43)
[2023-04-26] MEDS ORDERED: MIDAZOLAM 2 MG/2 ML VIAL ONE (12:43)
[2023-04-26] MEDS ORDERED: PROPOFOL 10 MG/ML 20 ML VIAL IV ONE (12:43)
[2023-04-26] MEDS ORDERED: fentaNYL (PF) 50 MCG/ML 2 ML AMP ONE (12:43)
[2023-04-26 12:50] VITALS: TEMP 97.8
[2023-04-26] MEDS ORDERED: LIDOCAINE 2% INJ 20 MG/ML INTRATRACH ONE (12:55)
[2023-04-26 13:25] VITALS: RESP 16
[2023-04-26 13:42] VITALS: BP 159/80; PULSE 87
--- NOTE | 2023-04-26 20:07 | OP ---
OPERATIVE REPORT DATE OF SERVICE : PROCEDURES PERFORMED: Bronchoscopy and bronchoalveolar lavage/random washing. PREOPERATIVE DIAGNOSIS: Hemoptysis. POSTOPERATIVE DIAGNOSIS: Acute bronchitis. ANESTHESIA USED: IV conscious sedation. DESCRIPTION OF PROCEDURE: The patient was prepared according to the bronchoscopy protocol. She was brought into the bronchoscopy suite, placed in the supine position, we monitored her O2 saturation continuously. Blood pressure was intermittently monitored, and cardiac rhythm was continuously monitored. After adequate IV conscious sedation, the bronchoscope was inserted through the left naris down to the area of the vocal cords. The vocal cords were patent and lidocaine was instilled over the vocal cords, the bronchoscope was advanced further down to the trachea and examined the trachea, shahnaz, right upper lobe, right middle lobe, right lower lobe, left upper lobe, lingula and left lower lobe. There was significant amount of purulent secretions throughout the airways, random washing and bronchoalveolar lavage of different segments from both lungs were done, fluid was sent for different diagnostic studies. There was no evidence of any endobronchial tumor or any active hemoptysis noted. The procedure was well tolerated, and family updated on her condition. MMODL / IJN: [id number] /
[2023-04-27 05:29] LABS: Appearance,BF Slightly Hazy (Clear)
== END 2023-04-26 14:00 | disposition home or self-care (01) ==
LOC: ORWHC2ENDO 11:45
PROVIDERS: ATTEND Internal Medicine
DX: J20.9 Acute bronchitis, unspecified (principal); J44.9 Chronic obstructive pulmonary disease, unspecified; I10 Essential (primary) hypertension; E78.5 Hyperlipidemia, unspecified; E03.9 Hypothyroidism, unspecified; F17.210 Nicotine dependence, cigarettes, uncomplicated; Z86.73 Personal history of transient ischemic attack (TIA), and cerebral infarction without residual deficits; Z79.02 Long term (current) use of antithrombotics/antiplatelets; Z79.51 Long term (current) use of inhaled steroids; Z79.899 Other long term (current) drug therapy
CPT/HCPCS: 88108; 88305; 89050; 87070; 87205; 87116; 87102; 87206; 31624; J2001 ×2; J2250; J3010; J2704

== ENCOUNTER → 2023-06-14 | Outpatient (CLI) | payer MEDICARE ==
--- NOTE | 2023-06-14 11:09 | MM ---
Reason for Exam: Follow-up at short interval from prior study. Last screening mammogram was performed 6 month(s) ago. Patient History: Menarche at age 14. First Full-Term at age 21. Postmenopausal. Core Biopsy on the Right side. 12/14/1999, Benign Stereotactic Core Biopsy on the right side. Sister had breast cancer, right, age 64. Risk Values: Manuela 5 year model risk: 5.0%. NCI Lifetime model risk: 10.0%. Prior Study Comparison: 11/26/2020 Bilateral Screening Mammogram, [facility]. 12/03/2021 Bilateral MG 3D screening mammo w/cad, [facility]. 12/05/2022 Bilateral MG 3D screening mammo w/cad, [facility]. Tissue Density: Right: The breast tissue is heterogeneously dense. This may lower the sensitivity of mammography. Findings: Analyzed By CAD. A chronic nodularity with a biopsy clip noted. Area of asymmetry in the right breast cyst noted on prior exam is stable or slightly reduced in size and retrospectively seen dating back to 2018. Benign-appearing calcifications. Overall Assessment: Benign, BI-RAD 2 Management: Screening Mammogram of both breasts in 6 months. . Results were given to the patient verbally at the time of exam. Patient should continue monthly self-breast exams. A clinical breast exam by your physician is recommended on an annual basis. This exam should not preclude additional follow-up of suspicious palpable abnormalities. Note on Manuela scores and lifetime risk: 1. A Manuela score greater than 3% is considered moderate risk. If this is the case, consider specialist referral to assess eligibility for a risk reducing agent. 2. If overall lifetime risk for the development of breast cancer is 20% or higher, the patient may qualify for future screening with alternating mammogram and breast MRI. Electronically signed and approved by: Nba Barney M.D. Radiologis
== END | disposition home or self-care (01) ==
LOC: RADMAMWWP 10:35
PROVIDERS: ATTEND Internal Medicine
DX: N60.01 Solitary cyst of right breast (principal); R92.331 Mammographic heterogeneous density, right breast; Z78.0 Asymptomatic menopausal state; Z80.3 Family history of malignant neoplasm of breast
CPT/HCPCS: 77061; 77065

== ENCOUNTER → 2024-04-03 | Outpatient (CLI) | payer MEDICARE ==
[2024-04-03 11:41] LABS: T4, Free (Free Thyroxine) 0.54 ng/dL (0.78-2.19)
== END | disposition home or self-care (01) ==
LOC: LABWHC1 09:35
PROVIDERS: ATTEND Internal Medicine
DX: E03.9 Hypothyroidism, unspecified (principal)
CPT/HCPCS: 36415; 84439; 84443

== ENCOUNTER → 2024-04-05 | Outpatient (CLI) | payer MEDICARE ==
--- NOTE | 2024-04-14 13:01 | MM ---
Reason for Exam: Screening (asymptomatic). Last mammogram was performed 1 year(s) and 4 month(s) ago. Patient History: Menarche at age 14. First Full-Term at age 21. Postmenopausal. Core Biopsy on the Right side. 12/14/1999, Benign Stereotactic Core Biopsy on the right side. Sister had breast cancer, right, age 64. Risk Values: Manuela 5 year model risk: 5.0%. NCI Lifetime model risk: 9.4%. Prior Study Comparison: 12/03/2021 Bilateral MG 3D screening mammo w/cad, [facility]. 12/05/2022 Bilateral MG 3D screening mammo w/cad, [facility]. 06/14/2023 Right MG 3D diag mammo w/cad RT, [facility]. Tissue Density: The breasts are heterogeneously dense, which may obscure small masses. Findings: Analyzed By CAD. The pattern is symmetrical. There is a core marker adjacent to a chronic nodule within the right breast. No suspicious groups of microcalcifications, spiculated or lobular masses, architectural distortion or other secondary signs of malignancy are mammographically apparent. Overall Assessment: Benign, BI-RAD 2 Management: Screening Mammogram of both breasts in 1 year. A negative mammogram report should not preclude additional follow up of suspicious palpable abnormalities. Patient should continue monthly self breast exam. A clinical breast exam by your physician is recommended on an annual basis and results should be correlated with mammographic findings. Note on Manuela scores and lifetime risk: 1. A Manuela score greater than 3% is considered moderate risk. If this is the case, consider specialist referral to assess eligibility for a risk reducing agent. 2. If overall lifetime risk for the development of breast cancer is 20% or higher, the patient may qualify for future screening with alternating mammogram and breast MRI. [facility], , 04/14/2024 12:58 PM. Electronically signed and approved by: Gagan Simmons D.O. Radiologis
== END | disposition home or self-care (01) ==
LOC: RADMAMWWP 11:11
PROVIDERS: ATTEND Internal Medicine
DX: Z12.31 Encounter for screening mammogram for malignant neoplasm of breast
CPT/HCPCS: 77063; 77067

== ENCOUNTER → 2024-05-09 | Outpatient (CLI) | payer MEDICARE ==
[2024-05-09 16:50] LABS: T4, Free (Free Thyroxine) 1.83 ng/dL (0.80-1.80)
== END | disposition home or self-care (01) ==
LOC: LABWHC1 09:07
PROVIDERS: ATTEND Internal Medicine
DX: E03.9 Hypothyroidism, unspecified (principal)
CPT/HCPCS: 36415; 84439; 84443

== ENCOUNTER 2024-05-15 13:23 | Emergency (ER) | payer MEDICARE ==
--- NOTE | 2024-05-15 13:32 | ED ---
Syncope HPI - General Stated Complaint: syncope/fall Time Seen by Provider: 05/15/24 13:24 Source: RN notes reviewed, old records reviewed Mode of arrival: ambulatory Limitations: no limitations - History of Present Illness Initial Comments: This is a 78-year-old female to the ER for evaluation. Patient presents today for evaluation in regards to syncopal event of syncopal event that resulted in collapse and hitting her head patient is on blood thinners. Patient is unsure o f events surrounding, she notes she was doing CABG making some cabbage rolls when she found herself on the ground. Patient does not remember the fall was not a number hitting her head and was mildly unresponsive per the at bedside. Patient presents to the ER with head injury on blood thinners with occipital hematoma MD Complaint: loss of consciousness, felt faint, collapsed -: hour(s) Prodromal Symptoms: headache, lightheaded -: minutes(s) Witnessed: yes - by bystander, yes - by EMS Injuries Sustained Associated with Event: Head Current Symptoms: back to baseline History: previous syncopal episode - Related Data Home Medications Medication Instructions Recorded Confirmed Atorvastatin [Lipitor] 80 mg PO DAILY 02/25/18 05/15/24 atenoloL [Tenormin] 50 mg PO DAILY 11/14/18 05/15/24 Clopidogrel [Plavix] 75 mg PO DAILY 04/24/23 05/15/24 buPROPion [Wellbutrin] 100 mg PO DAILY 04/24/23 05/15/24 Aspirin EC [Ecotrin Low Dose] 81 mg PO DAILY 05/15/24 05/15/24 Levothyroxine Sodium [Synthroid] 150 mcg PO DAILY 05/15/24 05/15/24 Allergies Allergy/AdvReac Type Severity Reaction Status Date / Time No Known Allergies Allergy Verified 05/15/24 14:38 Review of Systems ROS Statement: Those systems with pertinent positive or pertinent negative responses have been documented in the HPI. ROS Other: All systems not noted in ROS Statement are negative. Past Medical History Past Medical History: COPD, CVA/TIA, Hyperlipidemia, Hypertension, Thyroid Disorder Additional Past Medical History / Comment(s): TIAx4 History of Any Multi-Drug Resistant Organisms: None Reported, MRSA Date of last positivie culture/infection: 03/01/18 MDRO Source:: urine Past Surgical History: No Surgical Hx Reported Additional Past Surgical History / Comment(s): bilateral cataract removed November 2017, colonoscopy 2020 kidney stent placed and removed 021 Past Anesthesia/Blood Transfusion Reactions: No Reported Reaction Date of Last Stent Placement:: 2020 Smoking Status: Former smoker General Exam General appearance: alert, in no apparent distress Head exam: Present: normocephalic, normal inspection. Absent: atraumatic (O ccipital hematoma) Eye exam: Present: normal appearance, PERRL, EOMI. Absent: scleral icterus, conjunctival injection, periorbital swelling ENT exam: Present: normal exam, mucous membranes moist Neck exam: Present: normal inspection. Absent: tenderness, meningismus, lymphadenopathy Respiratory exam: Present: normal lung sounds bilaterally. Absent: respiratory distress, wheezes, rales, rhonchi, stridor Cardiovascular Exam: Present: regular rate, normal rhythm, normal heart sounds. Absent: systolic murmur, diastolic murmur, rubs, gallop, clicks GI/Abdominal exam: Present: soft, normal bowel sounds. Absent: distended, tenderness, guarding, rebound, rigid Extremities exam: Present: normal inspection, full ROM, normal capillary refill. Absent: tenderness, pedal edema, joint swelling, calf tenderness Back exam: Present: normal inspection Neurological exam: Present: alert, oriented X3, CN II-XII intact Psychiatric exam: Present: normal affect, normal mood Skin exam: Present: warm, dry, intact, normal color. Absent: rash Course Vital Signs 05/15/24 05/15/24 05/15/24 13:28 13:30 13:45 Temperature 98.3 F 98.3 F Pulse Rate 89 85 82 Respiratory 18 20 20 Rate Blood Pressure 140/85 140/85 147/78 O2 Sat by Pulse 96 97 95 Oximetry 05/15/24 15:31 Temperature 98.3 F Pulse Rate 86 Respiratory 17 Rate Blood Pressure 161/90 O2 Sat by Pulse 96 Oximetry - Reevaluation(s) Reevaluation #1: 05/15/24 13:45 Medical records reviewed Reevaluation #2: 05/15/24 13:45 Patient symptoms unchanged 05/15/24 13:46 No recurrent syncope 05/15/24 15:20 Patient feels well and good enough for discharge able to ambulate Reevaluation #3: 05/15/24 15:20 Patient informed of results and questions answered Reevaluation #4: Was pt. sent in by a medical professional or institution ([facility], [facility], urgent care, hospital, or residential...) When possible be specific @ -no Did you speak to anyone other than the patient for history (EMS, parent, family, police, friend...)? What history was obtained from this source @ -no Did you review nursing and triage notes (agree or disagree)? Why? @ -agree Are old charts reviewed (outside hosp., previous admission, EMS record, old EKG, old radiological studies, urgent care reports/EKG's, residential records)? Report findings @ -yes Differential Diagnosis (chest pain, altered mental status, abdominal pain women, abdominal pain men, vaginal bleeding, weakness, fever, dyspnea, syncope, headache, dizziness, GI bleed, back pain, seizure, CVA, palpatations, mental health, musculoskeletal)? @ -prior EKG interpreted by me (3pts min.). @ -yes X-rays interpreted by me (1pt min.). @ -yes negative for acute disease CT interpreted by me (1pt min.). @ -Yes negative for acute disease U/S interpreted by me (1pt. min.). @ -no What testing was considered but not performed or refused? (CT, X-rays, U/S, labs)? Why? @ -none What meds were considered but not given or refused? Why? @ -none Did you discuss the management of the patient with other professionals (professionals i.e. [facility], [facility], lab, RT, psych nurse, administrator social welfare, toll collector supervisor, teacher, chief informatics officer, caseworker protective services)? Give summary @ -no Was smoking cessation discussed for >3mins.? @ -no Was critical care preformed (if so, how long)? @ -no Were there social determinants of health that impacted care today? How? (Homelessness, low income, unemployed, alcoholism, drug addiction, transportation, low edu. Level, literacy, decrease access to med. care, [facility], rehab)? @ -none Was there de-escalation of care discussed even if they declined (Discuss DNR or withdrawal of care, Hospice)? DNR status @ -no What co-morbidities impacted this encounter? (DM, HTN, Smoking, COPD, CAD, Cancer, CVA, ARF, Chemo, Hep., AIDS, mental health diagnosis, sleep apnea, morbid obesity)? @ -none Was patient admitted / discharged? Hospital course, mention meds given and route, prescriptions, significant lab abnormalities, going to OR and other pertinent info. @ - 78 female to the ER for evaluation patient with a fall fall with head injury she did hit her head fall on blood thinners. Patient does have occipital scalp hematoma but imaging otherwise negative, no headache or chest pain, patient does not appear to have a syncopal event prior to the fall she did pass out after hitting her head when it was originally thought that she may have passed out before the fall Admitted Undiagnosed new problem with uncertain prognosis? @ -no Drug Therapy requiring intensive monitoring for toxicity (Heparin, Nitro, Insulin, Cardizem)? @ -no Were any procedures done? @ -no Diagnosis/symptom? @ -Fall head injury scalp hematoma Acute, or Chronic, or Acute on Chronic? @ -Acute Uncomplicated (without systemic symptoms) or Complicated (systemic symptoms)? @ -Complicated Side effects of treatment? @ -no Exacerbation, Progression, or Severe Exacerbation? @ -exacerbation Poses a threat to life or bodily function? How? (Chest pain, USA, MO, pneumonia, PE, COPD, DKA, ARF, appy, cholecystitis, CVA, Diverticulitis, Homicidal, Suicidal, threat to staff... and all critical care pts) @ -yes extremes of age Reevaluation #5: Differential Syncope: Valvular disease, hypertrophic cardiomyopathy, pulmonary embolism, tamponade, tachycardia, bradycardia, MO, hypovolemia, hemorrhage, dissection, anemia, intracranial hemorrhage, seizure, hypoglycemia, carbon monoxide poisoning, this is not meant to be an all-inclusive list. EKG Findings - EKG Comments: EKG Findings:: EKG sinus 74 DC 180 QRS 93 QTc 429 - EKG Results: EKG: interpreted by ERMD Medical Decision Making - Medical Decision Making 78 female to the ER for evaluation patient with a fall fall with head injury she did hit her head fall on blood thinners. Patient does have occipital scalp hematoma but imaging otherwise negative, no headache or chest pain, patient does not appear to have a syncopal event prior to the fall she did pass out after hitting her head when it was originally thought that she may have passed out before the fall - Lab Data Result diagrams: 05/15/24 13:30 05/15/24 13:30 Lab Results 05/15/24 05/15/24 05/15/24 Range/Units 13:30 13:30 13:30 WBC 10.3 (3.8-10.6) k/uL RBC 4.45 (3.80-5.40) m/uL Hgb 13.3 (11.4-16.0) gm/dL Hct 41.5 (34.0-46.0) % MCV 93.2 (80.0-100.0) fL MCH 29.8 (25.0-35.0) pg MCHC 32.0 (31.0-37.0) g/dL RDW 15.2 (11.5-15.5) % Plt Count 385 (150-450) k/uL MPV 7.2 Neutrophils % 72 % Lymphocytes % 16 % Monocytes % 6 % Eosinophils % 4 % Basophils % 0 % Neutrophils # 7.5 (1.3-7.7) k/uL Lymphocytes # 1.6 (1.0-4.8) k/uL Monocytes # 0.7 (0-1.0) k/uL Eosinophils # 0.4 (0-0.7) k/uL Basophils # 0.0 (0-0.2) k/uL Hypochromasia Slight PT 10.5 (10.0-12.5) sec INR 1.0 (<1.2) APTT 20.5 L (22.0-30.0) sec Sodium 140 (137-145) mmol/L Potassium 4.2 (3.5-5.1) mmol/L Chloride 106 (98-107) mmol/L Carbon Dioxide 26 (22-30) mmol/L Anion Gap 8 mmol/L BUN 18 H (7-17) mg/dL Creatinine 1.21 H (0.52-1.04) mg/dL Est GFR (CKD-EPI)AfAm 50 (>60 ml/min/1.73 sqM) Est GFR (CKD-EPI)NonAf 44 (>60 ml/min/1.73 sqM) Glucose 112 H (74-99) mg/dL Plasma Lactic Acid Sj (0.7-2.0) mmol/L Calcium 9.4 (8.4-10.2) mg/dL Total Bilirubin 0.6 (0.2-1.3) mg/dL AST 27 (14-36) U/L ALT 22 (4-34) U/L Alkaline Phosphatase 91 (38-126) U/L Troponin I (0.000-0.034) ng/mL Total Protein 6.8 (6.3-8.2) g/dL Albumin 3.8 (3.5-5.0) g/dL Urine Opiates Screen (NotDetected) Ur Oxycodone Screen (NotDetected) Urine Methadone Screen (NotDetected) Ur Barbiturates Screen (NotDetected) U Tricyclic Antidepress (NotDetected) Ur Phencyclidine Scrn (NotDetected) Ur Amphetamines Screen (NotDetected) U Methamphetamines Scrn (NotDetected) U Benzodiazepines Scrn (NotDetected) Urine Cocaine Screen (NotDetected) U Marijuana (THC) Screen (NotDetected) Serum Alcohol <10 mg/dL Blood Type Blood Type Confirm Blood Type Recheck Bld Type Recheck Status Antibody Screen Spec Expiration Date 05/15/24 05/15/24 05/15/24 Range/Units 13:30 13:30 13:38 WBC (3.8-10.6) k/uL RBC (3.80-5.40) m/uL Hgb (11.4-16.0) gm/dL Hct (34.0-46.0) % MCV (80.0-100.0) fL MCH (25.0-35.0) pg MCHC (31.0-37.0) g/dL RDW (11.5-15.5) % Plt Count (150-450) k/uL MPV Neutrophils % % Lymphocytes % % Monocytes % % Eosinophils % % Basophils % % Neutrophils # (1.3-7.7) k/uL Lymphocytes # (1.0-4.8) k/uL Monocytes # (0-1.0) k/uL Eosinophils # (0-0.7) k/uL Basophils # (0-0.2) k/uL Hypochromasia PT (10.0-12.5) sec INR (<1.2) APTT (22.0-30.0) sec Sodium (137-145) mmol/L Potassium (3.5-5.1) mmol/L Chloride (98-107) mmol/L Carbon Dioxide (22-30) mmol/L Anion Gap mmol/L BUN (7-17) mg/dL Creatinine (0.52-1.04) mg/dL Est GFR (CKD-EPI)AfAm (>60 ml/min/1.73 sqM) Est GFR (CKD-EPI)NonAf (>60 ml/min/1.73 sqM) Glucose (74-99) mg/dL Plasma Lactic Acid Sj 1.0 (0.7-2.0) mmol/L Calcium (8.4-10.2) mg/dL Total Bilirubin (0.2-1.3) mg/dL AST (14-36) U/L ALT (4-34) U/L Alkaline Phosphatase (38-126) U/L Troponin I <0.012 (0.000-0.034) ng/mL Total Protein (6.3-8.2) g/dL Albumin (3.5-5.0) g/dL Urine Opiates Screen (NotDetected) Ur Oxycodone Screen (NotDetected) Urine Methadone Screen (NotDetected) Ur Barbiturates Screen (NotDetected) U Tricyclic Antidepress (NotDetected) Ur Phencyclidine Scrn (NotDetected) Ur Amphetamines Screen (NotDetected) U Methamphetamines Scrn (NotDetected) U Benzodiazepines Scrn (NotDetected) Urine Cocaine Screen (NotDetected) U Marijuana (THC) Screen (NotDetected) Serum Alcohol mg/dL Blood Type Blood Type Confirm A Positive Blood Type Recheck Bld Type Recheck Status Antibody Screen Spec Expiration Date 05/15/24 05/15/24 Range/Units 14:11 15:11 WBC (3.8-10.6) k/uL RBC (3.80-5.40) m/uL Hgb (11.4-16.0) gm/dL Hct (34.0-46.0) % MCV (80.0-100.0) fL MCH (25.0-35.0) pg MCHC (31.0-37.0) g/dL RDW (11.5-15.5) % Plt Count (150-450) k/uL MPV Neutrophils % % Lymphocytes % % Monocytes % % Eosinophils % % Basophils % % Neutrophils # (1.3-7.7) k/uL Lymphocytes # (1.0-4.8) k/uL Monocytes # (0-1.0) k/uL Eosinophils # (0-0.7) k/uL Basophils # (0-0.2) k/uL Hypochromasia PT (10.0-12.5) sec INR (<1.2) APTT (22.0-30.0) sec Sodium (137-145) mmol/L Potassium (3.5-5.1) mmol/L Chloride (98-107) mmol/L Carbon Dioxide (22-30) mmol/L Anion Gap mmol/L BUN (7-17) mg/dL Creatinine (0.52-1.04) mg/dL Est GFR (CKD-EPI)AfAm (>60 ml/min/1.73 sqM) Est GFR (CKD-EPI)NonAf (>60 ml/min/1.73 sqM) Glucose (74-99) mg/dL Plasma Lactic Acid Sj (0.7-2.0) mmol/L Calcium (8.4-10.2) mg/dL Total Bilirubin (0.2-1.3) mg/dL AST (14-36) U/L ALT (4-34) U/L Alkaline Phosphatase (38-126) U/L Troponin I (0.000-0.034) ng/mL Total Protein (6.3-8.2) g/dL Albumin (3.5-5.0) g/dL Urine Opiates Screen Not Detected (NotDetected) Ur Oxycodone Screen Not Detected (NotDetected) Urine Methadone Screen Not Detected (NotDetected) Ur Barbiturates Screen Not Detected (NotDetected) U Tricyclic Antidepress Not Detected (NotDetected) Ur Phencyclidine Scrn Not Detected (NotDetected) Ur Amphetamines Screen Not Detected (NotDetected) U Methamphetamines Scrn Not Detected (NotDetected) U Benzodiazepines Scrn Not Detected (NotDetected) Urine Cocaine Screen Not Detected (NotDetected) U Marijuana (THC) Screen Not Detected (NotDetected) Serum Alcohol mg/dL Blood Type A Positive Blood Type Confirm Blood Type Recheck No Previous Record Bld Type Recheck Status CABO Indicated Antibody Screen NEGATIVE Spec Expiration Date 05/18/20242329 - EKG Data -: EKG Interpreted by Me - Radiology Data Radiology results: report reviewed (CT brain C-spine chest x-ray pelvis x-ray negative for acute disease), image reviewed Disposition Clinical Impression: Fall, Syncope, Hematoma of occipital region of scalp Disposition: HOME SELF-CARE Condition: Good Instructions (If sedation given, give patient instructions): Fall Prevention for Older Adults (ED), Hematoma (ED) Is patient prescribed a controlled substance at d/c from ED?: No Referrals: Therese Omer MD [Primary Care Provider] - 1-2 days Time of Disposition: 15:00
[2024-05-15] MEDS: SODIUM CHLORIDE 0.9% 1,000 ML IV STA (13:33)
[2024-05-15 13:35] VITALS: TEMP 98.3
[2024-05-15 13:48] LABS: Basophils % (A) 0 %; Eosinophils # (A) 0.4 k/uL (0-0.7); Eosinophils % (A) 4 %; HCT 41.5 % (34.0-46.0); HGB 13.3 gm/dL (11.4-16.0); Hypochromasia Slight; Lymphocytes # (A) 1.6 k/uL (1.0-4.8); Lymphocytes % (A) 16 %; MCH 29.8 pg (25.0-35.0); MCV 93.2 fL (80.0-100.0); Mean Platelet Volume 7.2; Monocytes # (A) 0.7 k/uL (0-1.0); Monocytes % (A) 6 %; Neutrophils # (A) 7.5 k/uL (1.3-7.7); Neutrophils % (A) 72 %; Platelet Count 385 k/uL (150-450); RBC 4.45 m/uL (3.80-5.40); RDW 15.2 % (11.5-15.5); WBC 10.3 k/uL (3.8-10.6)
--- NOTE | 2024-05-15 13:51 | XR ---
EXAMINATION TYPE: XR chest 1V portable DATE OF EXAM: 05/15/2024 1:40 PM COMPARISON: CT chest 04/03/2023, chest radiograph 01/08/2021 TECHNIQUE: XR chest 1V portable Portable AP radiograph of the chest. CLINICAL INDICATION:Female, 78 years old with history of trauma; FINDINGS: Lungs/Pleura: There is flattening of the diaphragm with increased lucency of the lungs. No evidence o f pneumothorax, pleural effusion or focal consolidation. Biapical pleural-parenchymal scarring. Pulmonary vascularity: Unremarkable. Heart/mediastinum: Cardiomediastinal silhouette is unremarkable. Atherosclerotic calcifications are seen in the aorta. Musculoskeletal: No acute osseous pathology. IMPRESSION: 1. No acute cardiopulmonary disease process. 2. COPD changes. [facility], , 05/15/2024 1:48 PM
--- NOTE | 2024-05-15 13:52 | XR ---
EXAMINATION TYPE: XR pelvis AP view DATE OF EXAM: 05/15/2024 1:40 PM INDICATION: Patient age:Female; 78 years old; Reason for study: Trauma; [facility]. COMPARISON: CT angiogram 11/11/2020 TECHNIQUE: The pelvis was examined in a single projection. FINDINGS: There is no evidence of fracture or dislocation. There is no soft tissue abnormality. Pelv ic phleboliths are present. Multilevel degenerative changes of the lower spine. Vascular sclerosis. IMPRESSION: No acute osseous pathology. [facility], , 05/15/2024 1:50 PM
[2024-05-15 14:01] LABS: ALT 22 U/L (4-34); AST 27 U/L (14-36); African American GFR (CKD) 50 (>60 ml/min/1.73 sqM); Albumin 3.8 g/dL (3.5-5.0); Alcohol <10 mg/dL; Alkaline Phosphatase 91 U/L (38-126); Anion Gap 8 mmol/L; Blood Urea Nitrogen 18 mg/dL (7-17); Calcium 9.4 mg/dL (8.4-10.2); Carbon Dioxide 26 mmol/L (22-30); Chloride 106 mmol/L (98-107); Glucose 112 mg/dL (74-99); Non-African American GFR(CKD) 44 (>60 ml/min/1.73 sqM); Potassium 4.2 mmol/L (3.5-5.1); Sodium 140 mmol/L (137-145); Total Bilirubin 0.6 mg/dL (0.2-1.3); Total Protein 6.8 g/dL (6.3-8.2)
--- NOTE | 2024-05-15 14:01 | CT ---
EXAMINATION TYPE: CT brain cspine wo con CT DLP: 1271.7 mGycm, Automated exposure control for dose reduction was used. DATE OF EXAM: 05/15/2024 1:52 PM COMPARISON: CT brain 01/08/2021, 02/25/2018. CLINICAL INDICATION:Female, 78 years old with history of fall; Fall on thinners TECHNIQUE: Brain: Multiple axial CT images of the brain were obtained without IV contrast. Cspine: Axial CT images from the skull base to the inferior aspect of T2 we obtained without intraven ous contrast. Coronal and sagittal reformatted images were also reviewed. FINDINGS: Brain: Extra-axial spaces: No abnormal extra-axial fluid collections. Ventricular system: Within normal limits Cerebral parenchyma: No acute intraparenchymal hemorrhage or mass effect. The carpio-white junction is well differentiated. Confluent hypoattenuating areas are seen within the periventricular and subcort ical white matter. Remote bilateral basal ganglia lacunar infarcts. Cerebellum: Unremarkable. Mass effect: No evidence of midline shift. Intracranial vasculature: Atherosclerotic calcifications of the intracranial vessels. Soft tissues: Small left posterior scalp hematoma measuring up to 6 mm in thickness. Calvarium/osseous structures: No depressed skull fracture. Paranasal sinuses and mastoid air cells: Clear. Visualized orbits: Senile calcific scleral plaques are present. Bilateral aphakia. Cervical spine: Fracture: None. Osseous structures: Unremarkable Vertebral alignment: Within normal limits. Spinal canal/Neural Foramina: Disc osteophyte complexes at C6-C7 with at least mild spinal canal sten osis. Facet joint uncovertebral joint arthropathy scattered throughout the cervical spine with varyin g degrees of neural foraminal stenosis. Neck soft tissues: Prevertebral soft tissues are within normal limits. Other: The airway is patent. Biapical pleural parenchymal scarring with centrilobular and paraseptal emphysematous changes. Bilateral carotid bulb calcifications. IMPRESSION: 1. No acute intracranial process. 2. Remote lacunar injuries along with nonspecific white matter changes likely secondary to chronic m icroangiopathy. 3. Small left posterior scalp hematoma. 4. No evidence of cervical spine fracture. 5. Mild multilevel degenerative disc disease. [facility], , 05/15/2024 1:58 PM
[2024-05-15 14:12] LABS: Prothrombin Time 10.5 sec (10.0-12.5)
[2024-05-15 14:17] LABS: Partial Thromboplastin Time 20.5 sec (22.0-30.0)
[2024-05-15 15:46] LABS: Amphetamine Screen,Urine Not Detected (NotDetected); Barbiturate Screen,Urine Not Detected (NotDetected); Benzodiazepines Screen,Urine Not Detected (NotDetected); Cocaine Screen,Urine Not Detected (NotDetected); Methadone Screen, Urine Not Detected (NotDetected); Opiate Screen,Urine Not Detected (NotDetected); Oxycodone Screen, Urine Not Detected (NotDetected); Phencyclidine Screen,Urine Not Detected (NotDetected); Tricyclic Antidepressant,Urine Not Detected (NotDetected); Urn Cannabinoid Scrn Not Detected (NotDetected)
[2024-05-15 15:47] VITALS: BP 161/90; PULSE 86; RESP 17
== END 2024-05-15 15:40 | disposition home or self-care (01) ==
LOC: EC 13:23
DX: S00.03XA Contusion of scalp, initial encounter (principal); Z87.891 Personal history of nicotine dependence; W18.30XA Fall on same level, unspecified, initial encounter
CPT/HCPCS: 36415; 93005; 86900; 86901; 80053; 83605; 84484; 85025; 85610; 85730; 86850; 80306; 80320; 72170; 71045; 72125; 70450; 99285; 96360; G0390

== ENCOUNTER 2024-10-06 18:41 | Emergency (ER) | payer MEDICARE ==
[2024-10-06 19:11] VITALS: TEMP 97.7
--- NOTE | 2024-10-06 19:38 | CT ---
EXAMINATION TYPE: CT brain cspine wo con DATE OF EXAM: 10/06/2024 COMPARISON: CLINICAL INDICATION: Female, 79 years old with history of Trauma; [facility], fall, on thinners TECHNIQUE: CT scan of the head and cervical spine are performed without contrast. CT DLP: 1246.[address] CTDI: mGy Automated exposure control for dose reduction was used. FINDINGS: There is no acute intracranial hemorrhage, mass effect, or midline shift identified. The ventricles and sulci are within normal limits in size. The globes are intact and the visualized sinuses are ammon ar. Left parietal scalp hematoma. Cervical spine is visualized in its entirety from C1 through upper thoracic levels and demonstrates s atisfactory alignment without evidence of acute fracture or dislocation. Prevertebral soft tissue ap pears within normal limits. The C1-C2 articulation is unremarkable. IMPRESSION: 1. There is no acute fracture or dislocation evident in the cervical spine. 2. No acute intracranial hemorrhage, mass effect, or midline shift is seen. [facility], , 10/06/2024 7:35 PM
[2024-10-06] MEDS: SODIUM CHLORIDE 0.9% 1,000 ML IV STA (20:33)
--- NOTE | 2024-10-06 20:36 | ED ---
General Adult HPI - General Source: patient, RN notes reviewed, old records reviewed Mode of arrival: wheelchair Limitations: no limitations <Michael Whittington - Last Filed: 10/06/24 20:31> <Brien Jalloh - Last Filed: 10/06/24 21:48> - General Chief complaint: Fall Stated complaint: Syncope Time Seen by Provider: 10/06/24 19:20 - History of Present Illness Initial comments: This is a 79-year-old female presents to the emergency department complaining of cooking dinner and got lightheaded and passed out she states she fell backwards hit her left scapula and the back of her head. states she was out for about 30 seconds. Woke up she recognized everybody around. There was no postictal state. Patient currently denies any neck pain she says the area of hematoma on the back of her head is sore. Patient denies any other back pain patient [place] any extremity pain patient has any abdominal pain. Patient denies chest pain. (Michael Whittington) - Related Data Home Medications Medication Instructions Recorded Confirmed Atorvastatin [Lipitor] 80 mg PO DAILY 02/25/18 10/06/24 atenoloL [Tenormin] 50 mg PO DAILY 11/14/18 10/06/24 Clopidogrel [Plavix] 75 mg PO DAILY 04/24/23 10/06/24 Aspirin EC [Ecotrin Low Dose] 81 mg PO DAILY 05/15/24 10/06/24 Albuterol Nebulized [Ventolin 2.5 mg INHALATION RT-Q8H PRN 10/06/24 10/06/24 Nebulized] Levothyroxine Sodium [Synthroid] 112 mcg PO DAILY 10/06/24 10/06/24 buPROPion SR [Wellbutrin SR] 150 mg PO DAILY 10/06/24 10/06/24 Allergies Allergy/AdvReac Type Severity Reaction Status Date / Time No Known Allergies Allergy Verified 10/06/24 19:47 Review of Systems ROS Other: All systems not noted in ROS Statement are negative. <Michael Whittington - Last Filed: 10/06/24 20:31> ROS Other: All systems not noted in ROS Statement are negative. <Brien Jalloh - Last Filed: 10/06/24 21:48> ROS Statement: Those systems with pertinent positive or pertinent negative responses have been documented in the HPI. Past Medical History Past Medical History: COPD, CVA/TIA, Hyperlipidemia, Hypertension, Thyroid Disorder Additional Past Medical History / Comment(s): TIAx4 History of Any Multi-Drug Resistant Organisms: None Reported, MRSA Date of last positivie culture/infection: 03/01/18 MDRO Source:: urine Past Surgical History: No Surgical Hx Reported Additional Past Surgical History / Comment(s): bilateral cataract removed November 2017, colonoscopy 2020 kidney stent placed and removed 021 Past Anesthesia/Blood Transfusion Reactions: No Reported Reaction Date of Last Stent Placement:: 2020 Past Psychological History: No Psychological Hx Reported Smoking Status: Former smoker Past Alcohol Use History: None Reported Past Drug Use History: None Reported <Michael Whittington - Last Filed: 10/06/24 20:31> General Exam Limitations: no limitations <Michael Whittington - Last Filed: 10/06/24 20:31> - General Exam Comments Initial Comments: GENERAL: Patient is well-developed and well-nourished. Patient is nontoxic and well- hydrated and is in mild distress. ENT: Neck is soft and supple. No significant lymphadenopathy is noted. Oropharynx is clear. Moist mucous membranes. Neck has full range of motion without eliciting any pain. Patient has a hematoma in the occipital region of her scalp EYES: The sclera were anicteric and conjunctiva were pink and moist. Extraocular movements were intact and pupils were equal round and reactive to light. Eyelid s were unremarkable. PULMONARY: Unlabored respirations. Good breath sounds bilaterally. No audible rales rhonchi or wheezing was noted. CARDIOVASCULAR: There is a regular rate and rhythm without any murmurs gallops or rubs. ABDOMEN: Soft and nontender with normal bowel sounds. SKIN: Skin is clear with no lesions or rashes and otherwise unremarkable. NEUROLOGIC: Patient is alert and oriented x3. Cranial nerves II through XII are grossly intact. Motor and sensory are also intact. Normal speech, volume and content. Symmetrical smile. MUSCULOSKELETAL: Full range of motion of all 4 extremities that she does have some tenderness on the left scapula LYMPHATICS: No significant lymphadenopathy is noted PSYCHIATRIC: Normal psychiatric evaluation. (Michael Whittington) Course Vital Signs 10/06/24 10/06/24 19:08 20:30 Temperature 97.7 F Pulse Rate 74 72 Respiratory 18 16 Rate Blood Pressure 150/75 154/85 O2 Sat by Pulse 96 96 Oximetry Medical Decision Making <WhittingtonMichael - Last Filed: 10/06/24 20:31> - Lab Data Result diagrams: 10/06/24 20:20 10/06/24 20:20 <YeimiBrien Ray - Last Filed: 10/06/24 21:48> - Medical Decision Making EKG is interpreted by myself but EKG shows a sinus rhythm at 74 bpm MS interval is 187 QRS is 89 QT interval is 393 QTc is 420. Patient's EKG shows no ST segment elevation or depression. Was pt. sent in by a medical professional or institution (, [facility], TRAINING DEVELOPMENT DIRECTOR, urgent care, hospital, or intermediate...) When possible be specific @ -[No] Did you speak to anyone other than the patient for history (EMS, parent, family, police, friend...)? What history was obtained from this source @ -[No] Did you review nursing and triage notes (agree or disagree)? Why? @ -[I reviewed and agree with nursing and triage notes] Were old charts reviewed (outside hosp., previous admission, EMS record, old EKG, old radiological studies, urgent care reports/EKG's, intermediate records)? Report findings @ -[No old charts were reviewed] Differential Diagnosis? @ -Differential Syncope: Valvular disease, hypertrophic cardiomyopathy, pulmonary embolism, tamponade, tachycardia, bradycardia, PR, hypovolemia, hemorrhage, dissection, anemia, intracranial hemorrhage, seizure, hypoglycemia, carbon monoxide poisoning, this is not meant to be an all-inclusive list. EKG interpreted by me (3pts min.). @ -[As above] X-rays interpreted by me (1pt min.). @ -[None done] CT interpreted by me (1pt min.). @ -[None done] U/S interpreted by me (1pt. min.). @ -[None done] What testing was considered but not performed or refused? (CT, X-rays, U/S, labs)? Why? @ -[None] What meds were considered but not given or refused? Why? @ -[None] Did you discuss the management of the patient with other professionals (professionals i.e. Dr., PA, TRAINING DEVELOPMENT DIRECTOR, lab, RT, psych nurse, administrator social welfare, snaker tractor driver, teacher, credit products officer, complex case manager)? Give summary @ -Dr. Jalloh will be taking over the care of this patient at 9 PM (Michael Whittington) Patient care signed out to me by previous shift physician, Dr. Whittington. Briefly, p atient 79-year-old female experienced syncope and fall. Plan at signout was to follow-up with pending laboratory evaluation and imaging evaluation. Imaging studies are negative. Labs are unremarkable. Patient seen and evaluated at bedside at 9:46 PM found to be stable medical addition. She denies any cardiac history. Denies any prodromal palpitations. Patient well-appearing in no acute distress physical examination is benign. Patient agreeable for discharge with close follow-up with primary care doctor. Return precautions discussed. Patient has no high risk syncopal features. Diagnosis/symptom? @ -Syncope, no high risk features, head contusion Acute, or Chronic, or Acute on Chronic? @ -Default Uncomplicated (without systemic symptoms) or Complicated (systemic symptoms)? @ -Complicated Side effects of treatment? @ -None Exacerbation, Progression, or Severe Exacerbation] @ -No Poses a threat to life or bodily function? @ -no (Brien Jalloh) - Lab Data Lab Results 10/06/24 10/06/24 10/06/24 Range/Units 20:20 20:20 20:20 WBC 13.3 H (3.8-10.6) k/uL RBC 5.23 (3.80-5.40) m/uL Hgb 14.1 (11.4-16.0) gm/dL Hct 44.9 (34.0-46.0) % MCV 85.9 (80.0-100.0) fL MCH 26.9 (25.0-35.0) pg MCHC 31.4 (31.0-37.0) g/dL RDW 15.8 H (11.5-15.5) % Plt Count 424 (150-450) k/uL MPV 7.7 Neutrophils % 76 % Lymphocytes % 15 % Monocytes % 6 % Eosinophils % 2 % Basophils % 0 % Neutrophils # 10.1 H (1.3-7.7) k/uL Lymphocytes # 2.1 (1.0-4.8) k/uL Monocytes # 0.7 (0-1.0) k/uL Eosinophils # 0.2 (0-0.7) k/uL Basophils # 0.0 (0-0.2) k/uL Hypochromasia Slight PT 10.5 (10.0-12.5) sec INR 0.9 (<1.2) APTT 21.7 L (22.0-30.0) sec Sodium 137 (137-145) mmol/L Potassium 4.9 (3.5-5.1) mmol/L Chloride 101 (98-107) mmol/L Carbon Dioxide 28 (22-30) mmol/L Anion Gap 8 mmol/L BUN 26 H (7-17) mg/dL Creatinine 1.18 H (0.52-1.04) mg/dL Est GFR (CKD-EPI)AfAm 51 (>60 ml/min/1.73 sqM) Est GFR (CKD-EPI)NonAf 44 (>60 ml/min/1.73 sqM) Glucose 120 H (74-99) mg/dL Calcium 9.9 (8.4-10.2) mg/dL Magnesium 2.0 (1.6-2.3) mg/dL Total Bilirubin 0.6 (0.2-1.3) mg/dL AST 31 (14-36) U/L ALT 25 (4-34) U/L Alkaline Phosphatase 98 (38-126) U/L Troponin I (0.000-0.034) ng/mL Total Protein 7.7 (6.3-8.2) g/dL Albumin 4.2 (3.5-5.0) g/dL 10/06/24 Range/Units 20:20 WBC (3.8-10.6) k/uL RBC (3.80-5.40) m/uL Hgb (11.4-16.0) gm/dL Hct (34.0-46.0) % MCV (80.0-100.0) fL MCH (25.0-35.0) pg MCHC (31.0-37.0) g/dL RDW (11.5-15.5) % Plt Count (150-450) k/uL MPV Neutrophils % % Lymphocytes % % Monocytes % % Eosinophils % % Basophils % % Neutrophils # (1.3-7.7) k/uL Lymphocytes # (1.0-4.8) k/uL Monocytes # (0-1.0) k/uL Eosinophils # (0-0.7) k/uL Basophils # (0-0.2) k/uL Hypochromasia PT (10.0-12.5) sec INR (<1.2) APTT (22.0-30.0) sec Sodium (137-145) mmol/L Potassium (3.5-5.1) mmol/L Chloride (98-107) mmol/L Carbon Dioxide (22-30) mmol/L Anion Gap mmol/L BUN (7-17) mg/dL Creatinine (0.52-1.04) mg/dL Est GFR (CKD-EPI)AfAm (>60 ml/min/1.73 sqM) Est GFR (CKD-EPI)NonAf (>60 ml/min/1.73 sqM) Glucose (74-99) mg/dL Calcium (8.4-10.2) mg/dL Magnesium (1.6-2.3) mg/dL Total Bilirubin (0.2-1.3) mg/dL AST (14-36) U/L ALT (4-34) U/L Alkaline Phosphatase (38-126) U/L Troponin I <0.012 (0.000-0.034) ng/mL Total Protein (6.3-8.2) g/dL Albumin (3.5-5.0) g/dL Disposition <Michael Whittington - Last Filed: 10/06/24 20:31> Is patient prescribed a controlled substance at d/c from ED?: No Time of Disposition: 21:48 <Brien Jalloh - Last Filed: 10/06/24 21:48> Clinical Impression: Syncope, Head contusion Disposition: HOME SELF-CARE Condition: Fair Instructions (If sedation given, give patient instructions): Fall Prevention for Older Adults (ED), Syncope (ED) Referrals: Therese Omer MD [Primary Care Provider] - 1-2 days
[2024-10-06 20:37] LABS: Basophils % (A) 0 %; Eosinophils # (A) 0.2 k/uL (0-0.7); Eosinophils % (A) 2 %; HCT 44.9 % (34.0-46.0); HGB 14.1 gm/dL (11.4-16.0); Hypochromasia Slight; Lymphocytes # (A) 2.1 k/uL (1.0-4.8); Lymphocytes % (A) 15 %; MCH 26.9 pg (25.0-35.0); MCHC 31.4 g/dL (31.0-37.0); MCV 85.9 fL (80.0-100.0); Mean Platelet Volume 7.7; Monocytes # (A) 0.7 k/uL (0-1.0); Monocytes % (A) 6 %; Neutrophils # (A) 10.1 k/uL (1.3-7.7); Neutrophils % (A) 76 %; Platelet Count 424 k/uL (150-450); RBC 5.23 m/uL (3.80-5.40); RDW 15.8 % (11.5-15.5); WBC 13.3 k/uL (3.8-10.6)
[2024-10-06 20:44] LABS: ALT 25 U/L (4-34); AST 31 U/L (14-36); African American GFR (CKD) 51 (>60 ml/min/1.73 sqM); Albumin 4.2 g/dL (3.5-5.0); Alkaline Phosphatase 98 U/L (38-126); Anion Gap 8 mmol/L; Blood Urea Nitrogen 26 mg/dL (7-17); Calcium 9.9 mg/dL (8.4-10.2); Carbon Dioxide 28 mmol/L (22-30); Chloride 101 mmol/L (98-107); Glucose 120 mg/dL (74-99); Non-African American GFR(CKD) 44 (>60 ml/min/1.73 sqM); Potassium 4.9 mmol/L (3.5-5.1); Sodium 137 mmol/L (137-145); Total Bilirubin 0.6 mg/dL (0.2-1.3); Total Protein 7.7 g/dL (6.3-8.2)
[2024-10-06 20:52] LABS: INR 0.9 (<1.2); Prothrombin Time 10.5 sec (10.0-12.5)
--- NOTE | 2024-10-06 20:57 | XR ---
EXAMINATION TYPE: XR chest 2V DATE OF EXAM: 10/06/2024 8:54 PM COMPARISON: 05/15/2024 CLINICAL INDICATION: Female, 79 years old with history of Chest Pain: Shortness of breath TECHNIQUE: XR chest 2V views of the chest are obtained. FINDINGS: Scattered senescent parenchymal changes noted. Hyperinflation compatible with COPD. No evidence for infiltrate. No evidence for atelectasis. Heart size is stable. Mediastinal structures are stable and grossly unremarkable. No evidence for hilar prominence. Degenerative changes dorsal spine. IMPRESSION: 1. No evidence for acute pulmonary disease. [facility], , 10/06/2024 8:55 PM
--- NOTE | 2024-10-06 21:01 | XR ---
EXAMINATION TYPE: XR scapula LT DATE OF EXAM: 10/06/2024 COMPARISON: NONE CLINICAL INDICATION: Female, 79 years old with history of Trauma; TECHNIQUE: 2 views of the left scapula FINDINGS: No evidence for displaced scapular fracture. Glenohumeral joint is intact. AC joint is with in normal limits. Visualized ribs appear to be grossly intact as well. Left lung is visualized is wit hin normal limits. IMPRESSION: Unremarkable study [facility], , 10/06/2024 8:59 PM
[2024-10-06 21:07] LABS: Partial Thromboplastin Time 21.7 sec (22.0-30.0)
[2024-10-06 21:56] VITALS: BP 163/94; PULSE 79; RESP 18
== END 2024-10-06 21:54 | disposition home or self-care (01) ==
LOC: EC 18:41
DX: S00.93XA Contusion of unspecified part of head, initial encounter (principal); R55 Syncope and collapse; Z87.891 Personal history of nicotine dependence; Z86.73 Personal history of transient ischemic attack (TIA), and cerebral infarction without residual deficits; W18.09XA Striking against other object with subsequent fall, initial encounter; Y93.G3 Activity, cooking and baking
CPT/HCPCS: 36415; 70450; 71046; 72125; 80053; 83735; 84484; 85025; 85610; 85730; 93005; 96360; 99284

== ENCOUNTER → 2024-10-11 | Outpatient (CLI) | payer MEDICARE ==
--- NOTE | 2024-10-11 13:07 | XR ---
EXAMINATION TYPE: XR ribs bilateral DATE OF EXAM: 10/11/2024 12:56 PM INDICATION: Patient age:Female; 79 years old; Reason for study: S23.41XD SPRAIN OF RIBS, SUBSEQUENT ENCOUNTER; [facility]. pain COMPARISON: Chest radiograph 10/06/2024, left scapular radiograph 10/06/2024 TECHNIQUE: Frontal and oblique views of the bilateral ribs. FINDINGS: Acute mildly displaced left posterior fifth rib fracture. No other fractures identified. Ov erall, the lungs are clear. No visualized sizable pneumothorax. The cardiac silhouette is normal in s ize. Atherosclerotic calcification of the aorta. IMPRESSION: Acute mildly displaced left posterior fifth rib fracture. [facility], , 10/11/2024 1:05 PM
== END | disposition home or self-care (01) ==
LOC: LABWHC1 12:23
PROVIDERS: ATTEND Internal Medicine
DX: S23.41XD Sprain of ribs, subsequent encounter (principal); X58.XXXD Exposure to other specified factors, subsequent encounter
CPT/HCPCS: 71110